=== PATIENT | female | born 1955 | race Caucasian/White ===

== ENCOUNTER → 2019-12-27 13:38 | Outpatient (CLI) | payer MEDICARE, OTHER, SELFPAY ==
[2019-12-28 00:34] LABS: COVID19 Sendout Not Detected (Not Detect)
== END ==
PROVIDERS: Visit Provider Nurse Practitioner
DX: Z01.812 Encounter for preprocedural laboratory examination (principal)
CPT/HCPCS: 87635

== ENCOUNTER 2019-12-30 06:52 | Day surgery (SDC) | payer MEDICARE, OTHER, SELFPAY ==
[2019-12-24 07:29] VITALS: BMI 25.2
[2019-12-30] VITALS (15 sets, daily range): BP systolic 93–161; BP diastolic 44–83; PULSE 82–110; RESP 13–33; TEMP 35.8–36.4; O2SAT 94–100; BMI 24.7
[2019-12-30] MEDS: LACTATED RINGERS 1,000 ML 100 ML IV ×2 (07:36→08:24)
--- NOTE | 2019-12-30 07:39 | PM.PREOP ---
Pre-operative Note COVID-19 COVID-19 status: Negative Result date/Date tested (Pos, Neg/Pending): 12/27/19 Interval Note History & Physical reviewed/Exam performed by Physician: Yes Changes to H&P: No
[2019-12-30] MEDS: MIDAZOLAM 2 MG/2 ML VIAL IV (07:48)
[2019-12-30] MEDS: CEFAZOLIN 2 GM/100 ML FROZ.PIGGY IV (07:49)
--- NOTE | 2019-12-30 07:50 | SUR.PREOP ---
0710 late entry - highly anxious, very talkative, difficult to keep on task.
[2019-12-30] MEDS: BUPIVACAINE 0.5% W/ EPI (PF) 10 ML VIAL 60 ML INJ (08:19)
--- NOTE | 2019-12-30 08:52 | PM.OP.1 ---
Operative Date/Time/Diagnoses Date of procedure: 12/30/19 Time of procedure: 07:45 Pre-op diagnosis: rectocele Post-op diagnosis: same Procedure & Clinicians Procedure: Posterior repair Same procedure as scheduled: Yes Indications: rectocele Surgeon: Magy Zhu Lamination Inspector: Magalys Archibald Anesthesia Type: General Operative Notes Findings: Rectocele, mild cystocele, mild apical descent Closure Type: primary Applied: catheter Estimated Blood Loss (mL): 10 Procedure in detail: Findings: Moderate rectocele. Mild apical descent. Mild cystocel. Cervix and uterus surgically absent. Mild relaxation of the perineal body. No other vaginal or vulvar abnormalities. UOP: N/A EBL: <10ccs IVF: 1400ccs After informed consent was obtained, the patient was taken to the operating room where general anesthesia was obtained without difficulty. She was placed in the dorsal lithotomy position with SCDs in place and operating, with proper placement in the stirrups confirmed. She was prepped and draped in the usual fashion, and placed in slight trendelenburg positioning. 20ccs of 0.5% lidocaine was injected into the posterior vaginal mucosa to facilitate hydrodilation. The posterior vaginal wall was opened vertically and midline to the apex of the rectocele, and the cut edges held with Allis clamps. The perineal body was incised for 1cm and undermined to faciitate reapproximation of the perineal body at the end of the case. The vaginal mucosa was dissected from the rectocele with a combination of blunt dissection and the metzenbaum scissors, exposing perirectal fascia. The perirectal fascia was reapproximated with 2-0 vicryl in a purse string fashion to reduce the bulk of the rectocele. Deep interrupted sutures were placed with 0 vicryl to further reapproximate the anatoliy rectal fascia. A small amount of excess vagina mucosa was trimmed. The posterior vaginal wall was closed with 2-0 vicryl in a running, locked fashion to the introitus. The same suture was used to reapproximate the perineal body, and the perineal skin reapproximated with 2-0 vicryl. A rectal exam at the end of the case confirmed that no sutures were penetrating the rectal tissue. A tobias catheter and vaginal packing were placed at the end of the case. The patient received 2g Ancef at the beginning of the case. She was taken to the PACU in stable condition. Post-operative Condition: stable Disposition: PACU Plan for aftercare: Routine postoperative care
--- NOTE | 2019-12-30 09:00 | SUR.PHASEI ---
Brief run of sinus bradycardia after a PVC, HR 46. Resolved quickly.
--- NOTE | 2019-12-30 09:18 | SUR.PHASEI ---
Dr. Staples notified [facility] 184. No new orders.
--- NOTE | 2019-12-30 09:47 | PC.NURSE ---
Day shift: Pt on AC unit from PACU at approx 0945. Denies pain or chest pain. Peripad checked w/ LATRINE CLEANER w/ scant discharge. SCD's on. Avelar output 825mls light clear yellow and emptied by LATRINE CLEANER.
--- NOTE | 2019-12-30 10:16 | SUR.PHASEI ---
Patient transferred to the floor. VS stable. Liana-pad unchanged. IV saline locked. Belongings bag with patient.
[2019-12-30] MEDS: IBUPROFEN 400 MG TABLET PO ×3 (11:13→23:56)
[2019-12-30] MEDS: DOCUSATE 100 MG CAPSULE PO (11:50)
--- NOTE | 2019-12-30 12:03 | PM.GYNOP.1 ---
Operative Date/Time/Diagnoses Date of procedure: 12/30/19 Time of procedure: 12:04 Pre-op diagnosis: Term intrauterine History of prior section Post-op diagnosis: same Procedure & Clinicians Procedure: Procedures Operation Date: 12/30/19 07:45 Actual Procedures Side Surgeon p Posterior Colporrhaphy Magy Zhu MD
[2019-12-30] MEDS: INSULIN ASPART 100 UNIT/ML 10ML VIAL SUBCUT (13:12)
[2019-12-30] MEDS: HYDROMORPHONE 0.5 MG INJ IV (14:07)
[2019-12-30 14:35] LABS: Add Manual Diff / Slide Review NO; Basophils Absolute Auto 0 /uL (0-100); Basophils Percent Auto 0.2 % (0-2); Eosinophils Absolute Auto 0 /uL (0-450); Eosinophils Percent Auto 0.1 % (2-4); Hematocrit 40.4 % (36-46); Hemoglobin 13.5 g/dL (12.0-16.0); Lymphocytes Absolute Auto 400 /uL (1100-4500); Lymphocytes Percent Auto 4.6 % (25-40); Mean Corpuscular HGB Conc 33.4 % (30-36); Mean Corpuscular Hemoglobin 30.3 PG (26-34); Mean Corpuscular Volume 90.8 fL (80-100); Monocytes Absolute Auto 100 /uL (0-900); Monocytes Percent Auto 1.1 % (3-14); Neutrophils Absolute Auto 9100 /uL (1500-7000); Platelet Count 282 X10^3/uL (150-400); Red Blood Cell Count 4.45 X10^6/uL (4.0-5.2); Red Cell Distribution Width 12.1 % (11.6-14.8); White Blood Cell Count 9.7 X10^3/uL (4.5-11.0)
[2019-12-30 14:49] LABS: Hemoglobin A1C% w Est Avg Glu 6.5 % (4.0-6.0)
[2019-12-30] MEDS: ONDANSETRON 4 MG/2 ML INJ IV (15:32)
[2019-12-30] MEDS: INSULIN ASPART 100 UNIT/ML INSULN PEN SUBCUT ×3 (16:39→21:22)
--- NOTE | 2019-12-30 16:50 | P.PN_ITS ---
Subjective Subjective Date Patient Seen: 12/30/19 Time Patient Seen: 16:50 Interval history: This patient is POD#0 s/p uncomplicated posterior repair. The patient is meeting postoperative milestones appropriately, with good pain control, minimal vaginal bleeding, good urine output with a tobias catheter and vaginal packing in place, and tolerating PO intake well. The patient previously reported good diabetes and HTN control, but has had elevated FSGs since the HI CU. She is now on FSGs ACHS and a sliding scale. Patient mildly tachycardic, agitated though this is unchanged from her baseline at clinic visits. Patient herself reports feeling well, appears at her clinic baseline. Exam Vital Signs (past 8 hours): - 12/30/19 08:52 12/30/19 08:57 12/30/19 09:01 Temperature 97.1 F L Pulse Rate 84 83 83 Respiratory Rate 33 H 17 18 Blood Pressure 95/50 L 93/46 L 98/44 L Pulse Oximetry 98 94 94 12/30/19 09:07 12/30/19 09:12 12/30/19 09:27 Temperature Pulse Rate 92 H 104 H 102 H Respiratory Rate 13 18 16 Blood Pressure 111/60 138/61 146/78 H Pulse Oximetry 96 97 99 12/30/19 09:29 12/30/19 09:47 12/30/19 10:17 Temperature 96.5 F L 97.0 F L 97.0 F L Pulse Rate 97 H 96 H Respiratory Rate 14 16 Blood Pressure 148/75 H 153/78 H Pulse Oximetry 100 99 12/30/19 10:47 12/30/19 11:47 12/30/19 12:47 Temperature 97.0 F L 97.1 F L 97.1 F L Pulse Rate 100 H 100 H 110 H Respiratory Rate 16 16 16 Blood Pressure 148/78 H 147/75 H 161/82 H Pulse Oximetry 97 97 98 12/30/19 15:28 Temperature 96.4 F L Pulse Rate 107 H Respiratory Rate 20 Blood Pressure 152/76 H Pulse Oximetry 98 Oxygen Delivery Method Room Air Oxygen Flow Rate 0 GI Palpation: soft and No tender Other: Packing minimally tinted, no external bleeding. Tobias catheter in place. Psych Appearance: disheveled Mental Status: other (mildly agitated but at her clinic baseline) Mood: other (mildly agitated but at her clinic baseline) Objective Labs Result Diagrams: 12/30/19 14:25 Labs: Laboratory Results - last 24 hr 12/30/19 12/30/19 14:25 Unknown WBC 9.7 RBC 4.45 Hgb 13.5 Hct 40.4 MCV 90.8 MCH 30.3 MCHC 33.4 RDW 12.1 Plt Count 282 Neut % (Auto) 94.0 H Lymph % (Auto) 4.6 L [place] % (Auto) 1.1 L Eos % (Auto) 0.1 L Baso % (Auto) 0.2 Neut # (Auto) 9100 H Lymph # (Auto) 400 L [place] # (Auto) 100 Eos # (Auto) 0 Baso # (Auto) 0 Hemoglobin A1c 6.5 H Assessment & Plan Post-op Postoperative Procedures: Procedures Operation Date: 12/30/19 07:45 Actual Procedures Side Surgeon p Posterior Colporrhaphy Magy Zhu MD Postoperative day: 0 Postoperative status: doing well Postoperative status narrative: Patient with difficult to control blood glucose, on discussion does report that her PCP has been trying to get her to take insuli n for years. Will hold home meds for now and continue FSGs and sliding scale. Patient mildly hypertensive, home BP medications taken in AM and held this AM. Will monitor BPs as well. - FSGs ACHS, though repeat in 2 hours given continued elevation - Holding home meds, close monitoring of vitals signs - SCDs while sedentary, incentive spirometer provided and use encouraged - Carbohydrate controlled diet - For removal of tobias catheter and packing in AM Postoperative plan: see orders, ambulate and advance diet Time Spent With Patient Time with patient: less than 15 minutes Quality VTE Deep Vein Thrombosis/Pulmonary Embolism Present on Admission: No
[2019-12-30] MEDS: FAMOTIDINE 20 MG/50 ML PIGGYBACK 200 MG IV (16:53)
[2019-12-30] MEDS: OXYCODONE IR 5 MG TABLET PO (22:15)
[2019-12-31 00:13] VITALS: BP 149/77; PULSE 89; RESP 16; TEMP 36.3; O2SAT 99
[2019-12-31 04:22] VITALS: BP 146/68; PULSE 84; RESP 16; TEMP 36.2; O2SAT 100
[2019-12-31 05:13] LABS: Add Manual Diff / Slide Review NO; Basophils Absolute Auto 0 /uL (0-100); Basophils Percent Auto 0.2 % (0-2); Eosinophils Absolute Auto 100 /uL (0-450); Eosinophils Percent Auto 0.8 % (2-4); Hematocrit 35.5 % (36-46); Hemoglobin 12.4 g/dL (12.0-16.0); Lymphocytes Absolute Auto 1100 /uL (1100-4500); Lymphocytes Percent Auto 11.5 % (25-40); Mean Corpuscular HGB Conc 34.9 % (30-36); Mean Corpuscular Hemoglobin 30.7 PG (26-34); Mean Corpuscular Volume 87.9 fL (80-100); Monocytes Absolute Auto 600 /uL (0-900); Monocytes Percent Auto 6.4 % (3-14); Neutrophils Absolute Auto 8100 /uL (1500-7000); Neutrophils Percent Auto 81.1 % (50-75); Platelet Count 249 X10^3/uL (150-400); Red Blood Cell Count 4.04 X10^6/uL (4.0-5.2); Red Cell Distribution Width 11.8 % (11.6-14.8); White Blood Cell Count 9.9 X10^3/uL (4.5-11.0)
[2019-12-31] MEDS: IBUPROFEN 400 MG TABLET PO ×2 (05:39→11:40)
[2019-12-31 07:25] VITALS: BP 136/67; PULSE 87; RESP 18; TEMP 36.3; O2SAT 100
--- NOTE | 2019-12-31 08:00 | P.PN_ITS ---
Subjective Subjective Date Patient Seen: 12/31/19 Time Patient Seen: 08:00 Interval history: This patient is a 64yo POD#1 s/p uncomplicated posterior repair, feeling well this AM. Patient's FSGs have normalized overnight, and she reports feeling well with good pain control, scant bleeding on pad, tolerating copious PO, and passing flatus. Packing and tobias removed at bedside. Exam Vital Signs (past 8 hours): - 12/31/19 00:13 12/31/19 04:22 Temperature 97.4 F L 97.2 F L Pulse Rate 89 84 Respiratory Rate 16 16 Blood Pressure 149/77 H 146/68 H Pulse Oximetry 99 100 Oxygen Delivery Method Room Air Oxygen Flow Rate 0 Const General: cooperative, healthy appearing and comfortable Resp Auscultation: clear to auscultation bilaterally Cardio Rate: regular rate Rhythm: regular rhythm GI Palpation: soft and No tender External Female Exam: normal external appearance Speculum Exam - Vagina: normal appearance of the vagina Other: Packing lightly tinged with blood, no bright red blood, no active bleeding Objective Labs Result Diagrams: 12/31/19 04:30 Labs: Laboratory Results - last 24 hr 12/30/19 12/30/19 12/31/19 14:25 Unknown 04:30 WBC 9.7 9.9 RBC 4.45 4.04 Hgb 13.5 12.4 Hct 40.4 35.5 L MCV 90.8 87.9 MCH 30.3 30.7 MCHC 33.4 34.9 RDW 12.1 11.8 Plt Count 282 249 Neut % (Auto) 94.0 H 81.1 H Lymph % (Auto) 4.6 L 11.5 L [place] % (Auto) 1.1 L 6.4 Eos % (Auto) 0.1 L 0.8 L Baso % (Auto) 0.2 0.2 Neut # (Auto) 9100 H 8100 H Lymph # (Auto) 400 L 1100 [place] # (Auto) 100 600 Eos # (Auto) 0 100 Baso # (Auto) 0 0 Hemoglobin A1c 6.5 H Assessment & Plan Post-op Assessment and plan (1) Prolapse of female pelvic organs: Assessment and Plan narrative: This patient is doing well s/p her posterior repair, meeting postoperative goals appropriately and for a voiding trial and trial of ambulation this AM. The patient is feeling well and eager for discharge, and discharge precautions were reiterated. - VT and ambulation this AM - CBC stable, UOP good, FSGs normalizing, VSS - Lisinopril 40mg and protonix 20mg x1 ordered - Patient uses stool softener at home, encouraged to take BID instead of daily if constipated after surgery - activity limitations and precautions discussed, will reiterate prior to discharge Postoperative Procedures: Procedures Operation Date: 12/30/19 07:45 Actual Procedures Side Surgeon p Posterior Colporrhaphy Magy Zhu MD Postoperative day: 1 Postoperative status: doing well Postoperative plan: routine post-op care, ambulate, voiding trials and discharge Time Spent With Patient Time with patient: 15-24 minutes Quality VTE Deep Vein Thrombosis/Pulmonary Embolism Present on Admission: No
[2019-12-31] MEDS: INSULIN ASPART 100 UNIT/ML INSULN PEN SUBCUT ×2 (08:21→11:42)
[2019-12-31] MEDS: DOCUSATE 100 MG CAPSULE PO (08:24)
[2019-12-31] MEDS: lisinopriL 20 MG TABLET 40 MG PO (08:24)
[2019-12-31] MEDS: OXYCODONE IR 5 MG TABLET PO ×2 (08:24→12:54)
[2019-12-31] MEDS: PANTOPRAZOLE 40 MG VIAL 20 MG IV (08:25)
--- NOTE | 2019-12-31 09:55 | PM.DS.1 ---
History of Present Illness History of Present Illness Date Patient Seen: 12/31/19 Time Patient Seen: 09:56 Chief complaint: *[id number] Narrative: This patient is a 64yo s/p uncomplicated posterior repair for a symptomatic rectocele. She has a mild cystocele and apical descent, but did not desire these repaired at this time. Her postoperative recovery was complicated by elevated FSGs on postop day 0 that improved by POD#1. Her recovery was otherwise uncomplicated, and she was discharged on POD#1 after meeting all postoperative goals. Discharge Providers Provider Discharge Date: 12/31/19 Primary care physician: Olesya Sellers MD Consults: 12/30/19 10:11 Consult to Discharge Planning Routine Comment: Discharge provider: Magy Zhu MD Summary Hospital Course Discharge Diagnosis: Rectocele s/p posterior repair Hospital Course: This patient is a 64yo s/p uncomplicated posterior repair for a symptomatic rectocele. She has a mild cystocele and apical descent, but did not desire these repaired at this time. Her postoperative recovery was complicated by elevated FSGs on postop day 0 that improved by POD#1. Her recovery was otherwise uncomplicated, and she was discharged on POD#1 after meeting all postoperative goals. Status at Discharge Cognitive/behavioral status at discharge: at baseline, oriented Functional status at discharge: independent ambulation Overall status at discharge: patient is progressing back to baseline Time Spent with Patient Time spent: Greater than 30 minutes Exam Vital Signs (past 8 hours): - 12/31/19 04:22 12/31/19 07:25 Temperature 97.2 F L 97.4 F L Pulse Rate 84 87 Respiratory Rate 16 18 Blood Pressure 146/68 H 136/67 Pulse Oximetry 100 100 Oxygen Delivery Method Room Air Oxygen Flow Rate 0 Narrative Exam Narrative: Patient ambulating freely about room. Objective Labs Result Diagrams: 12/31/19 04:30 Labs: Laboratory Results - last 24 hr 12/30/19 12/30/19 12/31/19 14:25 Unknown 04:30 WBC 9.7 9.9 RBC 4.45 4.04 Hgb 13.5 12.4 Hct 40.4 35.5 L MCV 90.8 87.9 MCH 30.3 30.7 MCHC 33.4 34.9 RDW 12.1 11.8 Plt Count 282 249 Neut % (Auto) 94.0 H 81.1 H Lymph % (Auto) 4.6 L 11.5 L [place] % (Auto) 1.1 L 6.4 Eos % (Auto) 0.1 L 0.8 L Baso % (Auto) 0.2 0.2 Neut # (Auto) 9100 H 8100 H Lymph # (Auto) 400 L 1100 [place] # (Auto) 100 600 Eos # (Auto) 0 100 Baso # (Auto) 0 0 Hemoglobin A1c 6.5 H Discharge Plan Discharge Plan Patient Disposition: Home Discharge Med Rec/Prescriptions Prescriptions: New oxycodone 5 mg tablet 5 mg PO Q8H PRN (Reason: pain) Qty: 20 RF: 0 docusate sodium [Colace] 100 mg capsule 100 mg PO BID Qty: 30 RF: 0 Continued metformin 500 mg tablet 1,000 mg PO SEEINSTR RF: 0 aspirin 81 mg tablet,delayed release (DR/EC) 81 mg PO DAILY RF: 0 lisinopril 40 mg tablet 40 mg PO DAILY RF: 0 atorvastatin 40 mg tablet 40 mg PO DAILY RF: 0 glipizide 10 mg tablet 20 mg PO BEDTIME RF: 0 Ocuvite Eye Health 50 mg-15 unit- 4.5 mg-2.5 mg tablet,chewable 2 tab PO DAILY RF: 0 diphenhydramine HCl [Benadryl] 25 mg capsule 25 mg PO BEDTIME RF: 0 multivitamin Tablet 1 tab PO DAILY RF: 0 cholecalciferol (vitamin D3) [Vitamin D3] 25 mcg (1,000 unit) Capsule 50 mcg PO DAILY RF: 0 Follow up/Referrals: Magy Zhu MD [Physician] - 2 Weeks (Postop check) Discharge Orders: Discharge (Order); Ordered 12/31/19 Ordered By: Magy Zhu Provider Discharge Instructions Activity: Nothing in the vagina for 8 weeks. No bathing or swimming for 8 weeks. Avoid heavy lifting over 10 lbs for 8 weeks. If you develop increasing bleeding, discharge, pain, fevers, chills, urinary tract infection symptoms, trouble breathing, chest pain, or any other concerning symptoms, call or come to the emergency department. Skin/Wound/Dressing Care Report to your healthcare provider any signs of infection, such as:: chills, fever, night sweats, increased pain, unusual drainage and unusual redness Visit Report/Discharge Packet Stand Alone Forms: Surgery Discharge Discharge Data Primary Care Provider: Olesya Sellers Attending Provider: Magy Zhu VTE Deep Vein Thrombosis/Pulmonary Embolism Present on Admission: No
--- NOTE | 2019-12-31 11:29 | CM.DANOTE ---
DCP/Assessment: Reviewed chart. Patient is a 64yr old female admitted to [facility] for elective Rectocele posterior repair performed on 12-30-[address] Zhu. PCP is Dr. Sellers. Primary payor is 1)Medicare 2)[employer]. Met with patient this AM explained CM/SW role. Patient on phone with her daughter in [place] at time of visit. Patient reports that her current plan is home today. Spoke with RN whom confirms discharge, and reports that patient's spouse is picking her up after lunch. Currently, patient without any d/c planning needs. P: Home today. CÉSAR Dodson Discharge Planning/Care Management CM Discharge Assessment Start: 12/31/19 11:23 Freq: Status: Active Protocol: Document 12/31/19 11:23 KJS (Rec: 12/31/19 11:29 KJS [id number]) Discharge Planning Assessment Assigned Airplane Fueler CÉSAR Dodson Contact Information Pepe Meadows (spouse) # [phone] Advance Directives? No History Provided By Patient,Medical Record Prior Living Arrangements House Household Members spouse Type of transporation used prior to Drives own vehicle admit Independent with ADL's Yes Is patient alert and oriented? Yes Barriers to Discharge No Discharge Plan Home Transportation Arrangement Family to provide transport. Referrals Initiated None needed Whiteboard Updated in Patient Room with Yes name and ext. # of Airplane Fueler Review Status In Process Next Review Type Continued Stay Review Pre-Anesthesia Assessment Start: 12/24/19 07:29 Freq: Status: Active Protocol: Document 12/24/19 07:29 CAB (Rec: 12/24/19 07:35 CAB [id number]) Pre-Anesthesia Assessment Patient Information Reviewed Via Chart Review Primary Care Provider Rich Reynolds Seen Specialist in Last 12 Months Yes Specialist Seen Floor Cleaner Primary Language Bolivian Height 149.86 cm Weight 56.699 kg Body Mass Index (BMI) 25.2 Barriers to Learning None Hx Anesthesia Reactions No Anesthesia Review Requested No Corporate Development Intern No Smoking Status Never smoker History of Falling (Recent or History of No ) Patient is completely paralyzed or No completely immobile Mental Status Oriented to own ability Is patient on oxygen? No Does patient have GRIFFIN/SOB No Hx Sleep Apnea No Currently Taking a Beta Akash No Hx Chest Pain No Hx SOB No Hx Syncope or Dizziness No Anti-Coagulant Therapy No Has a Equipment Analyst No Cardiac Testing No Hx Pacemaker/ICD No Pacemaker Rep Required? No Cardiac Clearance Received Not Applicable Bladder Pattern Incontinent,Incontinent, Stress,Retention Urinary Catheter Present No Hx Urinary Self Catheterization No Diabetes No Patient No Lactating No Presence of External or Internal Medical No Devices Have you had any close contact with Unknown someone diagnosed with COVID-19? Marital Status Lives With spouse Patient Discharge Plan Description Return Home
--- NOTE | 2019-12-31 12:58 | PC.NURSE ---
Day shift: Pt left unit at approx 1300 via WC to car driven by her sppouse. Taken by JOSE MIGUEL Novak. Paperwork signed and all questions answered. Pt has all personal belongings. Pt also has MD scrip for oxycodone.
== END 2019-12-31 12:59 | disposition home or self-care (01) ==
LOC: OR 06:55 → AC 06:55
PROVIDERS: PCP Student in an Organized Health Care Education/Training Program; Referring Provider Obstetrics & Gynecology; Visit Provider Obstetrics & Gynecology
PROC: (CPT 57250; principal; 2019-12-30 07:45)
DX: N81.6 Rectocele (principal); N81.10 Cystocele, unspecified; I10 Essential (primary) hypertension; K21.9 Gastro-esophageal reflux disease without esophagitis; E11.9 Type 2 diabetes mellitus without complications; Z79.84 Long term (current) use of oral hypoglycemic drugs
CPT/HCPCS: 57250; 36415; 82962; 83036; 85025; C9113; J0690; J1100; J1170; J2250; J2405; J2704; J3010

== ENCOUNTER 2021-01-15 19:15 | Emergency (ER) | payer MEDICARE, OTHER, SELFPAY ==
[2019-12-30 10:27] VITALS: BMI 24.7
[2021-01-15 19:53] LABS: COVID19 -Nasal RAPID POSITIVE (Negative)
[2021-01-15 19:54] VITALS: BP 154/64; PULSE 83; RESP 15; TEMP 36.2; O2SAT 99; BMI 23.4
--- NOTE | 2021-01-15 21:26 | ED.GENADULT ---
HPI - General Adult General Chief complaint: Upper Respiratory Symptoms Stated complaint: Possible COVID, Taste Off, Dizzy,Left Kidney Pain Time Seen by Provider: 01/15/21 21:22 Source: patient Mode of arrival: Ambulatory Limitations: no limitations History of Present Illness HPI narrative: 65-year-old female who is here for evaluation of a couple days of feeling like her taste is off, dizzy, left-sided flank pain, she is not immunized against COVID. No fevers. No shortness of breath. No coughing. Has not tried anything for symptoms prior to arrival. She is concerned about COVID-19. Related Data Home Medications Medication Instructions Recorded Confirmed aspirin 81 mg tablet,delayed 81 mg PO DAILY 08/02/19 02/11/20 release atorvastatin 40 mg tablet 40 mg PO DAILY 08/02/19 02/11/20 glipizide 10 mg tablet 20 mg PO BEDTIME 08/02/19 02/11/20 lisinopril 40 mg tablet 40 mg PO DAILY 08/02/19 02/11/20 metformin 500 mg tablet 1,000 mg PO SEEINSTR 08/02/19 02/11/20 vit C 50 mg-E 15 unit-zinc cit 4.5 2 tab PO DAILY 08/02/19 02/11/20 mg-lutein 2.5 mg-zeaxan chew tablet ([employer]) diphenhydramine HCl 25 mg capsule 25 mg PO BEDTIME 09/06/19 02/11/20 (Benadryl) cholecalciferol (vitamin D3) 25 50 mcg PO DAILY 12/30/19 02/11/20 mcg (1,000 unit) capsule (Vitamin D3) multivitamin 1 tab PO DAILY 12/30/19 02/11/20 Previous Rx's Medication Instructions Recorded docusate sodium 100 mg capsule 100 mg PO BID #30 cap 12/31/19 (Colace) Allergies Allergy/AdvReac Type Severity Reaction Status Date / Time garlic AdvReac Intermediate acid reflux Verified 02/11/20 10:43 Influenza Virus Vaccines AdvReac Mild Verified 02/11/20 10:43 acetaminophen [From Tylenol] AdvReac Itching Verified 02/11/20 10:43 Review of Systems Constitutional Constitutional: Denies fever(s) Cardiovascular Comments: No chest pain Respiratory Comments: No cough Gastrointestinal Comments: Left-sided flank pain Integumentary/Breasts Comments: No rashes Hematologic/Lymphatic On Anticoagulants: No Patient History Medical History Acid reflux Allergies (~1962) Anxiety (~2018) Asthma (~2019) Benign familial tremor (~1964) Bronchitis Chicken pox (~1962) H/O vaginal delivery Measles (~1963) Mumps (~1958) Wears dentures Surgical History Anesthesia H/O vaginal hysterectomy History of hernia repair (~1988) History of tonsillectomy (~1971) History of tubal ligation (~1978) Tumor (~1965) Family History Father Bone cancer History of heart disease Hypertension Mother History of heart disease Hypertension Stroke Brother History of heart disease Hypertension Sister History of heart disease Grandfather Suicide Social History household members: spouse Smoking Status: Never smoker alcohol intake: never Smoking Status: Never smoker Substance Use Type: does not use Exam Initial Vital Signs Initial Vital Signs: Vital Signs Temperature 97.1 F L 01/15/21 19:54 Pulse Rate 83 01/15/21 19:54 Respiratory Rate 15 01/15/21 19:54 Blood Pressure 154/64 H 01/15/21 19:54 Pulse Oximetry 99 01/15/21 19:54 Const General: cooperative HENMT Head: normal to inspection Resp Effort & Inspection: normal respiratory effort Auscultation: clear to auscultation bilaterally Cardio Rate: regular rate GI Inspection: normal to inspection Skin General: no rashes or lesions noted Neuro General: patient alert, patient awake and moves all extremities Extrem General: normal to inspection and capillary refill normal Psych Appearance: grossly normal and well kempt Course Orders Ordered: ED Orders 01/15/21 19:30 COVID19 -Nasal swab/Pre-Proc Stat Vital Signs Vital signs: Vital Signs - 8 hr 01/15/21 19:54 Temperature 97.1 F L Pulse Rate 83 Respiratory Rate 15 Blood Pressure 154/64 H Pulse Oximetry 99 Medical Decision Making Lab Data Lab results reviewed: Yes I reviewed the patient's lab results. Labs: Lab Results 01/15/21 Range/Units 19:30 SARS-CoV-2 (PCR) Positive H (Negative) MDM Narrative Medical decision making narrative: Patient's COVID is positive. No respiratory distress. No hypoxia. She is not immunized. Will hold on further workup for now. Patient was given current recommendations as far as isolating herself. We did discuss things she could try at home for headaches and fevers. She was given strict return precautions. She expressed understanding and agreement. Discharge Plan Departure Patient Disposition: Home Clinical Impression: COVID-19 Instructions: DI for COVID-19 (Suspected or Confirmed ) Activity Restrictions/Additional Instructions: Your positive for COVID today. Your to now quarantine yourself for the next 10 days and until your symptom free for 24 hours. Continue all of your medications as directed. Contact her primary doctor for follow-up. Return to the emergency department for any new or worsening symptoms Prescriptions: No Action metformin 500 mg tablet 1,000 mg PO SEEINSTR RF: 0 aspirin 81 mg tablet,delayed release (DR/EC) 81 mg PO DAILY RF: 0 lisinopril 40 mg tablet 40 mg PO DAILY RF: 0 atorvastatin 40 mg tablet 40 mg PO DAILY RF: 0 glipizide 10 mg tablet 20 mg PO BEDTIME RF: 0 Ocuvite Eye Health 50 mg-15 unit- 4.5 mg-2.5 mg tablet,chewable 2 tab PO DAILY RF: 0 diphenhydramine HCl [Benadryl] 25 mg capsule 25 mg PO BEDTIME RF: 0 multivitamin Tablet 1 tab PO DAILY RF: 0 cholecalciferol (vitamin D3) [Vitamin D3] 25 mcg (1,000 unit) Capsule 50 mcg PO DAILY RF: 0 docusate sodium [Colace] 100 mg capsule 100 mg PO BID Qty: 30 RF: 0 Referrals: Olesya Sellers MD [Primary Care Provider] -
== END 2021-01-15 21:37 | disposition home or self-care (01) ==
PROVIDERS: Emergency Provider Emergency Medicine; PCP Student in an Organized Health Care Education/Training Program
DX: U07.1 COVID-19 (principal); R10.9 Unspecified abdominal pain
CPT/HCPCS: 87635; 99281; 99282; C9803

== ENCOUNTER 2021-08-08 23:05 | Emergency (ER) | payer MEDICARE, OTHER, SELFPAY ==
[2019-12-30 10:27] VITALS: BMI 24.7
[2021-08-08 23:15] VITALS: BP 200/95; PULSE 109; RESP 20; TEMP 36.6; O2SAT 100; BMI 23.2
[2021-08-08 23:19] VITALS: PULSE 94; RESP 26; O2SAT 94
--- NOTE | 2021-08-08 23:26 | ED_ITS ---
HPI - Arrhythmia/Palpitations General Chief Complaint: Arrhythmia/Palpitations Stated Complaint: heart racing/ankle swelling Time Seen by Provider: 08/08/21 23:07 Source: patient Mode of arrival: Ambulatory History of Present Illness HPI narrative: Patient is a 66-year-old female who is here for evaluation of several months of increasing occasions where she is having heart racing and palpitations and feeling like it is skipping beats. No fevers. No chest pain. No lightheadedness. Has not passed out. Has not been evaluated for this in the past. She states she is a diabetic. She has also noticed over the past couple days she is having swelling in her ankles. Related Data Home Medications Medication Instructions Recorded Confirmed aspirin 81 mg tablet,delayed 81 mg PO DAILY 08/02/19 02/15/21 release atorvastatin 40 mg tablet 40 mg PO DAILY 08/02/19 02/15/21 lisinopril 40 mg tablet 40 mg PO DAILY 08/02/19 02/15/21 metformin 500 mg tablet 1,000 mg PO SEEINSTR 08/02/19 02/15/21 vit C 50 mg-E 15 unit-zinc cit 4.5 2 tab PO DAILY 08/02/19 02/15/21 mg-lutein 2.5 mg-zeaxan chew tablet ([email or web address]) diphenhydramine HCl 25 mg capsule 25 mg PO BEDTIME 09/06/19 02/15/21 (Benadryl) cholecalciferol (vitamin D3) 25 50 mcg PO DAILY 12/30/19 02/15/21 mcg (1,000 unit) capsule (Vitamin D3) multivitamin 1 tab PO DAILY 12/30/19 02/15/21 Previous Rx's Medication Instructions Recorded furosemide 20 mg tablet (Lasix) 20 mg PO DAILY #5 tab 08/09/21 furosemide 20 mg tablet (Lasix) 20 mg PO DAILY 5 Days tab 08/09/21 Allergies Allergy/AdvReac Type Severity Reaction Status Date / Time garlic AdvReac Intermediate acid reflux Verified 02/15/21 15:30 Influenza Virus Vaccines AdvReac Mild Verified 02/15/21 15:30 acetaminophen [From Tylenol] AdvReac Itching Verified 02/15/21 15:30 Review of Systems Constitutional Constitutional: Denies chills and Denies headache(s) ENT Ears, Nose, Mouth, and Throat: Denies headache(s) Cardiovascular Cardiovascular: Denies chest pain, Reports rapid heart rate, Reports pedal edema, Reports irregular heart rhythm, Denies lightheadedness and Denies dyspnea Respiratory Respiratory: Denies dyspnea Gastrointestinal Gastrointestinal: Reports system reviewed and no additional complaints, except as documented Musculoskeletal Musculoskeletal: Reports system reviewed and no additional complaints, except as documented and Reports as per HPI Integumentary/Breasts Skin/Breast: Reports system reviewed and no additional complaints, except as documented Neurologic Neurologic: Denies headache(s) Hematologic/Lymphatic On Anticoagulants: No Patient History Medical History Acid reflux Allergies (~1962) Anxiety (~2018) Asthma (~2019) Benign familial tremor (~1964) Bronchitis Chicken pox (~1962) H/O vaginal delivery Measles (~1963) Mumps (~1958) POP-Q stage 2 cystocele Vaginal vault prolapse after hysterectomy Wears dentures Surgical History Anesthesia H/O vaginal hysterectomy History of hernia repair (~1988) History of tonsillectomy (~1971) History of tubal ligation (~1978) Tumor (~1965) Family History Father Bone cancer History of heart disease Hypertension Mother History of heart disease Hypertension Stroke Brother History of heart disease Hypertension Sister History of heart disease Grandfather Suicide Social History household members: spouse Smoking Status: Never smoker alcohol intake: never Smoking Status: Never smoker alcohol intake frequency: 0-2 drinks per day Substance Use Type: does not use Exam Initial Vital Signs Initial Vital Signs: Vital Signs Temperature 97.9 F 08/08/21 23:15 Pulse Rate 109 H 08/08/21 23:15 Respiratory Rate 20 08/08/21 23:15 Blood Pressure 200/95 H 08/08/21 23:15 Pulse Oximetry 100 08/08/21 23:15 HENMT Head: normal to inspection and normocephalic Resp Effort & Inspection: normal respiratory effort Auscultation: clear to auscultation bilaterally Cardio Rate: regular rate Rhythm: regular rhythm GI Palpation: soft, No firm and No tender Skin General: no rashes or lesions noted Neuro General: patient alert, patient awake and moves all extremities Extrem General: edema Psych Mood: anxious mood Course Orders Ordered: ED Orders 08/08/21 23:20 BNP [NT-proBNP (BNP-Adult 18+)] Stat Complete Blood Count AUTO DIFF Stat Comprehensive Metabolic Panel Stat Lipase Stat Magnesium Stat Phosphorous Stat Thyroid Stimulating Hormone Stat 08/08/21 23:28 XR chest 1V Stat Sodium Chloride (Normal Saline 0.9%) 1,000 mls @ 500 mls/hr IV BOLUS ONE Stop: 08/09/21 01:25 Last Admin: 08/08/21 23:34 Dose: 500 mls/hr Documented by: FEI Vital Signs Vital signs: Vital Signs - 8 hr 08/08/21 23:15 08/08/21 23:19 08/08/21 23:30 Temperature 97.9 F Pulse Rate 109 H 94 H 83 Respiratory Rate 20 26 H 20 Blood Pressure 200/95 H Pulse Oximetry 100 94 100 08/08/21 23:53 08/09/21 00:00 08/09/21 00:01 Temperature Pulse Rate 80 79 80 Respiratory Rate 7 L 34 H 32 H Blood Pressure 176/77 H 156/111 H Pulse Oximetry 100 100 100 MDM - Arrhythmia/Palpitations Lab Data Attestation: I reviewed the patient's lab results. Result diagrams: 08/08/21 23:20 08/08/21 23:20 Labs: Lab Results 08/08/21 08/08/21 08/08/21 Range/Units 23:20 23:20 23:20 WBC 5.7 (4.5-11.0) X10^3/uL RBC 4.46 (4.0-5.2) X10^6/uL Hgb 13.8 (12.0-16.0) g/dL Hct 39.0 (36-46) % MCV 87.3 (80-100) fL MCH 30.9 (26-34) PG MCHC 35.4 (30-36) % RDW 11.8 (11.6-14.8) % Plt Count 223 (150-400) X10^3/uL Neut % (Auto) 52.4 (50-75) % Lymph % (Auto) 37.8 (25-40) % [place] % (Auto) 6.2 (3-14) % Eos % (Auto) 3.3 (2-4) % Baso % (Auto) 0.3 (0-2) % Neut # (Auto) 3000 (2479-7970) /uL Lymph # (Auto) 2100 (0580-3054) /uL [place] # (Auto) 400 (0-900) /uL Eos # (Auto) 200 (0-450) /uL Baso # (Auto) 0 (0-100) /uL Sodium 135 L (137-145) mmol/L Potassium 3.2 L (3.4-5.1) mmol/L Chloride 101 (98-107) mmol/L Carbon Dioxide 29 (22-32) mmol/L BUN 11 (7-17) mg/dL Creatinine 0.55 (0.52-1.04) mg/dL Estimated GFR > 60.0 (>60) mL/min BUN/Creatinine Ratio 20.0 (6-22) Glucose 167 H (80-110) mg/dL Calcium 10.0 (8.4-10.2) mg/dL Phosphorus 3.6 (2.8-4.1) mg/dL Magnesium 1.7 (1.6-2.3) mg/dL Total Bilirubin 0.7 (0.2-1.3) mg/dL AST 34 (14-36) IU/L ALT 37 H (<35) IU/L Alkaline Phosphatase 109 (38-126) U/L NT-Pro-B Natriuret Pep (<125) pg/mL Total Protein 7.3 (6.3-8.2) g/dL Albumin 4.6 (3.5-5.0) g/dL Globulin 2.7 (1.7-4.1) g/dL Albumin/Globulin Ratio 1.7 (1.0-2.8) Lipase 228 (23-300) U/L TSH 4.11 (0.47-4.68) uIU/mL 08/08/21 Range/Units 23:20 WBC (4.5-11.0) X10^3/uL RBC (4.0-5.2) X10^6/uL Hgb (12.0-16.0) g/dL Hct (36-46) % MCV (80-100) fL MCH (26-34) PG MCHC (30-36) % RDW (11.6-14.8) % Plt Count (150-400) X10^3/uL Neut % (Auto) (50-75) % Lymph % (Auto) (25-40) % [place] % (Auto) (3-14) % Eos % (Auto) (2-4) % Baso % (Auto) (0-2) % Neut # (Auto) (4044-9454) /uL Lymph # (Auto) (9992-1477) /uL [place] # (Auto) (0-900) /uL Eos # (Auto) (0-450) /uL Baso # (Auto) (0-100) /uL Sodium (137-145) mmol/L Potassium (3.4-5.1) mmol/L Chloride (98-107) mmol/L Carbon Dioxide (22-32) mmol/L BUN (7-17) mg/dL Creatinine (0.52-1.04) mg/dL Estimated GFR (>60) mL/min BUN/Creatinine Ratio (6-22) Glucose (80-110) mg/dL Calcium (8.4-10.2) mg/dL Phosphorus (2.8-4.1) mg/dL Magnesium (1.6-2.3) mg/dL Total Bilirubin (0.2-1.3) mg/dL AST (14-36) IU/L ALT (<35) IU/L Alkaline Phosphatase (38-126) U/L NT-Pro-B Natriuret Pep 144 H (<125) pg/mL Total Protein (6.3-8.2) g/dL Albumin (3.5-5.0) g/dL Globulin (1.7-4.1) g/dL Albumin/Globulin Ratio (1.0-2.8) Lipase (23-300) U/L TSH (0.47-4.68) uIU/mL Urine Dip Bedside Urine Glucose Negative Bedside Urine Bilirubin - Negative Bedside Urine Ketone +/- 5 Urine Specific [place] 1.015 Bedside Urine Occult Blood - Negative Bedside Urine pH 6.5 Bedside Urine Protein - Negative Bedside Urine Urobilinogen - Negative Bedside Urine Nitrite - Negative Bedside Urine Leukocytes - Negative Esterase Imaging Data Chest x-ray: Radiologist's Impresson: Launch?[address] [address] XRay Report Signed Patient: Marlene Meadows MR#: [id number] : 1955 Acct:[id number] Age/Sex: 66 / F Date of Service: 08/08/21 Loc: ED Accession Number: [id number] ?? Procedure: XR chest 1V Ordering Provider: Rich Morris D.O. PROCEDURE:? XR CHEST 1V ? INDICATIONS:? Palpitations ? TECHNIQUE:? One view of the chest was acquired.? ? COMPARISON:? None. ? FINDINGS:? ? Surgical changes and devices:? None.? ? Lungs and pleura:? Lungs are clear.? No pleural effusions or pneumothorax.? ? Mediastinum:? Mediastinal contours appear normal.? Heart size is normal.? ? Bones and chest wall:? No suspicious bony lesions.? Overlying soft tissues appear unremarkable.? ? IMPRESSION:? No acute cardiopulmonary disease. ? ? Dictated by: Alberto Diaz M.D. on 08/09/2021 at 0:02 ? ? Approved by: Alberto Diaz M.D. on 08/09/2021 at 0:02? ECG Data Attestation: I personally reviewed and interpreted this ECG as follows: Prior ECG tracings: available for review Interpretation: Sinus rhythm Ventricular rate 94 Normal axis Normal QTC No ST T wave changes MDM Narrative Medical decision making narrative: Patient has had no ectopy here in the ER. Her EKG is unremarkable. Labs are unremarkable. She does have minor peripheral edema in bilateral lower extremities. Because of this will place her on a couple days of diuretics which she will start tomorrow. She already has an appointment scheduled with her primary doctor in 1 week from now. Discussed with her that she should talk to her primary doctor about having a Holter monitor. No further workup needed the emergency department. She was given return precautions. She expressed understanding and agreement. Discharge Plan Departure Patient Disposition: Home Clinical Impression: Palpitations Instructions: Edema Activity Restrictions/Additional Instructions: Continue all of your medications as directed. Take the diuretic as directed for the next couple days ago keep your appointment to artery have scheduled with your primary provider. I recommend you talk with your primary doctor about a Holter monitor. Return to the emergency department for any new or worsening symptoms Prescriptions: New furosemide [Lasix] 20 mg tablet 20 mg PO DAILY 5 Days 0RF furosemide [Lasix] 20 mg tablet 20 mg PO DAILY Qty: 5 0RF No Action metformin 500 mg tablet 1,000 mg PO SEEINSTR 0RF Label Comments: takes 1000 mg at 4:30 pm and 11:00 pm aspirin 81 mg tablet,delayed release (DR/EC) 81 mg PO DAILY 0RF lisinopril 40 mg tablet 40 mg PO DAILY 0RF atorvastatin 40 mg tablet 40 mg PO DAILY 0RF [facility] 50 mg-15 unit- 4.5 mg-2.5 mg tablet,chewable 2 tab PO DAILY 0RF diphenhydramine HCl [Benadryl] 25 mg capsule 25 mg PO BEDTIME 0RF multivitamin Tablet 1 tab PO DAILY 0RF cholecalciferol (vitamin D3) [Vitamin D3] 25 mcg (1,000 unit) Capsule 50 mcg PO DAILY 0RF Referrals: Olesya Sellers MD [Primary Care Provider] -
--- NOTE | 2021-08-08 23:28 | DI.RAD.S_ITS ---
PROCEDURE: XR CHEST 1V INDICATIONS: Palpitations TECHNIQUE: One view of the chest was acquired. COMPARISON: None. FINDINGS: Surgical changes and devices: None. Lungs and pleura: Lungs are clear. No pleural effusions or pneumothorax. Mediastinum: Mediastinal contours appear normal. Heart size is normal. Bones and chest wall: No suspicious bony lesions. Overlying soft tissues appear unremarkable. IMPRESSION: No acute cardiopulmonary disease. Dictated by: Alberto Diaz M.D. on 08/09/2021 at 0:02 Approved by: Alberto Diaz M.D. on 08/09/2021 at 0:02
[2021-08-08 23:30] VITALS: PULSE 83; RESP 20; O2SAT 100
[2021-08-08] MEDS: SODIUM CHLORIDE 0.9% 1,000 ML 500 ML IV (23:34)
[2021-08-08 23:41] LABS: Alanine Aminotransferase 37 IU/L (<35); Albumin 4.6 g/dL (3.5-5.0); Albumin Globulin Ratio 1.7 (1.0-2.8); Alkaline Phosphatase 109 U/L (38-126); Aspartate Aminotransferase 34 IU/L (14-36); Bilirubin Total 0.7 mg/dL (0.2-1.3); Blood Urea Nitrogen 11 mg/dL (7-17); Carbon Dioxide 29 mmol/L (22-32); Chloride 101 mmol/L (98-107); Estimated Glomerular Filt Rate > 60.0 mL/min (>60); Globulin 2.7 g/dL (1.7-4.1); Glucose 167 mg/dL (80-110); HEMOLYSIS 18 (0-50); Lipase 228 U/L (23-300); Magnesium 1.7 mg/dL (1.6-2.3); Phosphorous 3.6 mg/dL (2.8-4.1); Potassium 3.2 mmol/L (3.4-5.1); Sodium 135 mmol/L (137-145); Total Protein 7.3 g/dL (6.3-8.2)
[2021-08-08 23:43] LABS: Add Manual Diff / Slide Review NO; Basophils Absolute Auto 0 /uL (0-100); Basophils Percent Auto 0.3 % (0-2); Eosinophils Absolute Auto 200 /uL (0-450); Eosinophils Percent Auto 3.3 % (2-4); Hemoglobin 13.8 g/dL (12.0-16.0); Lymphocytes Absolute Auto 2100 /uL (1100-4500); Lymphocytes Percent Auto 37.8 % (25-40); Mean Corpuscular HGB Conc 35.4 % (30-36); Mean Corpuscular Hemoglobin 30.9 PG (26-34); Mean Corpuscular Volume 87.3 fL (80-100); Monocytes Absolute Auto 400 /uL (0-900); Monocytes Percent Auto 6.2 % (3-14); Neutrophils Absolute Auto 3000 /uL (1500-7000); Neutrophils Percent Auto 52.4 % (50-75); Platelet Count 223 X10^3/uL (150-400); Red Blood Cell Count 4.46 X10^6/uL (4.0-5.2); Red Cell Distribution Width 11.8 % (11.6-14.8); White Blood Cell Count 5.7 X10^3/uL (4.5-11.0)
[2021-08-08 23:53] VITALS: BP 176/77; PULSE 80; RESP 7; O2SAT 100
[2021-08-09] VITALS: PULSE 79; RESP 34; O2SAT 100
[2021-08-09 00:01] VITALS: BP 156/111; PULSE 80; RESP 32; O2SAT 100
[2021-08-09 00:09] LABS: NT-proBNP (BNP-Adult 18+) 144 pg/mL (<125)
[2021-08-09 00:32] LABS: Thyroid Stimulating Hormone 4.11 uIU/mL (0.47-4.68)
[2021-08-09 00:34] VITALS: O2SAT 99
[2021-08-09 00:35] VITALS: BP 177/72; PULSE 81; RESP 9; O2SAT 99
== END 2021-08-09 01:10 | disposition home or self-care (01) ==
PROVIDERS: Emergency Provider Emergency Medicine; PCP Student in an Organized Health Care Education/Training Program
DX: R00.2 Palpitations (principal)
CPT/HCPCS: 36415; 71045; 80053; 81003; 83690; 83735; 83880; 84100; 84443; 85025; 93005; 93010; 96360; 99284

== ENCOUNTER → 2021-09-21 09:54 | Outpatient (CLI) | payer MEDICARE, OTHER, SELFPAY ==
[2021-09-07 10:09] VITALS: BMI 24.7
[2021-09-21 11:41] LABS: COVID-19 CEPHEID PCR (VTM/NP) Negative (Negative)
== END ==
PROVIDERS: PCP Student in an Organized Health Care Education/Training Program; Visit Provider Family Medicine Sleep Medicine
DX: Z20.822 Contact with and (suspected) exposure to COVID-19 (principal)
CPT/HCPCS: C9803; U0003; U0005

== ENCOUNTER 2022-02-26 19:11 | Emergency (ER) | payer MEDICARE, OTHER, SELFPAY ==
[2021-09-07 10:09] VITALS: BMI 24.7
[2022-02-26] VITALS (10 sets, daily range): BP systolic 135–220; BP diastolic 60–90; PULSE 75–102; RESP 15–33; TEMP 36.9; O2SAT 97–100; BMI 23.2
--- NOTE | 2022-02-26 19:23 | DI.CT.S_ITS ---
PROCEDURE: CT HEAD/BRAIN WO CON INDICATIONS: altered TECHNIQUE: Noncontrast 4.5 mm thick angled axial sections acquired from the foramen magnum to the vertex, with coronal and sagittal reformats. For radiation dose reduction, the following was used: automated exposure control, adjustment of mA and/or kV according to patient size. COMPARISON: None. FINDINGS: Image quality: Excellent. CSF spaces: Basal cisterns are patent. No extra-axial fluid collections. The ventricles are symmetric in size and shape. Brain: No intracranial bleeds or masses. There is cerebral volume loss for age, with resultant ventricular and sulcal prominence. There are periventricular and deep white matter chronic small vessel ischemic changes. There is intracranial internal carotid artery atherosclerosis. Skull and face: Calvarium and visualized facial bones appear intact, without suspicious lesions. Sinuses: Visualized sinuses and mastoids are clear. IMPRESSION: 1. No acute intracranial process. 2. Minimal atrophy and chronic microvascular ischemic changes. Dictated by: Joellen Acosta M.D. on 02/26/2022 at 19:56 Approved by: Joellen Acosta M.D. on 02/26/2022 at 19:56
--- NOTE | 2022-02-26 19:23 | DI.RAD.S_ITS ---
PROCEDURE: XR CHEST 1V INDICATIONS: weakness TECHNIQUE: One view of the chest was acquired. COMPARISON: [facility], CR, XR CHEST 1V, 08/08/2021, 23:31. FINDINGS: Surgical changes and devices: None. Lungs and pleura: Lungs are clear. No pleural effusions or pneumothorax. Mediastinum: Mediastinal contours appear normal. Heart size is normal. Bones and chest wall: No suspicious bony lesions. Overlying soft tissues appear unremarkable. IMPRESSION: Normal for age, source of current weakness symptoms is not seen. Dictated by: Britton Lombardo M.D. on 02/26/2022 at 20:20 Approved by: Britton Lombardo M.D. on 02/26/2022 at 20:20
--- NOTE | 2022-02-26 19:30 | PC.NURSE ---
Pt spouse reports increasing confusion and memory loss for the past two weeks with a noticeable worsening in the last 3 days. Pt is able to correctly state name, and situation, but is incorrect with month thinking it's May. Pt is repetitive in her speech pattern and forgetful of some things.
--- NOTE | 2022-02-26 19:39 | ED.NEUROSD ---
HPI - Neuro Symptoms/Deficit General Chief Complaint: Neuro Symptoms/Deficit Stated Complaint: confused, memory loss Time Seen by Provider: 02/26/22 19:20 Source: patient and family Mode of arrival: Ambulatory History of Present Illness HPI Narrative: 58-year-old female nonsmoker with history of diabetes, hypertension and hyperlipidemia presents with her who states she is been acting abnormal for the past 2 weeks or so. He states that she is had a slow and rather progressive decline and that she has had memory issues and has been confused but is absent of any other obvious symptoms. She is had no complaint of headache or blurred vision or trouble with speech. She is had no trouble with ambulation or complaints of dizziness. She is had no fever or chills. She is had no chest pain, nausea, vomiting or diarrhea. She denies any dysuria, frequency or urgency. On Anticoagulants: No Related Data Home Medications Medication Instructions Recorded Confirmed aspirin 81 mg tablet,delayed 81 mg PO DAILY 08/02/19 02/15/21 release atorvastatin 40 mg tablet 40 mg PO DAILY 08/02/19 02/15/21 lisinopril 40 mg tablet 40 mg PO DAILY 08/02/19 02/15/21 metformin 500 mg tablet 1,000 mg PO SEEINSTR 08/02/19 02/15/21 vit C 50 mg-E 15 unit-zinc cit 4.5 2 tab PO DAILY 08/02/19 02/15/21 mg-lutein 2.5 mg-zeaxan chew tablet ([facility]) diphenhydramine HCl 25 mg capsule 25 mg PO BEDTIME 09/06/19 02/15/21 (Benadryl) cholecalciferol (vitamin D3) 25 50 mcg PO DAILY 12/30/19 02/15/21 mcg (1,000 unit) capsule (Vitamin D3) multivitamin 1 tab PO DAILY 12/30/19 02/15/21 Previous Rx's Medication Instructions Recorded furosemide 20 mg tablet (Lasix) 20 mg PO DAILY #5 tabs 08/09/21 amlodipine 5 mg tablet 5 mg PO DAILY #30 tabs 02/26/22 Allergies Allergy/AdvReac Type Severity Reaction Status Date / Time garlic AdvReac Intermediate acid reflux Verified 02/26/22 19:24 Influenza Virus Vaccines AdvReac Mild Verified 02/26/22 19:24 acetaminophen [From Tylenol] AdvReac Itching Verified 02/26/22 19:24 Review of Systems Review of Systems Narrative: GENERAL: Denies chills, fatigue, malaise, fever, sweats. HEENT: Denies sinus pain, ear pain, sore throat, difficulty swallowing, dizziness. RESPIRATORY: Denies dyspnea, cough, wheezing, hemoptysis, sputum. CARDIOVASCULAR: Denies chest pain, palpitations, orthopnea, edema, GASTROINTESTINAL: Denies nausea, vomiting, abdominal pain, diarrhea, constipation, melena. : Denies dysuria, frequency, incontinence, hematuria, urinary retention. MUSCULOSKELETAL: denies weakness, joint pain, or bony pain SKIN: Denies rash, skin lesions, or other NEUROLOGIC: Denies weakness, headache, numbness, change in speech, confusion, seizures, incoordination. PSYCHIATRIC: No concerning psychosocial issues. 12 point review of systems is negative except for those stated above Hematologic/Lymphatic On Anticoagulants: No Patient History Medical History Acid reflux Allergies (~1962) Anxiety (~2018) Asthma (~2019) Benign familial tremor (~1965) Bronchitis Chicken pox (~1962) H/O vaginal delivery Measles (~1963) Mumps (~1958) POP-Q stage 2 cystocele Vaginal vault prolapse after hysterectomy Wears dentures Surgical History Anesthesia H/O vaginal hysterectomy History of hernia repair (~1988) History of tonsillectomy (~1971) History of tubal ligation (~1978) Tumor (~1965) Family History Father Bone cancer History of heart disease Hypertension Mother History of heart disease Hypertension Stroke Brother History of heart disease Hypertension Sister History of heart disease Grandfather Suicide Social History household members: spouse Smoking Status: Never smoker alcohol intake: never Smoking Status: Never smoker alcohol intake frequency: 0-2 drinks per day Substance Use Type: does not use Exam Narrative Exam Narrative: GENERAL: [66] year old patient appears stated age. Well-developed patient, in mild distress. GCS 14, pleasantly confused HEAD: Atraumatic. Normocephalic. EYES: Pupils equal round and reactive. Extraocular motions intact. No scleral icterus. No injection or drainage. ENT: Nose without bleeding, purulent drainage. Throat without erythema, tonsillar hypertrophy or exudate. Airway patent. NECK: Trachea midline. Non tender CARDIOVASCULAR: Regular rate and rhythm without murmurs, gallops, or rubs. RESPIRATORY: Clear to auscultation. Breath sounds equal bilaterally. No wheezes, rales, or rhonchi. GASTROINTESTINAL: Abdomen soft, non-tender, nondistended. EXTREMITIES: No edema or joint tenderness. BACK: Nontender without deformity or crepitance. No flank tenderness. NEURO: AOx3. SKIN: No rash or erythema of visible areas Initial Vital Signs Initial Vital Signs: Vital Signs Temperature 98.5 F 02/26/22 19:24 Pulse Rate 98 H 02/26/22 19:24 Respiratory Rate 15 02/26/22 19:24 Blood Pressure 220/90 H 02/26/22 19:24 Pulse Oximetry 99 02/26/22 19:24 Oxygen Delivery Method 02/26/22 19:24 Course Orders Ordered: ED Orders 02/26/22 19:23 CT head/brain wo con Stat XR chest 1V Stat 02/26/22 19:30 Urinalysis and Microscopic Stat 02/26/22 19:43 VBG [Venous Blood Gas] Stat 02/26/22 19:48 A1C [Hemoglobin A1C% w Est Avg Glu] Stat Complete Blood Count AUTO DIFF Stat Comprehensive Metabolic Panel Stat Ketones (Beta-Hydroxybutyrate) Stat Lactate (Lactic Acid) Stat Magnesium Stat Troponin & CK Cardiac Panel Stat 02/26/22 20:04 COVID19 -Nasal RAPID/Pre-Proc Stat 02/26/22 20:15 Blood Culture Stat Discontinued Medications Sodium Chloride (Normal Saline 0.9%) 1,000 mls @ 1,000 mls/hr IV BOLUS ONE Stop: 02/26/22 20:19 Last Infusion: 02/26/22 21:24 Dose: 0 mls/hr Documented By: Admin: 02/26/22 19:59 Dose: 1,000 mls/hr Documented By: RAMIRO Vital Signs Vital signs: Vital Signs - 8 hr 02/26/22 20:00 02/26/22 20:00 02/26/22 20:30 Pulse Rate 88 Respiratory Rate 24 Blood Pressure 178/74 H 184/74 H Pulse Oximetry 98 Oxygen Delivery Method 02/26/22 20:30 02/26/22 20:45 02/26/22 20:45 Pulse Rate 79 80 Respiratory Rate 27 H 22 Blood Pressure 189/81 H Pulse Oximetry 97 100 Oxygen Delivery Method 02/26/22 21:58 02/26/22 21:00 02/26/22 21:01 Pulse Rate 77 81 80 Respiratory Rate Blood Pressure 135/72 Pulse Oximetry 97 99 98 Oxygen Delivery Method Room Air 02/26/22 21:01 02/26/22 21:30 02/26/22 21:30 Pulse Rate 75 Respiratory Rate 20 Blood Pressure 146/60 H 135/72 Pulse Oximetry 98 Oxygen Delivery Method MDM - Neuro Symptoms/Deficit Lab Data Result diagrams: 02/26/22 19:48 02/26/22 19:48 Labs: Lab Results 02/26/22 02/26/22 02/26/22 Range/Units 19:30 19:48 19:48 WBC 6.2 (4.5-11.0) X10^3/uL RBC 4.59 (4.0-5.2) X10^6/uL Hgb 14.3 (12.0-16.0) g/dL Hct 40.2 (36-46) % MCV 87.5 (80-100) fL MCH 31.2 (26-34) PG MCHC 35.7 (30-36) % RDW 12.6 (11.6-14.8) % Plt Count 297 (150-400) X10^3/uL Neut % (Auto) 69.0 (50-75) % Lymph % (Auto) 22.0 L (25-40) % [place] % (Auto) 6.4 (3-14) % Eos % (Auto) 2.0 (2-4) % Baso % (Auto) 0.6 (0-2) % Neut # (Auto) 4300 (9419-1312) /uL Lymph # (Auto) 1400 (9236-4729) /uL [place] # (Auto) 400 (0-900) /uL Eos # (Auto) 100 (0-450) /uL Baso # (Auto) 0 (0-100) /uL Sodium 133 L (137-145) mmol/L Potassium 3.8 (3.4-5.1) mmol/L Chloride 97 L (98-107) mmol/L Carbon Dioxide 28 (22-32) mmol/L BUN 11 (7-17) mg/dL Creatinine 0.59 (0.52-1.04) mg/dL Estimated GFR > 60 (>60) mL/min BUN/Creatinine Ratio 18.6 (6-22) Glucose 244 H (80-110) mg/dL Hemoglobin A1c (4.0-6.0) % Lactate (0.7-2.1) mmol/L Calcium 9.5 (8.4-10.2) mg/dL Magnesium (1.6-2.3) mg/dL Total Bilirubin 0.7 (0.2-1.3) mg/dL AST 34 (14-36) IU/L ALT 34 (<35) IU/L Alkaline Phosphatase 76 (38-126) U/L Total Creatine Kinase (30-135) U/L CK-MB (CK-2) CK-MB (CK-2) Rel Index Troponin I (0.01-0.034) ng/mL Total Protein 7.2 (6.3-8.2) g/dL Albumin 4.6 (3.5-5.0) g/dL Globulin 2.6 (1.7-4.1) g/dL Albumin/Globulin Ratio 1.8 (1.0-2.8) Urine Color Yellow Urine Appearance Clear Urine pH 6.5 (4.5-8.0) Ur Specific [place] 1.015 (1.000-1.035) Urine Protein Negative (Negative) Urine Glucose (UA) 1+ H (Negative) g/dL Urine Ketones Negative (NEGATIVE) Urine Occult Blood Negative (Negative) Urine Nitrate Negative (Negative) Urine Bilirubin Negative (NEGATIVE) Urine Urobilinogen 0.2 (0.2) E.U./dL Ur Leukocyte Esterase Trace H (NEGATIVE) Urine RBC None seen (0-5/HPF) Urine WBC 0-1/hpf (0-5/HPF) Ur Squamous Epith Cells 5-10 /hpf H (0-5/HPF) Ur Transition Epith Cell 1-5/hpf (0-5/HPF) Urine Bacteria None seen (None) Ur Culture Indicated? Cult not indicated Ketones (<0.27) mmol/L SARS-CoV-2 (PCR) (Negative) 02/26/22 02/26/22 02/26/22 Range/Units 19:48 19:48 19:48 WBC (4.5-11.0) X10^3/uL RBC (4.0-5.2) X10^6/uL Hgb (12.0-16.0) g/dL Hct (36-46) % MCV (80-100) fL MCH (26-34) PG MCHC (30-36) % RDW (11.6-14.8) % Plt Count (150-400) X10^3/uL Neut % (Auto) (50-75) % Lymph % (Auto) (25-40) % [place] % (Auto) (3-14) % Eos % (Auto) (2-4) % Baso % (Auto) (0-2) % Neut # (Auto) (6654-3987) /uL Lymph # (Auto) (8978-7579) /uL [place] # (Auto) (0-900) /uL Eos # (Auto) (0-450) /uL Baso # (Auto) (0-100) /uL Sodium (137-145) mmol/L Potassium (3.4-5.1) mmol/L Chloride (98-107) mmol/L Carbon Dioxide (22-32) mmol/L BUN (7-17) mg/dL Creatinine (0.52-1.04) mg/dL Estimated GFR (>60) mL/min BUN/Creatinine Ratio (6-22) Glucose (80-110) mg/dL Hemoglobin A1c 5.4 (4.0-6.0) % Lactate 1.9 (0.7-2.1) mmol/L Calcium (8.4-10.2) mg/dL Magnesium 1.7 (1.6-2.3) mg/dL Total Bilirubin (0.2-1.3) mg/dL AST (14-36) IU/L ALT (<35) IU/L Alkaline Phosphatase (38-126) U/L Total Creatine Kinase 65 (30-135) U/L CK-MB (CK-2) TNP CK-MB (CK-2) Rel Index TNP Troponin I < 0.012 (0.01-0.034) ng/mL Total Protein (6.3-8.2) g/dL Albumin (3.5-5.0) g/dL Globulin (1.7-4.1) g/dL Albumin/Globulin Ratio (1.0-2.8) Urine Color Urine Appearance Urine pH (4.5-8.0) Ur Specific [place] (1.000-1.035) Urine Protein (Negative) Urine Glucose (UA) (Negative) g/dL Urine Ketones (NEGATIVE) Urine Occult Blood (Negative) Urine Nitrate (Negative) Urine Bilirubin (NEGATIVE) Urine Urobilinogen (0.2) E.U./dL Ur Leukocyte Esterase (NEGATIVE) Urine RBC (0-5/HPF) Urine WBC (0-5/HPF) Ur Squamous Epith Cells (0-5/HPF) Ur Transition Epith Cell (0-5/HPF) Urine Bacteria (None) Ur Culture Indicated? Ketones (<0.27) mmol/L SARS-CoV-2 (PCR) (Negative) 02/26/22 02/26/22 Range/Units 19:48 20:04 WBC (4.5-11.0) X10^3/uL RBC (4.0-5.2) X10^6/uL Hgb (12.0-16.0) g/dL Hct (36-46) % MCV (80-100) fL MCH (26-34) PG MCHC (30-36) % RDW (11.6-14.8) % Plt Count (150-400) X10^3/uL Neut % (Auto) (50-75) % Lymph % (Auto) (25-40) % [place] % (Auto) (3-14) % Eos % (Auto) (2-4) % Baso % (Auto) (0-2) % Neut # (Auto) (6588-1498) /uL Lymph # (Auto) (5002-0007) /uL [place] # (Auto) (0-900) /uL Eos # (Auto) (0-450) /uL Baso # (Auto) (0-100) /uL Sodium (137-145) mmol/L Potassium (3.4-5.1) mmol/L Chloride (98-107) mmol/L Carbon Dioxide (22-32) mmol/L BUN (7-17) mg/dL Creatinine (0.52-1.04) mg/dL Estimated GFR (>60) mL/min BUN/Creatinine Ratio (6-22) Glucose (80-110) mg/dL Hemoglobin A1c (4.0-6.0) % Lactate (0.7-2.1) mmol/L Calcium (8.4-10.2) mg/dL Magnesium (1.6-2.3) mg/dL Total Bilirubin (0.2-1.3) mg/dL AST (14-36) IU/L ALT (<35) IU/L Alkaline Phosphatase (38-126) U/L Total Creatine Kinase (30-135) U/L CK-MB (CK-2) CK-MB (CK-2) Rel Index Troponin I (0.01-0.034) ng/mL Total Protein (6.3-8.2) g/dL Albumin (3.5-5.0) g/dL Globulin (1.7-4.1) g/dL Albumin/Globulin Ratio (1.0-2.8) Urine Color Urine Appearance Urine pH (4.5-8.0) Ur Specific [place] (1.000-1.035) Urine Protein (Negative) Urine Glucose (UA) (Negative) g/dL Urine Ketones (NEGATIVE) Urine Occult Blood (Negative) Urine Nitrate (Negative) Urine Bilirubin (NEGATIVE) Urine Urobilinogen (0.2) E.U./dL Ur Leukocyte Esterase (NEGATIVE) Urine RBC (0-5/HPF) Urine WBC (0-5/HPF) Ur Squamous Epith Cells (0-5/HPF) Ur Transition Epith Cell (0-5/HPF) Urine Bacteria (None) Ur Culture Indicated? Ketones 0.14 (<0.27) mmol/L SARS-CoV-2 (PCR) Negative (Negative) Urine Dip Bedside Urine Glucose 500 mg/dl Bedside Urine Bilirubin - Negative Bedside Urine Ketone - Negative Urine Specific [place] 1.020 Bedside Urine Occult Blood - Negative Bedside Urine pH 6.0 Bedside Urine Protein - Negative Bedside Urine Urobilinogen - Negative Bedside Urine Nitrite - Negative Bedside Urine Leukocytes - Negative Esterase Imaging Data CT scan - head: Radiologist's Impression: Marlene Meadows??66??F??1955 ? Allergy/Adv: garlic, Influenza Virus Vaccines, acetaminophen (More??) Close Head CT (Signed) Joellen Acosta - 02/26/22 Chest X-Ray (Signed) Britton Lombardo - 02/26/22 Chest X-Ray (Signed) Frieda Diaz - 08/08/21 Outside EKG 08/28/19 Launch?[address] [address] [address] Scan Report Signed Patient: Marlene Meadows MR#: [id number] : 1955 Acct:[id number] Age/Sex: 66 / F Date of Service: 02/26/22 Loc: ED Accession Number: [id number] ?? Procedure: CT head/brain wo con Ordering Provider: Madi Spicer D.O. PROCEDURE:? CT HEAD/BRAIN WO CON ? INDICATIONS:? altered ? TECHNIQUE:? Noncontrast 4.5 mm thick angled axial sections acquired from the foramen magnum to the vertex, with coronal and sagittal reformats.? For radiation dose reduction, the following was used:? automated exposure control, adjustment of mA and/or kV according to patient size.? ? COMPARISON:? None. ? FINDINGS:? Image quality:? Excellent.? ? CSF spaces:? Basal cisterns are patent.? No extra-axial fluid collections.? The ventricles are symmetric in size and shape.? ? Brain:? No intracranial bleeds or masses.? There is cerebral volume loss for age, with resultant ventricular and sulcal prominence.? There are periventricular and deep white matter chronic small vessel ischemic changes.? There is intracranial internal carotid artery atherosclerosis.? ? Skull and face:? Calvarium and visualized facial bones appear intact, without suspicious lesions.? ? Sinuses:? Visualized sinuses and mastoids are clear.? ? IMPRESSION:? ? 1. No acute intracranial process. ? 2. Minimal atrophy and chronic microvascular ischemic changes. ? ? ? Dictated by: Joellen Acosta M.D. on 02/26/2022 at 19:56 ? ? Approved by: Joellen Acosta M.D. on 02/26/2022 at 19:56? Chest x-ray: Radiologist's Impression: Close Chest X-Ray (Signed) Britton Lombardo - 02/26/[address] (Signed) Jeollen Acosta - 02/26/22 Launch?[address] [address] XRay Report Signed Patient: Marlene Meadows MR#: [id number] : 1955 Acct:[id number] Age/Sex: 66 / F Date of Service: 02/26/22 Loc: ED Accession Number: [id number] ?? Procedure: XR chest 1V Ordering Provider: Madi Spicer D.O. PROCEDURE:? XR CHEST 1V ? INDICATIONS:? weakness ? TECHNIQUE:? One view of the chest was acquired.? ? COMPARISON:? [facility], , XR CHEST 1V, 08/08/2021, 23:31. ? FINDINGS:? ? Surgical changes and devices:? None.? ? Lungs and pleura:? Lungs are clear.? No pleural effusions or pneumothorax.? ? Mediastinum:? Mediastinal contours appear normal.? Heart size is normal.? ? Bones and chest wall:? No suspicious bony lesions.? Overlying soft tissues appear unremarkable.? ? IMPRESSION:? Normal for age, source of current weakness symptoms is not seen. ? ? Dictated by: Britton Lombardo M.D. on 02/26/2022 at 20:20 ? ? Approved by: Britton Lombardo M.D. on 02/26/2022 at 20:20 ? MDM Narrative Medical decision making narrative: 58-year-old female with progressive memory loss as the only complaint has a very reassuring physical exam, labs and imaging. There is no evidence of any stroke, electrolyte abnormality or infection that would require specific or immediate intervention. There is no obvious evidence of a reversible cause. Extensive return precautions discussed with , he seemed to be in agreement with the diagnosis and plan. Questions have been answered to his apparent satisfaction Discharge Plan Departure Patient Disposition: Home Clinical Impression: Memory changes Instructions: Keep Your Memory Sharp Activity Restrictions/Additional Instructions: *You have been diagnosed with [memory loss ] *What to do: *Please continue to take your regular medications as directed. [ x] New medication prescriptions sent to your pharmacy: [Amlodipine ] [ ] New medication written as a paper prescription [ ] No new medications given *Please follow up with your primary care provider in 2-3 days, call for an appointment. Let them know you were seen in the Emergency Department and that we ask that you be seen in follow up. We will electronically transmit a record of today's note if your PCP is in our system *If you do not have a primary care provider please contact the [facility] Resource line at [phone]. They will ask some questions about your medical history and help get you set up with a doctor in the community. *Return to Emergency Department if you should have any new, worsening or concerning symptoms, such as [fever greater than 101 F, shaking chills, worsening pain, persistent vomiting or other bothersome symptoms] Prescriptions: New amlodipine 5 mg tablet 5 mg PO DAILY Qty: 30 0RF No Action metformin 500 mg tablet 1,000 mg PO SEEINSTR Label Comments: takes 1000 mg at 4:30 pm and 11:00 pm aspirin 81 mg tablet,delayed release (DR/EC) 81 mg PO DAILY lisinopril 40 mg tablet 40 mg PO DAILY atorvastatin 40 mg tablet 40 mg PO DAILY O[facility] 50 mg-15 unit- 4.5 mg-2.5 mg tablet,chewable 2 tab PO DAILY diphenhydramine HCl [Benadryl] 25 mg capsule 25 mg PO BEDTIME multivitamin Tablet 1 tab PO DAILY cholecalciferol (vitamin D3) [Vitamin D3] 25 mcg (1,000 unit) Capsule 50 mcg PO DAILY furosemide [Lasix] 20 mg tablet 20 mg PO DAILY Qty: 5 0RF Referrals: Olesya Sellers MD [Primary Care Provider] - Visit Report Forms: Patient Portal/API
[2022-02-26 19:49] LABS: Appearance Urine UA CLEAR; Bilirubin Urine UA NEGATIVE (NEGATIVE); Color Urine UA YELLOW; Glucose Urine UA 1+ g/dL (Negative); Ketones Urine UA NEGATIVE (NEGATIVE); Leukocyte Esterase Urine UA TRACE (NEGATIVE); Nitrite Urine UA NEGATIVE (Negative); Occult Blood Urine UA NEGATIVE (Negative); Protein Urine UA NEGATIVE (Negative); Specific Gravity Urine UA 1.015 (1.000-1.035); Urobilinogen Urine UA 0.2 E.U./dL (0.2)
[2022-02-26 19:51] LABS: pH Urine UA 6.5 (4.5-8.0)
[2022-02-26 19:56] LABS: Add Manual Diff / Slide Review NO; Basophils Absolute Auto 0 /uL (0-100); Basophils Percent Auto 0.6 % (0-2); Eosinophils Absolute Auto 100 /uL (0-450); Hematocrit 40.2 % (36-46); Hemoglobin 14.3 g/dL (12.0-16.0); Lymphocytes Absolute Auto 1400 /uL (1100-4500); Mean Corpuscular HGB Conc 35.7 % (30-36); Mean Corpuscular Hemoglobin 31.2 PG (26-34); Mean Corpuscular Volume 87.5 fL (80-100); Monocytes Absolute Auto 400 /uL (0-900); Monocytes Percent Auto 6.4 % (3-14); Neutrophils Absolute Auto 4300 /uL (1500-7000); Platelet Count 297 X10^3/uL (150-400); Red Blood Cell Count 4.59 X10^6/uL (4.0-5.2); Red Cell Distribution Width 12.6 % (11.6-14.8); White Blood Cell Count 6.2 X10^3/uL (4.5-11.0)
[2022-02-26] MEDS: SODIUM CHLORIDE 0.9% 1,000 ML 1000 ML IV (19:59)
[2022-02-26 20:11] LABS: Hemoglobin A1C% w Est Avg Glu 5.4 % (4.0-6.0)
[2022-02-26 20:15] LABS: Alanine Aminotransferase 34 IU/L (<35); Albumin 4.6 g/dL (3.5-5.0); Albumin Globulin Ratio 1.8 (1.0-2.8); Alkaline Phosphatase 76 U/L (38-126); Aspartate Aminotransferase 34 IU/L (14-36); BUN Creatinine Ratio 18.6 (6-22); Bilirubin Total 0.7 mg/dL (0.2-1.3); Blood Urea Nitrogen 11 mg/dL (7-17); Calcium 9.5 mg/dL (8.4-10.2); Carbon Dioxide 28 mmol/L (22-32); Chloride 97 mmol/L (98-107); Estimated Glomerular Filt Rate > 60 mL/min (>60); Globulin 2.6 g/dL (1.7-4.1); Glucose 244 mg/dL (80-110); HEMOLYSIS < 15 (0-50); Potassium 3.8 mmol/L (3.4-5.1); Sodium 133 mmol/L (137-145); Total Protein 7.2 g/dL (6.3-8.2)
[2022-02-26 20:16] LABS: Ketones (Beta-Hydroxybutyrate) 0.14 mmol/L (<0.27)
[2022-02-26 20:17] LABS: Lactate (Lactic Acid) 1.9 mmol/L (0.7-2.1)
[2022-02-26 20:22] LABS: RBC Urine None Seen (0-5/HPF)
[2022-02-26 20:23] LABS: Creatine Kinase 65 U/L (30-135); Magnesium 1.7 mg/dL (1.6-2.3)
[2022-02-26 20:23] LABS: Bacteria Urine None Seen; Culture Indicated Urine Cult Not Indicated; Squamous Epithelial Cell Urine 5-10 /HPF (0-5/HPF); Transitional Epi Cells Urine 1-5/HPF (0-5/HPF); WBC Urine 0-1/HPF (0-5/HPF)
[2022-02-26 20:36] LABS: Troponin I < 0.012 ng/mL (0.01-0.034)
[2022-02-26 22:12] LABS: COVID19 -Nasal RAPID Negative (Negative)
== END 2022-02-26 21:49 | disposition home or self-care (01) ==
PROVIDERS: Emergency Provider Emergency Medicine; PCP Student in an Organized Health Care Education/Training Program
DX: R41.3 Other amnesia (principal); R53.1 Weakness; Z20.822 Contact with and (suspected) exposure to COVID-19
CPT/HCPCS: 36415; 70450; 71045; 80053; 81001; 81003; 82009; 82550; 83036; 83605; 83735; 84484; 85025; 87040; 87635; 96360; 99284; C9803

== ENCOUNTER 2022-08-26 20:09 | Inpatient (IN) | payer MEDICARE, OTHER, SELFPAY ==
[2021-09-07 10:09] VITALS: BMI 24.7
[2022-08-26] VITALS (9 sets, daily range): BP systolic 162–196; BP diastolic 75–108; PULSE 75–113; RESP 16–26; TEMP 35.9–36.9; O2SAT 98–100; BMI 23.2; BMI 21.9
--- NOTE | 2022-08-26 20:18 | DI.RAD.S_ITS ---
PROCEDURE: XR CHEST 1V INDICATIONS: Possible stroke TECHNIQUE: One view of the chest was acquired. COMPARISON: [facility], CR, XR CHEST 1V, 02/26/2022, 19:30. FINDINGS: Surgical changes and devices: None. Lungs and pleura: Lungs are clear. No pleural effusions or pneumothorax. Mediastinum: Mediastinal contours appear normal. Heart size is normal. Bones and chest wall: No suspicious bony lesions. Overlying soft tissues appear unremarkable. IMPRESSION: 1. No acute cardiopulmonary disease. Dictated by: Lobito Merlos M.D. on 08/26/2022 at 21:11 Approved by: Lobito Merlos M.D. on 08/26/2022 at 21:12
--- NOTE | 2022-08-26 20:18 | DI.CT.S_ITS ---
PROCEDURE: CT STROKE INDICATIONS: Positive BE-FAST, Stroke symptoms TECHNIQUE: Noncontrast 4.5 mm thick angled axial sections acquired from the foramen magnum to the vertex, with coronal reformats. For radiation dose reduction, the following was used: automated exposure control, adjustment of mA and/or kV according to patient size. COMPARISON: None. FINDINGS: Image quality: Excellent. CSF spaces: Basal cisterns are patent. No extra-axial fluid collections. There is mild cerebral volume loss, with resultant ventricular and sulcal prominence. Brain: No intracranial hemorrhage, mass, or mass effect. There are subcortical, periventricular and deep white matter hypodensities consistent with mild chronic small vessel ischemic changes. The plaza-white matter junction appears preserved. There is intracranial internal carotid artery atherosclerosis. Skull and face: Calvarium and visualized facial bones appear intact, without suspicious lesions. Sinuses: Visualized sinuses and mastoids are clear. IMPRESSION: 1. No acute intracranial abnormality. Specifically, no intracranial hemorrhage or other imaging contraindications to tPA. 2. Mild chronic white matter small vessel ischemic changes and cerebral volume loss. Findings discussed with Dr. Spicer on 08/26/2022 at 8:39 p.m.. This study fulfills neurological imaging criteria for inclusion or exclusion of acute stroke therapies based on available published neurological guidelines. Dictated by: Lobito Merlos M.D. on 08/26/2022 at 20:38 Approved by: Lobito Merlos M.D. on 08/26/2022 at 20:41
--- NOTE | 2022-08-26 20:38 | DI.CT.S_ITS ---
PROCEDURE: CT ANGIO HEAD AND NECK INDICATIONS: stroke TECHNIQUE: After the administration of intravenous contrast, 1 mm thick sections acquired from the aortic arch through the [place] of [place]. Post-contrast 4.5 mm thick sections then re-acquired from the foramen magnum to the vertex. 3-dimensional gpoxvhv-twqsobfam-fprhwonkcg (MIP) and/or volume rendering reformats were acquired of the central intracranial vasculature and neck separately. For radiation dose reduction, the following was used: automated exposure control, adjustment of mA and/or kV according to patient size. COMPARISON: [facility], CT, CT HEAD WITHOUT CONTRAST, 03/01/2022, 20:00. [facility], MR, MR BRAIN WITH/WITHOUT CONTRAST, 03/02/2022, 7:17. [facility], CT, CT STROKE, 08/26/2022, 20:19. FINDINGS: Image quality: There is mild motion artifact. BRAIN: CSF spaces: Basal cisterns are patent. No extra-axial fluid collections. Ventricles are normal in size and shape. Brain: No intracranial hemorrhage, mass, or mass effect. Carrillo-white matter interface appears preserved. No abnormal intracranial enhancement. Skull and face: Calvarium and facial bones appear intact, without suspicious lesions. Orbits appear normal. Sinuses: Sinuses and mastoids are clear. HEAD CT ANGIOGRAPHY: Anterior circulation: Intracranial internal carotid arteries are normal in size and appear patent bilaterally. There is mild atherosclerotic calcification along the cavernous segments of the internal carotid arteries with associated multifocal fuuf-ri-kpvwjzkz narrowing. The paired anterior cerebral arteries appear patent bilaterally. There is an absent A1 segment of the left anterior cerebral artery likely representing an anatomic variant. The anterior communicating artery also appears patent. The middle cerebral arteries appear patent bilaterally. No high-grade stenosis, occlusion, or filling defects. No cerebral aneurysms identified. Posterior circulation: Visualized portions of the vertebral arteries appear patent with calcified plaque in the distal vertebral arteries associated with focal moderate narrowing on the left and mild narrowing on the right. These join to form a patent basilar artery. There is mild focal narrowing within the distal basilar artery. The posterior cerebral arteries appears patent bilaterally a with luminal irregularity compatible with mild multifocal narrowing. No definite high-grade stenosis, occlusion, or filling defects. No cerebral aneurysms identified. NECK CT ANGIOGRAPHY: Carotid system: The great vessels demonstrate a conventional anatomy as they arise from the aortic arch. The origins of the common carotid arteries appear patent. The common carotid arteries demonstrate normal caliber and courses. There is calcified plaque within the bilateral carotid bulbs with narrowing of up to approximately 50% on the right and less than 50% on the left. The internal carotid arteries demonstrate normal calibers and courses. Posterior circulation: The origins of the vertebral arteries both appear patent. There is multifocal mqnj-uc-vrhkxsti narrowing along the course of the right vertebral artery. As noted above, there is calcified plaque with mild narrowing in the distal right vertebral artery. On the left, there is moderate focal narrowing in the distal left vertebral artery. Soft tissues: Visualized neck soft tissues demonstrate no suspicious abnormalities. Bones: No suspicious bony lesions. Visualized cervical spine demonstrates straightening of the cervical lordosis. There is multilevel degenerative disc disease and facet joint arthropathy. IMPRESSION: 1. No definite high-grade stenosis or occlusion of the central intracranial arteries. 2. Absent A1 segment of the left anterior cerebral artery likely represents an anatomic variant. 3. Mild to moderate multifocal narrowing within the cavernous segments of the internal carotid arteries bilaterally. 4. Mild focal narrowing in the distal basilar artery and mild multifocal narrowing in the posterior cerebral arteries. 5. Mild to moderate multifocal narrowing along course of the right vertebral artery. 6. Focal moderate narrowing in the distal left vertebral artery. 7. Bilateral calcified plaque in the carotid bulbs with narrowing of up to approximately 50% on the right and less than 50% on the left. Any quantitative measurements of stenosis were performed using NASCET criteria. Dictated by: Lobito Merlos M.D. on 08/26/2022 at 21:13 Approved by: Lobito Merlos M.D. on 08/26/2022 at 21:23
[2022-08-26 20:48] LABS: Add Manual Diff / Slide Review NO; Basophils Absolute Auto 100 /uL (0-100); Eosinophils Absolute Auto 100 /uL (0-450); Hematocrit 39.9 % (36-46); Hemoglobin 14.3 g/dL (12.0-16.0); Lymphocytes Absolute Auto 1600 /uL (1100-4500); Lymphocytes Percent Auto 16.5 % (25-40); Mean Corpuscular HGB Conc 35.8 % (30-36); Mean Corpuscular Hemoglobin 31.5 PG (26-34); Mean Corpuscular Volume 88.1 fL (80-100); Monocytes Absolute Auto 600 /uL (0-900); Monocytes Percent Auto 6.5 % (3-14); Neutrophils Absolute Auto 7000 /uL (1500-7000); Platelet Count 374 X10^3/uL (150-400); Red Blood Cell Count 4.53 X10^6/uL (4.0-5.2); Red Cell Distribution Width 12.5 % (11.6-14.8); White Blood Cell Count 9.4 X10^3/uL (4.5-11.0)
[2022-08-26 20:55] LABS: INR 1.2 (0.9-1.3); Prothrombin Time 14.3 SECONDS (10.1-12.7)
[2022-08-26 20:57] LABS: PTT Partial Thromboplastin Tim 28 SECONDS (26-36)
[2022-08-26 21:01] LABS: Alanine Aminotransferase 40 IU/L (<35); Albumin 4.2 g/dL (3.5-5.0); Albumin Globulin Ratio 1.6 (1.0-2.8); Alkaline Phosphatase 115 U/L (38-126); Aspartate Aminotransferase 38 IU/L (14-36); BUN Creatinine Ratio 29.6 (6-22); Bilirubin Total 0.6 mg/dL (0.2-1.3); Blood Urea Nitrogen 16 mg/dL (7-17); Calcium 9.6 mg/dL (8.4-10.2); Carbon Dioxide 23 mmol/L (22-32); Chloride 99 mmol/L (98-107); Creatine Kinase 34 U/L (30-135); Estimated Glomerular Filt Rate > 60 mL/min (>60); Globulin 2.6 g/dL (1.7-4.1); Glucose 222 mg/dL (80-110); HEMOLYSIS < 15 (0-50); Magnesium 1.4 mg/dL (1.6-2.3); Potassium 3.9 mmol/L (3.4-5.1); Sodium 132 mmol/L (137-145); Total Protein 6.8 g/dL (6.3-8.2)
[2022-08-26 21:12] LABS: Troponin I < 0.012 ng/mL (0.01-0.034)
--- NOTE | 2022-08-26 22:02 | ED_ITS ---
HPI - Neuro Symptoms/Deficit General Chief Complaint: Neuro Symptoms/Deficit Stated Complaint: Slurred speech, Stroke symptoms Time Seen by Provider: 08/26/22 20:38 Source: patient Mode of arrival: Ambulatory History of Present Illness HPI Narrative: 67-year-old female nonsmoker with history of hypertension, hyperlipidemia that presents with her in the chief complaint of stroke-like symptoms upon waking this morning. She had gone to sleep in her normal state of health last night and upon waking this morning at 9 or 10 she was slurring words and having some difficulty choosing words. She denies any had pain or blurred vision. She denies any difficulty with ambulation nor numbness, tingling or weakness of her extremities. She is had no fever or chills. She took a bit of a nap this afternoon and they hope that her slurring was just because she was tired and upon waking it seems that it was slightly worse. On Anticoagulants: No Related Data Home Medications Medication Instructions Recorded Confirmed aspirin 81 mg tablet,delayed 81 mg PO DAILY 08/02/19 08/26/22 release atorvastatin 40 mg tablet 40 mg PO DAILY 08/02/19 08/26/22 lisinopril 40 mg tablet 40 mg PO DAILY 08/02/19 08/26/22 metformin 500 mg tablet 1,000 mg PO BID 08/02/19 08/26/22 cholecalciferol (vitamin D3) 25 50 mcg PO DAILY 12/30/19 08/26/22 mcg (1,000 unit) capsule (Vitamin D3) multivitamin 1 tab PO DAILY 12/30/19 08/26/22 Allergies Allergy/AdvReac Type Severity Reaction Status Date / Time garlic AdvReac Intermediate acid reflux Verified 02/26/22 19:24 Influenza Virus Vaccines AdvReac Mild Verified 02/26/22 19:24 acetaminophen [From Tylenol] AdvReac Itching Verified 02/26/22 19:24 Review of Systems Hematologic/Lymphatic On Anticoagulants: No Patient History Medical History Acid reflux Allergies (~1962) Anxiety (~2018) Asthma (~2019) Benign familial tremor (~1964) Bronchitis Chicken pox (~1962) H/O vaginal delivery Measles (~1963) Mumps (~1958) POP-Q stage 2 cystocele Vaginal vault prolapse after hysterectomy Wears dentures Surgical History Anesthesia H/O vaginal hysterectomy History of hernia repair (~1988) History of tonsillectomy (~1971) History of tubal ligation (~1978) Tumor (~1965) Family History Father Bone cancer History of heart disease Hypertension Mother History of heart disease Hypertension Stroke Brother History of heart disease Hypertension Sister History of heart disease Grandfather Suicide Social History household members: spouse Smoking Status: Never smoker alcohol intake: never Smoking Status: Never smoker alcohol intake frequency: 0-2 drinks per day Substance Use Type: does not use Exam Initial Vital Signs Initial Vital Signs: Vital Signs Temperature 98.4 F 08/26/22 20:15 Pulse Rate 113 H 08/26/22 20:15 Respiratory Rate 18 08/26/22 20:15 Blood Pressure 188/108 H 08/26/22 20:15 Pulse Oximetry 100 08/26/22 20:15 Oxygen Delivery Method Room Air 08/26/22 20:15 Course Orders Ordered: ED Orders 08/26/22 22:30 Urine Drug Screen, Rapid Stat Aspirin (Aspirin 325 Mg Tablet) 325 mg PO DAILY FREDDY Atorvastatin Calcium (Atorvastatin 20 Mg Tablet) 40 mg PO DAILY FREDDY Dextrose (Dextrose 50 % In Water 25 Gm/50 Ml Syringe) 25 gm IV PRN PRN; Protoc ol PRN Reason: Hypoglycemia Insulin Human Lispro (Insulin Lispro 100 Unit/Ml 3ml Vial) 0 unit SUBCUT ACHS [facility]; Protocol Last Admin: 08/27/22 00:32 Dose: 2 unit Documented By: RICH Co-signed By: CS Lisinopril (Lisinopril 20 Mg Tablet) 40 mg PO DAILY FREDDY Lorazepam (Lorazepam 2 Mg/Ml Inj) 0.5 mg IV Q6HR PRN PRN Reason: Anxiety Ondansetron HCl (Ondansetron 4 Mg/2 Ml Inj) 4 mg IV NOW PRN PRN Reason: Nausea And Vomiting Ondansetron HCl (Ondansetron 4 Mg/2 Ml Inj) 4 mg IV Q6HR PRN PRN Reason: Nausea And Vomiting Ondansetron HCl (Ondansetron 4 Mg Odt) 4 mg SL Q6HR PRN PRN Reason: Nausea Discontinued Medications Aspirin (Aspirin 81 Mg Chew Tab) 324 mg PO NOW ONE Stop: 08/26/22 22:25 Last Admin: 08/26/22 22:46 Dose: 324 mg Documented By: GC Atorvastatin Calcium (Atorvastatin 20 Mg Tablet) 40 mg PO BEDTIME FREDDY Last Admin: 08/27/22 00:22 Dose: Not Given Documented By: RICH Insulin Human Lispro (Insulin Lispro 100 Unit/Ml 3ml Vial) 0 unit SUBCUT ACHS [facility]; Protocol Magnesium Oxide (Magnesium Oxide 400 Mg Tablet) 400 mg PO NOW ONE Stop: 08/26/22 22:29 Last Admin: 08/26/22 22:47 Dose: 400 mg Documented By: ASHLY Ondansetron HCl (Ondansetron 4 Mg Odt) 4 mg SL NOW PRN PRN Reason: Nausea And Vomiting Vital Signs Vital signs: Vital Signs - 8 hr 08/26/22 20:15 Temperature 98.4 F Pulse Rate 113 H Respiratory Rate 18 Blood Pressure 188/108 H Pulse Oximetry 100 Oxygen Delivery Method Room Air MDM - Neuro Symptoms/Deficit Lab Data 08/27/22 06:38 08/27/22 06:38 Labs: Lab Results 08/26/22 08/26/22 08/26/22 Range/Units 20:40 20:40 20:40 WBC 9.4 (4.5-11.0) X10^3/uL RBC 4.53 (4.0-5.2) X10^6/uL Hgb 14.3 (12.0-16.0) g/dL Hct 39.9 (36-46) % MCV 88.1 (80-100) fL MCH 31.5 (26-34) PG MCHC 35.8 (30-36) % RDW 12.5 (11.6-14.8) % Plt Count 374 (150-400) X10^3/uL Neut % (Auto) 75.0 (50-75) % Lymph % (Auto) 16.5 L (25-40) % [place] % (Auto) 6.5 (3-14) % Eos % (Auto) 1.0 L (2-4) % Baso % (Auto) 1.0 (0-2) % Neut # (Auto) 7000 (5849-3651) /uL Lymph # (Auto) 1600 (4995-7694) /uL [place] # (Auto) 600 (0-900) /uL Eos # (Auto) 100 (0-450) /uL Baso # (Auto) 100 (0-100) /uL PT 14.3 H (10.1-12.7) SECONDS INR 1.2 (0.9-1.3) APTT 28 (26-36) SECONDS Sodium 132 L (137-145) mmol/L Potassium 3.9 (3.4-5.1) mmol/L Chloride 99 (98-107) mmol/L Carbon Dioxide 23 (22-32) mmol/L BUN 16 (7-17) mg/dL Creatinine 0.54 (0.52-1.04) mg/dL Estimated GFR > 60 (>60) mL/min BUN/Creatinine Ratio 29.6 H (6-22) Glucose 222 H (80-110) mg/dL Calcium 9.6 (8.4-10.2) mg/dL Magnesium 1.4 L (1.6-2.3) mg/dL Total Bilirubin 0.6 (0.2-1.3) mg/dL AST 38 H (14-36) IU/L ALT 40 H (<35) IU/L Alkaline Phosphatase 115 (38-126) U/L Total Creatine Kinase 34 (30-135) U/L CK-MB (CK-2) TNP CK-MB (CK-2) Rel Index TNP Troponin I < 0.012 (0.01-0.034) ng/mL Total Protein 6.8 (6.3-8.2) g/dL Albumin 4.2 (3.5-5.0) g/dL Globulin 2.6 (1.7-4.1) g/dL Albumin/Globulin Ratio 1.6 (1.0-2.8) U Opiates 300ng/mL cut (Negative) Ur Oxycodone Screen (Negative) Urine Methadone Screen (Negative) Ur Barbiturates Screen (Negative) U Tricyclic Antidepress (Negative) Ur Phencyclidine Scrn (Negative) Ur Amphetamines Screen (Negative) U Methamphetamines Scrn (Negative) Ur MDMA Scrn (Ecstasy) (Negative) U Benzodiazepines Scrn (Negative) Urine Cocaine Screen (Negative) U Marijuana (THC) Screen (Negative) Ethyl Alcohol ( - 10) mg/dL 03/03/23 03/03/23 Range/Units 20:40 22:30 WBC (4.5-11.0) X10^3/uL RBC (4.0-5.2) X10^6/uL Hgb (12.0-16.0) g/dL Hct (36-46) % MCV (80-100) fL MCH (26-34) PG MCHC (30-36) % RDW (11.6-14.8) % Plt Count (150-400) X10^3/uL Neut % (Auto) (50-75) % Lymph % (Auto) (25-40) % [place] % (Auto) (3-14) % Eos % (Auto) (2-4) % Baso % (Auto) (0-2) % Neut # (Auto) (9276-4094) /uL Lymph # (Auto) (6338-6372) /uL [place]ston # (Auto) (0-900) /uL Eos # (Auto) (0-450) /uL Baso # (Auto) (0-100) /uL PT (10.1-12.7) SECONDS INR (0.9-1.3) APTT (26-36) SECONDS Sodium (137-145) mmol/L Potassium (3.4-5.1) mmol/L Chloride (98-107) mmol/L Carbon Dioxide (22-32) mmol/L BUN (7-17) mg/dL Creatinine (0.52-1.04) mg/dL Estimated GFR (>60) mL/min BUN/Creatinine Ratio (6-22) Glucose (80-110) mg/dL Calcium (8.4-10.2) mg/dL Magnesium (1.6-2.3) mg/dL Total Bilirubin (0.2-1.3) mg/dL AST (14-36) IU/L ALT (<35) IU/L Alkaline Phosphatase (38-126) U/L Total Creatine Kinase (30-135) U/L CK-MB (CK-2) CK-MB (CK-2) Rel Index Troponin I (0.01-0.034) ng/mL Total Protein (6.3-8.2) g/dL Albumin (3.5-5.0) g/dL Globulin (1.7-4.1) g/dL Albumin/Globulin Ratio (1.0-2.8) U Opiates 300ng/mL cut Negative (Negative) Ur Oxycodone Screen Negative (Negative) Urine Methadone Screen Negative (Negative) Ur Barbiturates Screen Negative (Negative) U Tricyclic Antidepress Negative (Negative) Ur Phencyclidine Scrn Negative (Negative) Ur Amphetamines Screen Negative (Negative) U Methamphetamines Scrn Negative (Negative) Ur MDMA Scrn (Ecstasy) Negative (Negative) U Benzodiazepines Scrn Negative (Negative) Urine Cocaine Screen Negative (Negative) U Marijuana (THC) Screen Negative (Negative) Ethyl Alcohol < 10 ( - 10) mg/dL Point of Care Testing Glucose POC 236 MDM Narrative Medical decision making narrative: CC: 67F with slurred speech and trouble finding words since this morning Complicating co-morbidities: age, HTN, hyperlipidemia Data collected from: Patient Medical records reviewed: Prior notes reviewed in our EMR Differential considered, but not limited to: Stroke, TIA versus other Exam documented above, pertinent findings include: Slurring words, expressive aphasia, otherwise unremarkable Lab Test results independently reviewed as above. Pertinent findings: No significant abnormal findings Independently reviewed EKG as above Imaging studies independently reviewed: No significant abnormal Scores Used: NIHSS MIPS Elements: #187: Stroke & Stroke Rehabilitation: Thrombolytic Therapy [x] Patient arrived more than 3.5 hours after last known well time, or the time last known well is unknown PATIENT NOT TPA Candidate] Consultations: hospitalist (Tania) Treatments: ASA Re-evaluations: no interval change during visit Discussion: 67-year-old female presents with speech abnormality waking. She went to bed feeling fine unwell and awoke with slurring and an expressive aphasia in the absence of other obvious neurologic symptoms. She arrived in the emergency department while outside of any time frame for the administration of tPA and does not demonstrate symptoms consistent with a large vessel occlusion. She requires hospitalization for ongoing evaluation and stabilization of her condition Discharge Plan Departure Patient Disposition: Admitted as Observation Clinical Impression: Stroke Qualifiers: CVA mechanism: unspecified Qualified Code(s): I63.9 - Cerebral infarction, unspecified Admit Date/Time: 08/26/22 22:32 Admit Provider: Hui Marin
[2022-08-26] MEDS: ASPIRIN 81 MG CHEW TAB 324 MG PO (22:46)
[2022-08-26] MEDS: MAGNESIUM OXIDE 400 MG TABLET PO (22:47)
[2022-08-26 22:49] LABS: Ethanol (ETOH) < 10 mg/dL
--- NOTE | 2022-08-26 23:19 | DI.MRI.S_ITS ---
PROCEDURE: MR HEAD/BRAIN WO CON INDICATIONS: R/O CVA TECHNIQUE: Noncontrast axial T1 spin echo, axial T2 fast spin echo, sagittal and axial FLAIR, coronal T2 fast spin echo, axial gradient echo, axial diffusion and ADC through the brain. COMPARISON: None. FINDINGS: Image quality: Excellent. CSF Spaces: Basal cisterns are patent. No extra-axial fluid collections. Ventricles are normal in size and shape. Brain: No intracranial masses or hemorrhage. Carrillo/white matter interface is normal. Brainstem appears normal. Within the left globus pallidus there is a 2.4 x 1.2 x 0.5 cm focus of T2/FLAIR signal and diffusion restriction consistent with acute/subacute infarction. Punctate subcortical FLAIR signal consistent with small vessel ischemic changes. Normal intravascular flow voids are present. Skull and face: Calvarium has normal marrow signal. Orbits appear normal. Sinuses: Sinuses and mastoids are clear. IMPRESSION: 1. Acute/subacute infarction of the left globus pallidus. Findings were discussed with Dr. Marin. 2. Punctate subcortical FLAIR signal consistent with small vessel ischemic changes. Dictated by: Thai Martínez M.D. on 08/27/2022 at 12:53 Approved by: Thai Martínez M.D. on 08/27/2022 at 13:06
[2022-08-26 23:29] LABS: UR Morphine/Opiate cutoff 300 Negative (Negative); Ur Creatinine Normal (Normal); Ur Specific Gravity Normal (Normal); Urine Amphetamines Negative (Negative); Urine Barbiturates Negative (Negative); Urine Benzodiazepines Negative (Negative); Urine Cocaine Negative (Negative); Urine MDMA Negative (Negative); Urine Methadone Negative (Negative); Urine Methamphetamines Negative (Negative); Urine Oxycodone Negative (Negative); Urine Phencyclidine Negative (Negative); Urine Tetrahydrocannabinol Negative (Negative); Urine Tricyclic Antidepressant Negative (Negative); Urine pH Normal (Normal)
[2022-08-26 23:48] LABS: COVID19 -Nasal RAPID Negative (Negative)
[2022-08-27] VITALS (7 sets, daily range): BP systolic 135–157; BP diastolic 58–79; PULSE 74–94; RESP 15–17; TEMP 35.7–37.2; O2SAT 95–99
[2022-08-27] MEDS: INSULIN LISPRO 100 UNIT/ML 3ML VIAL SUBCUT ×5 (00:32→20:54)
--- NOTE | 2022-08-27 01:16 | PC.ADMIT ---
Addendum entered by Rona Mercer R.N. 08/27/22 01:23: Oriented to call light and bed controls. Original Note: 817 06/[address] [place] [address] Admission Note: The patient,Marlene Meadows,67 y/o, was given written information regarding hospital policies, unit procedures and contact persons. Patient's smoking status: Never smoker. Vital Signs - 8 hr 08/26/22 20:15 08/26/22 21:17 08/26/22 21:18 Temperature 98.4 F Pulse Rate 113 H 99 H Respiratory Rate 18 Blood Pressure 188/108 H 162/80 H Pulse Oximetry 100 99 Oxygen Delivery Method Room Air 08/26/22 21:30 08/26/22 22:00 08/26/22 22:26 Temperature Pulse Rate 87 87 99 H Respiratory Rate 26 H 26 H 26 H Blood Pressure Pulse Oximetry 98 98 98 Oxygen Delivery Method 08/26/22 22:26 08/26/22 22:30 08/26/22 22:30 Temperature Pulse Rate 92 H Respiratory Rate 25 H Blood Pressure 167/104 H 177/104 H Pulse Oximetry 99 Oxygen Delivery Method 08/26/22 23:00 08/26/22 23:00 08/27/22 01:14 Temperature Pulse Rate 75 Respiratory Rate 24 Blood Pressure 196/81 H Pulse Oximetry 100 Oxygen Delivery Method Room Air Patient admitted to room 204 at 2315 per stretcher. Able to ambulate to/from bathroom with SBA and seems steady on feet. Is alert and oriented but has slurred speech. Has no upper teeth; does have upper dentures but does not have them with. Patient endoreses that slurred speech is not her normal. NIH is 2 for slurred speech. Breath sounds CTA with RA sat of 100%. HRR w/telemetry reading of SR. BP elevated at 196/81 and MD is aware of hypertension and is allowing for permissive hypertension; Lisinopril not given tonight as was not within designated parameters. Denies nausea. BT present and abdomen is soft. Denies dysuria but has chronic frequency. Able to turn self in bed and being assisted when out of bed with SBA. Denies pain. Fall risk score is moderate and bed alarm is activated.
[2022-08-27 06:53] LABS: Add Manual Diff / Slide Review NO; Basophils Absolute Auto 0 /uL (0-100); Basophils Percent Auto 0.4 % (0-2); Eosinophils Absolute Auto 100 /uL (0-450); Hematocrit 38.9 % (36-46); Hemoglobin 13.9 g/dL (12.0-16.0); Lymphocytes Absolute Auto 1600 /uL (1100-4500); Lymphocytes Percent Auto 22.8 % (25-40); Mean Corpuscular HGB Conc 35.9 % (30-36); Mean Corpuscular Hemoglobin 31.2 PG (26-34); Mean Corpuscular Volume 86.9 fL (80-100); Monocytes Absolute Auto 600 /uL (0-900); Monocytes Percent Auto 8.6 % (3-14); Neutrophils Absolute Auto 4700 /uL (1500-7000); Neutrophils Percent Auto 67.2 % (50-75); Platelet Count 350 X10^3/uL (150-400); Red Blood Cell Count 4.47 X10^6/uL (4.0-5.2); Red Cell Distribution Width 12.4 % (11.6-14.8)
[2022-08-27 07:03] LABS: Alanine Aminotransferase 40 IU/L (<35); Albumin Globulin Ratio 1.7 (1.0-2.8); Alkaline Phosphatase 99 U/L (38-126); Aspartate Aminotransferase 35 IU/L (14-36); BUN Creatinine Ratio 23.3 (6-22); Bilirubin Total 0.8 mg/dL (0.2-1.3); Blood Urea Nitrogen 10 mg/dL (7-17); Calcium 9.1 mg/dL (8.4-10.2); Carbon Dioxide 26 mmol/L (22-32); Chloride 101 mmol/L (98-107); Estimated Glomerular Filt Rate > 60 mL/min (>60); Globulin 2.4 g/dL (1.7-4.1); Glucose 165 mg/dL (80-110); HEMOLYSIS < 15 (0-50); Magnesium 1.8 mg/dL (1.6-2.3); Potassium 3.8 mmol/L (3.4-5.1); Sodium 135 mmol/L (137-145); Total Protein 6.4 g/dL (6.3-8.2)
[2022-08-27 07:41] LABS: Thyroid Stimulating Hormone 2.69 uIU/mL (0.47-4.68)
[2022-08-27] MEDS: ASPIRIN 325 MG TABLET PO (08:11)
[2022-08-27] MEDS: ATORVASTATIN 20 MG TABLET 40 MG PO (08:11)
--- NOTE | 2022-08-27 11:43 | DI.ECHO.S_ITS ---
Interpretation Summary The study quality was technically limited. Most of the acoustic windows were suboptimal, but the best imaging was obtained from the subcostal window. The left ventricle is normal in size and wall thickness. Left ventricular systolic function is normal. The ejection fraction is estimated to be 60-65%. There are no obvious focal wall motion abnormalities noted but poor endocardial definition reduces the sensitivity for the detection of such. Procedure: A two-dimensional transthoracic echocardiogram with color flow and Doppler was performed. The study quality was technically limited. Most of the acoustic windows were suboptimal, but the best imaging was obtained from the subcostal window. There is no prior echocardiogram noted for this patient. The patient was in sinus tachycardia with heart rates between 90-104 bpm during the exam. Left Ventricle: The left ventricle is normal in size and wall thickness. Left ventricular systolic function is normal. The ejection fraction is estimated to be 60-65%. There are no obvious focal wall motion abnormalities noted but poor endocardial definition reduces the sensitivity for the detection of such. Right Ventricle: The right ventricle is not well visualized. Atria: The left atrium is not well visualized. Right atrium not well visualized. There is no Doppler evidence for an interatrial shunt. Mitral Valve: The mitral valve is normal in structure and function. There is no mitral regurgitation noted. Aortic Valve: The aortic valve is normal in structure and function. There is mild aortic valve sclerosis. No aortic regurgitation is present. Tricuspid Valve: The tricuspid valve is normal in structure and function. There is a trace or physiologic amount of tricuspid regurgitation. Pulmonic Valve: The pulmonic valve leaflets are thin and pliable; valve motion is normal. There is no pulmonic valvular regurgitation. Great Vessels: The ascending aorta is normal in size. The IVC is of normal diameter and collapses greater than 50% with a sniff. This suggests a low right atrial pressure of 3 mm Hg. Pericardium/ Pleura There is no pericardial effusion. There is an anterior echo-free space consistent with a fat pad. There is no pleural effusion. MMode/2D Measurements & Calculations LVIDd: 3.6 cm LVOT diam: 1.9 cm LVIDs: 2.2 cm asc Aorta Diam: 2.4 cm FS: 37.9 % IVSd: 0.81 cm LVPWd: 0.92 cm LV mccabe. diameter/BSA (cm/m^2): 2.5 LV sys. diameter/BSA (cm/m^2): 1.6 Doppler Measurements & Calculations TR max gavin: 192.7 cm/sec TR max P.8 mmHg PA V2 max: 98.7 cm/sec PA V2 mean: 66.9 cm/sec PA mean P.1 mmHg Reading Physician:01:20 PM
[2022-08-27] MEDS: LORazepam 2 MG/ML INJ 0.5 MG IV ×2 (12:48→18:40)
--- NOTE | 2022-08-27 13:20 | CM.DANOTE ---
DCP: Case received, EMR reviewed. Pt is a 67yo female who arrived via pov with c/o of inability to speak clearly upon waking and was admitted with noted expressive aphasia. This CM met with pt in her room. IntroducesPt's was in her room. Pt states her is her main contact and she gave permission to speak with him regarding her care. She is A+Ox4. Pt states that she lives with her in [place]. Pt states that she does not drive. She states that she attained a permit when she was very young and that she did not pursue getting a drivers license due to having some fears when driving. Pt declines that use of DME. PCP: Hui Marin Insurance: Medicare; for life P: Home with when medically stable. Per maricruz Santos. MRI is scheduled. Vaishali Barrett RN Case Manager Discharge Planning/Care Management CM Discharge Assessment Start: 08/27/22 13:15 Freq: Status: Active Protocol: Document 08/27/22 13:16 ELVI (Rec: 08/27/22 13:20 [id number]) Discharge Planning Assessment Assigned Communications Maintainer Vaishali Barrett RN Case Manager Advance Directives? No History Provided By Patient,Significant Other Has Patient been admitted in last 30 No days? Prior Living Arrangements Apartment/Condo Household Members spouse Type of transporation used prior to Relies on Others admit Comment Pt has only had a permit 1x and chose not to pursuit a license per pt as historian Independent with ADL's Yes Is patient alert and oriented? Yes Caregiver for Another No Barriers to Discharge No Discharge Plan Home Transportation Arrangement Family to provide transport. Referrals Initiated None needed Whiteboard Updated in Patient Room with Yes name and ext. # of Communications Maintainer Review Status In Process Next Review Type Continued Stay Review
--- NOTE | 2022-08-27 15:20 | P.HP_ITS ---
History of Present Illness History of Present Illness Date Patient Seen: 08/27/22 Time Patient Seen: 15:20 Date of Onset of Symptoms: 08/26/22 Chief complaint: Slurred speech, Stroke symptoms Narrative: This is a very pleasant 67-year-old female who is a former patient of Dr. Ledesma. Patient has a past medical history of hypertension, hyperlipidemia and type 2 diabetes on metformin. The patient apparently was in her normal state of health on night and went to bed about midnight. She awakened about 9:00 a.m. and had some slurred speech and just thought that she was tired and then in the evening she took a nap and she awakened and had more significant slurred speech and difficulty finding words. She is brought to the emergency department where imaging did not show any acute abnormalities. Her CT of her head was negative. She had a CT angiogram that showed no significant stenosis but mild to moderate narrowing of the internal carotid arteries bilateral. She had a chest x-ray that was normal. Due to suspected CVA it was felt that she needed further hospitalization for monitoring and treatment. At presentation to the ER she was outside the window for thrombolytics. She had dysarthria and dysphagia but no focal motor or other neurologic deficit. Patient has had an uneventful night with no further problems. Patient was on a baby aspirin and was given a full aspirin in the ER. Past medical history: 1. Is hypertension, well-controlled as outpatient 2. Hyperlipidemia 3. Type 2 diabetes 4. History of GERD 5. Vaginal vault prolapse after hysterectomy 6. Spontaneous vaginal deliveries x3 7. Cystocele Allergy patient has itching with Tylenol Past surgical history Hysterectomy Cystocele repair Bilateral tubal ligation Tonsillectomy and adenoidectomy Hernia repair Health her to behavior: Patient does not use alcohol or street drugs or recreational drugs or tobacco products and never has. Family history: Father had bone cancer, coronary artery disease and hypertension, Mom had hypertension and coronary artery disease. She had a stroke in her 70s. She is Brother with hypertension and coronary artery disease Sister with coronary artery disease Patient has a grandfather who committed suicide Social history: Patient lives with her Pepe who is present for evaluation. They live in [place]. He is retired . They are both originally from [facility]. They have 3 children who are grown Patient went to school through 12th grade. She would no problems in school. Review of systems: Negative for any chest pain or headaches or hypertension or marked elevation in her blood pressure, no GI symptoms. No recent heartburn. No lightheadedness or dizziness or presyncope or syncope. No urinary symptoms. No fever or chills or cough. Patient has been sleeping normally. She is not had any rashes. Patient was hospitalized in February at [facility] and was having mental status changes. She had psychiatric consult. They thought that it was hypoglycemia. Apparently she has struggled somewhat to get back on her routine since then and seems to have some cognitive difficulties with this. Prior to February she had no problems. 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) Bronchitis Chicken pox (~1962) H/O vaginal delivery Measles (~1963) Mumps (~1958) POP-Q stage 2 cystocele Vaginal vault prolapse after hysterectomy Wears dentures Surgical History Anesthesia H/O vaginal hysterectomy History of hernia repair (~1988) History of tonsillectomy (~1971) History of tubal ligation (~1978) Tumor (~1965) Family & Social History Family History Father Bone cancer History of heart disease Hypertension Mother History of heart disease Hypertension Stroke Brother History of heart disease Hypertension Sister History of heart disease Grandfather Suicide Social History: household members spouse Prior Living Arrangements Apartment/Condo Safety & Behavioral: Feels Safe in Current Yes Environment Tobacco & Substance use: Smoking Status Never smoker alcohol intake never alcohol intake frequency 0-2 drinks per day Substance Use Type does not use Meds Home Medications and Allergies Home Medications Medication Instructions Recorded Confirmed Type aspirin 81 mg tablet,delayed 81 mg PO DAILY 08/02/19 08/26/22 History release atorvastatin 40 mg tablet 40 mg PO DAILY 08/02/19 08/26/22 History lisinopril 40 mg tablet 40 mg PO DAILY 08/02/19 08/26/22 History metformin 500 mg tablet 1,000 mg PO BID 08/02/19 08/26/22 History cholecalciferol (vitamin D3) 25 50 mcg PO DAILY 12/30/19 08/26/22 History mcg (1,000 unit) capsule (Vitamin D3) multivitamin 1 tab PO DAILY 12/30/19 08/26/22 History Allergies Allergy/AdvReac Type Severity Reaction Status Date / Time garlic AdvReac Intermediate acid reflux Verified 02/26/22 19:24 Influenza Virus Vaccines AdvReac Mild Verified 02/26/22 19:24 acetaminophen [From Tylenol] AdvReac Itching Verified 02/26/22 19:24 Review of Systems Review of Systems Narrative: Twelve point review of systems otherwise negative Patient has lost 15 lb over the last 6 months by walking regularly. This has been intentional. Exam Vital Signs (past 8 hours): - 08/27/22 08:20 08/27/22 14:26 Temperature 96.2 F L Pulse Rate 93 H 94 H Respiratory Rate 16 Blood Pressure 144/79 H 157/69 H Pulse Oximetry 95 Oxygen Flow Rate 0 Oxygen Delivery Method Room Air Oxygen Flow Rate 0 Narrative Exam Narrative: Afebrile vital signs are stable HEENT shows patient is edentulous on the top. Pupils equal round reactive to light with extraocular movements intact. No deviation of the tongue. Smile is normal. There is no facial asymmetry. No evidence of facial droop. Neck: Supple without adenopathy, thyromegaly, jugular venous distention or carotid bruit Chest: Clear to auscultation without wheezes rhonchi or crackles Cor: Regular rate and rhythm with distant S1-S2 Abdomen: Positive bowel sounds, soft, nontender, nondistended Extremities no edema, pulses intact Neurologic exam patient is having some word-finding difficulty but is able to communicate. Her speech is slurred. Cranial nerves 2-12 are otherwise intact. Strength is 5/5 in all large muscle groups upper and lower extremities. Patient does have a wide-based gait but this is unchanged and she is steady. There is no dysmetria with [id number] or [id number]. Romberg is negative. Skin no rashes Objective Labs 08/27/22 06:38 08/27/22 06:38 Labs: Laboratory Results - last 24 hr 08/26/22 08/26/22 08/26/22 20:40 20:40 20:40 WBC 9.4 RBC 4.53 Hgb 14.3 Hct 39.9 MCV 88.1 MCH 31.5 MCHC 35.8 RDW 12.5 Plt Count 374 Neut % (Auto) 75.0 Lymph % (Auto) 16.5 L Woodruff % (Auto) 6.5 Eos % (Auto) 1.0 L Baso % (Auto) 1.0 Neut # (Auto) 7000 Lymph # (Auto) 1600 Woodruff # (Auto) 600 Eos # (Auto) 100 Baso # (Auto) 100 PT 14.3 H INR 1.2 APTT 28 Sodium 132 L Potassium 3.9 Chloride 99 Carbon Dioxide 23 BUN 16 Creatinine 0.54 Estimated GFR > 60 BUN/Creatinine Ratio 29.6 H Glucose 222 H Calcium 9.6 Magnesium 1.4 L Total Bilirubin 0.6 AST 38 H ALT 40 H Alkaline Phosphatase 115 Total Creatine Kinase 34 CK-MB (CK-2) TNP CK-MB (CK-2) Rel Index TNP Troponin I < 0.012 Total Protein 6.8 Albumin 4.2 Globulin 2.6 Albumin/Globulin Ratio 1.6 TSH U Opiates 300ng/mL cut Ur Oxycodone Screen Urine Methadone Screen Ur Barbiturates Screen U Tricyclic Antidepress Ur Phencyclidine Scrn Ur Amphetamines Screen U Methamphetamines Scrn Ur MDMA Scrn (Ecstasy) U Benzodiazepines Scrn Urine Cocaine Screen U Marijuana (THC) Screen Ethyl Alcohol SARS-CoV-2 (PCR) 08/26/22 08/26/22 08/26/22 20:40 22:30 22:44 WBC RBC Hgb Hct MCV MCH MCHC RDW Plt Count Neut % (Auto) Lymph % (Auto) Woodruff % (Auto) Eos % (Auto) Baso % (Auto) Neut # (Auto) Lymph # (Auto) Woodruff # (Auto) Eos # (Auto) Baso # (Auto) PT INR APTT Sodium Potassium Chloride Carbon Dioxide BUN Creatinine Estimated GFR BUN/Creatinine Ratio Glucose Calcium Magnesium Total Bilirubin AST ALT Alkaline Phosphatase Total Creatine Kinase CK-MB (CK-2) CK-MB (CK-2) Rel Index Troponin I Total Protein Albumin Globulin Albumin/Globulin Ratio TSH U Opiates 300ng/mL cut Negative Ur Oxycodone Screen Negative Urine Methadone Screen Negative Ur Barbiturates Screen Negative U Tricyclic Antidepress Negative Ur Phencyclidine Scrn Negative Ur Amphetamines Screen Negative U Methamphetamines Scrn Negative Ur MDMA Scrn (Ecstasy) Negative U Benzodiazepines Scrn Negative Urine Cocaine Screen Negative U Marijuana (THC) Screen Negative Ethyl Alcohol < 10 SARS-CoV-2 (PCR) Negative 08/27/22 08/27/22 08/27/22 06:38 06:38 06:38 WBC 7.0 RBC 4.47 Hgb 13.9 Hct 38.9 MCV 86.9 MCH 31.2 MCHC 35.9 RDW 12.4 Plt Count 350 Neut % (Auto) 67.2 Lymph % (Auto) 22.8 L Woodruff % (Auto) 8.6 Eos % (Auto) 1.0 L Baso % (Auto) 0.4 Neut # (Auto) 4700 Lymph # (Auto) 1600 Woodruff # (Auto) 600 Eos # (Auto) 100 Baso # (Auto) 0 PT INR APTT Sodium 135 L Potassium 3.8 Chloride 101 Carbon Dioxide 26 BUN 10 Creatinine 0.43 L Estimated GFR > 60 BUN/Creatinine Ratio 23.3 H Glucose 165 H Calcium 9.1 Magnesium 1.8 Total Bilirubin 0.8 AST 35 ALT 40 H Alkaline Phosphatase 99 Total Creatine Kinase CK-MB (CK-2) CK-MB (CK-2) Rel Index Troponin I Total Protein 6.4 Albumin 4.0 Globulin 2.4 Albumin/Globulin Ratio 1.7 TSH 2.69 U Opiates 300ng/mL cut Ur Oxycodone Screen Urine Methadone Screen Ur Barbiturates Screen U Tricyclic Antidepress Ur Phencyclidine Scrn Ur Amphetamines Screen U Methamphetamines Scrn Ur MDMA Scrn (Ecstasy) U Benzodiazepines Scrn Urine Cocaine Screen U Marijuana (THC) Screen Ethyl Alcohol SARS-CoV-2 (PCR) Assessment & Plan Assessment & Plan narrative: 67-year-old female who is admitted for probable CVA Assessment 1. CVA. MRI was done and shows a acute/subacute left basal ganglia or globus pallidus infarct. Thought that this is most likely greater than 12 hours old. This is based on the imaging. Patient has been on telemetry and the re has been no arrhythmia. Echo is pending. Will continue on statin and continue on antihypertensive. She will be on a full 324 mg aspirin daily. We will consult speech therapy, PT and OT. I suspect patient will likely be able to go home if she remains stable with further treatment as outpatient. Viral studies are negative as it urine drug screen. Assessment 2. Hypertension Plan: Continue lisinopril and will continue to monitor. Assessment 3. Hyperlipidemia Plan: Will check lipids in the morning. Will continue with atorvastatin. Assessment 4. Type 2 diabetes on metformin. Will continue with CBGS q.a.c. and q.h.s. and sliding scale insulin. Will start metformin tomorrow. Patient's last hemoglobin A1c was elevated she was recently taken off her glimepiride because it was thought that this was causing hypoglycemia. However the states that when they checked this she had not eaten for 2 meals and had taken in the morning. Assessment 5. GERD no current symptoms. Code status is full code. 60 minutes was spent with patient in discussing with physicians, nursing meeting with patient and her , reviewing the chart in workup and formulation of plan and documentation. Time Spent With Patient Critical Care time: I spent a total of [] minutes of critical care time on this patient's care today; this time is exclusive of procedural time.
--- NOTE | 2022-08-27 17:59 | ST.IPSLE ---
Visit Care Team Role Provider Type Madi Spicer DO Emergency Provider Physician Referring Provider Specialty: Emergency Medicine Address: [address] [place] [address], [id number] Email: [email or web address] Hui Marin MD Admit Provider Physician Attending Provider Primary Care Provider Specialty: Family Practice Address: [address] [place] [address], [address], [place], [place], [facility] Email: [email or web address] Current Diagnoses Cerebral infarction, unspecified (08/26/22) Past Medical History (Last Reviewed 02/26/22 @ 19:42 by Madi Spicer DO) Acid reflux (Medical) Allergies (Medical ~1962) Anxiety (Medical ~2017) Asthma (Medical ~2018) Benign familial tremor (Medical ~1964) Bronchitis (Medical) Chronic Chicken pox (Medical ~1962) H/O vaginal delivery (Medical) Measles (Medical ~1963) Mumps (Medical ~1958) POP-Q stage 2 cystocele (Medical) Vaginal vault prolapse after hysterectomy (Medical) Wears dentures (Medical) Upper Speech-Language Pathology Speech/Language Eval GAS GENERATOR OPERATOR Adult Cognitive Linguistic Eval Start: 08/27/22 17:45 Freq: Status: Active Protocol: Document 08/27/22 17:45 CG (Rec: 08/27/22 17:59 CG [id number]) Adult Cognitive Linguistic Evaluation Session Time Visit Start Time 04:18 Visit Stop Time 04:41 Total Visit Minutes 23 Visit Information Visit Number 1 Setting Assessment Location Acute Care Visit Type Note Type Initial evaluation Next Note Type Next Note Type Treatment Note Patient Information Identification Type Name,Wristband Patient History Per H&P: This is a very pleasant 67-year-old female who is a former patient of Dr. Ledesma. Patient has a past medical history of hypertension, hyperlipidemia and type 2 diabetes on metformin. The patient apparently was in her normal state of health on night and went to bed about midnight. She awakened about 9:00 a.m. and had some slurred speech and just thought that she was tired and then in the evening she took a nap and she awakened and had more significant slurred speech and difficulty finding words. She is brought to the emergency department where imaging did not show any acute abnormalities. Her CT of her head was negative. She had a CT angiogram that showed no significant stenosis but mild to moderate narrowing of the internal carotid arteries bilateral. She had a chest x- ray that was normal. Due to suspected CVA it was felt that she needed further hospitalization for monitoring and treatment. At presentation to the ER she was outside the window for thrombolytics. She had dysarthria and dysphagia but no focal motor or other neurologic deficit. Patient has had an uneventful night with no further problems . Patient was on a baby aspirin and was given a full aspirin in the ER. Hearing Hearing Level Normal Subjective Patient Report Pt stated she was doing better than yesterday. She was seated upright at the edge of bed with her spouse present in the room. She was observed to independently ambulate throughout the room. Able to make needs known and understood all commands. Did not report any pain. Assessment Oral Motor Examination Completed Yes Results Tongue: Lingual agility and strength were mostly WNL; however, mildly reduced strength and ROM on R side was observed in lingual press task. At rest, the tongue deviated slightly to the right . Jaw: Mandibular strength and ROM appeared WNL. Lips: Labial agility and ROM were midly-moderately reduced during pucker-smile task. DDK: Pt was unable to sequence /pataka/ syllables at a rapid rate. When trying to speed up to expected rate, pt would switch initial consonants in the sequence. Informal Assessment Receptive Language Normal Yes Receptive Language Impairment(s) Comprehension of simple yes/no questions,Comprehension of complex yes/no questions, Following 1-step commands, Right/left discrimination, Comprehension of conversation Expressive Language Normal Yes Pragmatic Language Normal Yes Speech Normal No Speech Impairment(s) Imprecise articulation,Slow speech rate,Hypernasality Cognition Normal Yes Findings/Results Language Function Mildly impaired Cognitive Function Within normal limits Findings Pt presents with dysarthric speech characterized by imprecise articulation, innacurate articulation ( phoneme substitutions), and hypernasality. Based on recent and sudden onset, these speech characteristics may be the result of an acute neurologic event, though unclear if UMN or LMN etiology . Pt's language skills appear WFL for syntax, semantics, and pragmatics. She is able to hold a conversation and is 90- 100% intelligible with slow rate. Confrontation naming was intact and pt was oriented to purpose, place, person, and time. GAS GENERATOR OPERATOR provided handout of exercises to improve speech intelligbility. Impact on Functioning Activity Limits/Particip.Rest. Mild: General Tasks and Demands Household Tasks Education Mod: Interpersonal Interactions Community Prognosis Prognosis Good Based on Cognitive status,Family support Plan of Care Speech-Language Treatment Yes Patient/Caregiver Education Described results of evaluation,Patient expressed understanding of evaluation, Patient expressed agreement with goals and treatment plans ,Family/caregivers expressed understanding of evaluation Short Term Goals Pt will complete exercises for dysarthria independently. Pt will demonstrate ability to communicate wants and needs using compensatory strategies such as over-articulation and pacing board. Discharge Recommendations Home
--- NOTE | 2022-08-27 18:25 | ST.IPCSEOM ---
Visit Care Team Role Provider Type Madi Spicer DO Emergency Provider Physician Referring Provider Specialty: Emergency Medicine Address: [address] [place] [address], [id number] Email: [email or web address] Hui Marin MD Admit Provider Physician Attending Provider Primary Care Provider Specialty: Family Practice Address: [facility], [facility], [place], [place], [facility] Email: [email or web address] Current Diagnoses Cerebral infarction, unspecified (08/26/22) Past Medical History (Last Reviewed 02/26/22 @ 19:42 by Madi Spicer DO) Acid reflux (Medical) Allergies (Medical ~1962) Anxiety (Medical ~2018) Asthma (Medical ~2019) Benign familial tremor (Medical ~1964) Bronchitis (Medical) Chronic Chicken pox (Medical ~1962) H/O vaginal delivery (Medical) Measles (Medical ~1963) Mumps (Medical ~1958) POP-Q stage 2 cystocele (Medical) Vaginal vault prolapse after hysterectomy (Medical) Wears dentures (Medical) Upper
[2022-08-27] MEDS: SODIUM CHLORIDE 0.9% FLUSH 10 ML IV (20:53)
--- NOTE | 2022-08-27 22:59 | PC.NURSE ---
Patient is alert and oriented. Continues to have slurred speech but is understandable. NIH = 2. Breath sounds CTA with RA sat of 99%. HRR with telemetry reading of SR. Denied nausea. BT present and abdomen is soft. Up to bathroom to void frequently which she states is normal for her; denies dysuria. Is independent with mobility and steady on her feet. Denied pain. Fall risk score is moderate.
[2022-08-28 03:30] VITALS: BP 136/59; PULSE 67; RESP 16; TEMP 36.2; O2SAT 100
[2022-08-28 08:00] VITALS: BP 156/66; PULSE 85; RESP 16; TEMP 35.6; O2SAT 97
[2022-08-28] MEDS: INSULIN LISPRO 100 UNIT/ML 3ML VIAL SUBCUT ×2 (08:31→12:04)
[2022-08-28 08:33] LABS: Add Manual Diff / Slide Review NO; Basophils Absolute Auto 0 /uL (0-100); Basophils Percent Auto 0.6 % (0-2); Eosinophils Absolute Auto 100 /uL (0-450); Eosinophils Percent Auto 2.1 % (2-4); Hematocrit 39.2 % (36-46); Hemoglobin 13.8 g/dL (12.0-16.0); Lymphocytes Absolute Auto 1600 /uL (1100-4500); Lymphocytes Percent Auto 25.4 % (25-40); Mean Corpuscular HGB Conc 35.2 % (30-36); Mean Corpuscular Hemoglobin 31.2 PG (26-34); Mean Corpuscular Volume 88.6 fL (80-100); Monocytes Absolute Auto 500 /uL (0-900); Monocytes Percent Auto 7.8 % (3-14); Neutrophils Absolute Auto 4100 /uL (1500-7000); Neutrophils Percent Auto 64.1 % (50-75); Platelet Count 335 X10^3/uL (150-400); Red Blood Cell Count 4.42 X10^6/uL (4.0-5.2); Red Cell Distribution Width 12.4 % (11.6-14.8); White Blood Cell Count 6.4 X10^3/uL (4.5-11.0)
[2022-08-28] MEDS: ATORVASTATIN 20 MG TABLET 40 MG PO (08:36)
[2022-08-28] MEDS: ASPIRIN 325 MG TABLET PO (08:36)
[2022-08-28] MEDS: MAGNESIUM OXIDE 400 MG TABLET PO (08:36)
[2022-08-28 08:37] VITALS: BP 156/66; PULSE 85
[2022-08-28] MEDS: SODIUM CHLORIDE 0.9% FLUSH 10 ML IV (08:37)
[2022-08-28 08:53] LABS: Cholesterol 143 mg/dL (140-199); HDL Cholesterol 45 mg/dL (40-60); LDL Cholesterol Calculated 73 mg/dL (<100); Triglycerides 123 mg/dL (35-150)
[2022-08-28 08:54] LABS: BUN Creatinine Ratio 22.2 (6-22); Blood Urea Nitrogen 10 mg/dL (7-17); Carbon Dioxide 24 mmol/L (22-32); Chloride 101 mmol/L (98-107); Estimated Glomerular Filt Rate > 60 mL/min (>60); Glucose 261 mg/dL (80-110); Sodium 133 mmol/L (137-145)
[2022-08-28 08:56] LABS: Calcium 8.8 mg/dL (8.4-10.2); HEMOLYSIS < 15 (0-50); Potassium 4.1 mmol/L (3.4-5.1)
--- NOTE | 2022-08-28 10:56 | PM.DS.1 ---
History of Present Illness History of Present Illness Date Patient Seen: 08/28/22 Time Patient Seen: 10:56 Chief complaint: Slurred speech, Stroke symptoms Narrative: This is a very pleasant 67-year-old female who is a former patient of Dr. Ledesma. Patient has a past medical history of hypertension, hyperlipidemia and type 2 diabetes on metformin. The patient apparently was in her normal state of health on night and went to bed about midnight. She awakened about 9:00 a.m. and had some slurred speech and just thought that she was tired and then in the evening she took a nap and she awakened and had more significant slurred speech and difficulty finding words. She is brought to the emergency department where imaging did not show any acute abnormalities. Her CT of her head was negative. She had a CT angiogram that showed no significant stenosis but mild to moderate narrowing of the internal carotid arteries bilateral. She had a chest x-ray that was normal. Due to suspected CVA it was felt that she needed further hospitalization for monitoring and treatment. At presentation to the ER she was outside the window for thrombolytics. She had dysarthria and dysphagia but no focal motor or other neurologic deficit. Patient has had an uneventful night with no further problems. Patient was on a baby aspirin and was given a full aspirin in the ER. Past medical history: 1. Is hypertension, well-controlled as outpatient 2. Hyperlipidemia 3. Type 2 diabetes 4. History of GERD 5. Vaginal vault prolapse after hysterectomy 6. Spontaneous vaginal deliveries x3 7. Cystocele Allergy patient has itching with Tylenol Past surgical history Hysterectomy Cystocele repair Bilateral tubal ligation Tonsillectomy and adenoidectomy Hernia repair Health her to behavior: Patient does not use alcohol or street drugs or recreational drugs or tobacco products and never has. Family history: Father had bone cancer, coronary artery disease and hypertension, Mom had hypertension and coronary artery disease. She had a stroke in her 70s. She is Brother with hypertension and coronary artery disease Sister with coronary artery disease Patient has a grandfather who committed suicide Social history: Patient lives with her Pepe who is present for evaluation. They live in [place]. He is retired . They are both originally from [facility]. They have 3 children who are grown Patient went to school through 12th grade. She would no problems in school. Review of systems: Negative for any chest pain or headaches or hypertension or marked elevation in her blood pressure, no GI symptoms. No recent heartburn. No lightheadedness or dizziness or presyncope or syncope. No urinary symptoms. No fever or chills or cough. Patient has been sleeping normally. She is not had any rashes. Patient was hospitalized in February at [facility] and was having mental status changes. She had psychiatric consult. They thought that it was hypoglycemia. Apparently she has struggled somewhat to get back on her routine since then and seems to have some cognitive difficulties with this. Prior to February she had no problems. Discharge Providers Provider Date of admission: 08/26/22 22:32 Discharge Date: 08/28/22 Primary care physician: Hui Marin MD Consults: 08/26/22 23:11 Consult to Occupational Therapy Evaluate & Treat Comment: Physician Instructions: Evaluate and treat Consult to Physical Therapy Evaluate & Treat Comment: Physician Instructions: Evaluate and Treat 08/26/22 23:12 Consult to Speech Therapy Evaluate & Treat Comment: Physician Instructions: Evaluate and treat 08/26/22 23:41 Consult to Pastoral Services Routine Comment: patient request 08/27/22 14:53 Consult to Occupational Therapy Evaluate & Treat Comment: Physician Instructions: Evaluate and treat Consult to Physical Therapy Evaluate & Treat Comment: Physician Instructions: Evaluate and Treat Discharge provider: Hui Marin MD Summary Hospital Course Discharge Diagnosis: Assessment 1. Left basal ganglia subacute CVA 2. Type 2 diabetes 3. Hyperlipidemia 4. Hypertension Hospital Course: Patient was noted to have slurred speech. She was brought to the ER however it was approximately 18 hours after she was last noticed to be normal. She did not meet criteria for tPA. She was admitted to the hospital for further evaluation. She is placed on telemetry and had no arrhythmia. Echo is shows normal left ventricle size and function normal systolic function with ejection fraction 60-65% and they state that it is a suboptimal echo. Unclear why. No evidence of significant valvular disease there was mild aortic valve sclerosis was done on 08/27/2022. CT scan was unremarkable and CTA showed [id number] narrowing of the ICA but no significant stenosis. She underwent an MRI which showed a left basal ganglia acute/subacute infarct. Patient was evaluated by speech therapy and and physical therapy and occupational therapy and it was felt that she would require outpatient therapy. She is ambulatory without difficulty and able to do activities of daily living. She has some word-finding difficulty and some dysarthria as well as right upper extremity deficit in terms of proprioception and slight lag but normal strength. Patient will be discharged home on hospital day 2. On a full aspirin a day versus a baby aspirin. She will do outpatient speech therapy, occupational therapy and physical therapy. She will continue same other medications. She will follow-up with me this week. Status at Discharge Cognitive/behavioral status at discharge: oriented Functional status at discharge: independent ambulation Overall status at discharge: patient is progressing back to baseline Exam Vital Signs (past 8 hours): - 08/28/22 03:30 08/28/22 08:37 08/28/22 08:00 Temperature 97.1 F L 96.1 F L Pulse Rate 67 85 85 Respiratory Rate 16 16 Blood Pressure 136/59 L 156/66 H 156/66 H Pulse Oximetry 100 97 Oxygen Flow Rate 0 0 Oxygen Delivery Method Room Air Oxygen Flow Rate 0 Narrative Exam Narrative: Afebrile vital signs are stable HEENT unremarkable Neck: Supple without adenopathy Chest: Clear to auscultation without wheezes rhonchi or crackles Cor: Regular rate and rhythm without murmur Abdomen: Benign Extremities no edema, pulses intact Neurologic exam is unchanged although speech is improved. Still with dysarthria and garbled speech but I am able to comprehend all her words. Cranial nerves 2-12 are otherwise grossly intact. Her strength is symmetric bilateral upper and lower extremities but she does have delayed response and slight drift of right upper extremity. Slight decreased proprioception right upper extremity Objective Labs 08/28/22 08:15 08/28/22 08:15 Labs: Laboratory Results - last 24 hr 08/28/22 08/28/22 08/28/22 08:15 08:15 08:15 WBC 6.4 RBC 4.42 Hgb 13.8 Hct 39.2 MCV 88.6 MCH 31.2 MCHC 35.2 RDW 12.4 Plt Count 335 Neut % (Auto) 64.1 Lymph % (Auto) 25.4 Dickinson % (Auto) 7.8 Eos % (Auto) 2.1 Baso % (Auto) 0.6 Neut # (Auto) 4100 Lymph # (Auto) 1600 Dickinson # (Auto) 500 Eos # (Auto) 100 Baso # (Auto) 0 Sodium 133 L Potassium 4.1 Chloride 101 Carbon Dioxide 24 BUN 10 Creatinine 0.45 L Estimated GFR > 60 BUN/Creatinine Ratio 22.2 H Glucose 261 H Calcium 8.8 Triglycerides 123 Cholesterol 143 LDL Cholesterol, Calc 73 HDL Cholesterol 45 PFSH Medical History Acid reflux Allergies (~1962) Anxiety (~2018) Asthma (~2019) Benign familial tremor (~1964) Bronchitis Chicken pox (~1962) H/O vaginal delivery Measles (~1963) Mumps (~1958) POP-Q stage 2 cystocele Vaginal vault prolapse after hysterectomy Wears dentures Surgical History Anesthesia H/O vaginal hysterectomy History of hernia repair (~1988) History of tonsillectomy (~1971) History of tubal ligation (~1978) Tumor (~1965) Family History Father Bone cancer History of heart disease Hypertension Mother History of heart disease Hypertension Stroke Brother History of heart disease Hypertension Sister History of heart disease Grandfather Suicide Social History household members: spouse Smoking Status: Never smoker alcohol intake: never Discharge Assessment & Plan Assessment and Plan Assessment: 67-year-old female who sustained a left basal ganglia infarct. Patient is stable with still speech abnormality. She will be discharged home on her outpatient diabetic medications, antihypertensives and antihyperlipidemia medications. She will be discontinued on a baby aspirin and increase to a full aspirin. She will do outpatient PT, speech therapy and occupational therapy. She will monitor her blood sugars well because her metformin was not given in the hospital and she will need to restart this. I will see her back the end of this week. We will set her up with Neurology as an outpatient. Her echo does not show any clear etiologies. We reviewed her imaging. 35 minutes was spent with this patient in discharge. Discharge Plan Discharge Plan Patient Disposition: Home Discharge orders & Medications Prescriptions: New aspirin 325 mg Tablet 325 mg PO DAILY Qty: 90 0RF Continued metformin 500 mg tablet 1,000 mg PO BID lisinopril 40 mg tablet 40 mg PO DAILY atorvastatin 40 mg tablet 40 mg PO DAILY multivitamin Tablet 1 tab PO DAILY cholecalciferol (vitamin D3) [Vitamin D3] 25 mcg (1,000 unit) Capsule 50 mcg PO DAILY Discontinued aspirin 81 mg tablet,delayed release (DR/EC) 81 mg PO DAILY Follow up/Referrals: Hui Marin MD [Primary Care Provider] - Diet/Activity/Treatments Diet: Carb-consistent/Diabetic and Low-cholesterol Visit Report/Discharge Packet Stand Alone Forms: Patient Portal/API, Stroke Signs & Symptoms Discharge Data Primary Care Provider: Hui Marin
[2022-08-28 12:00] VITALS: BP 170/62; BP 188/81; PULSE 82; PULSE 84; RESP 17; TEMP 35.6; O2SAT 100
[2022-08-28 12:01] VITALS: BP 170/62; PULSE 84
[2022-08-28] MEDS: lisinopriL 20 MG TABLET 40 MG PO (12:01)
--- NOTE | 2022-08-28 12:08 | PT.IIE ---
Current Diagnoses Cerebral infarction, unspecified (08/26/22) Surgical History (Last Reviewed 08/27/22 @ 15:27 by Hui Marin MD) Anesthesia H/O vaginal hysterectomy History of hernia repair (~1988) History of tonsillectomy (~1971) History of tubal ligation (~1978) Tumor (~1965) Medical History (Last Reviewed 02/26/22 @ 19:42 by Madi Spicer DO) Acid reflux Allergies (~1962) Anxiety (~2017) Asthma (~2018) Benign familial tremor (~1964) Bronchitis Chicken pox (~1962) H/O vaginal delivery Measles (~1963) Mumps (~1958) POP-Q stage 2 cystocele Vaginal vault prolapse after hysterectomy Wears dentures Physical Therapy Inpatient Evaluation/Re-Eval M1 PT/OT-IP Prior Functional Status Start: 08/28/22 11:58 Freq: Status: Active Protocol: Document 08/28/22 11:59 BC (Rec: 08/28/22 12:08 [id number]) Medical Review Prior Functional Status Medical History Reviewed Yes Communication Independent Mobility and Gait Independent Activities of Daily Living and IADL's Independent Prior Functional Level (Other details) 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 Enjoy [employer] work. M2 PT-IP Current Condition Start: 08/28/22 11:58 Freq: Status: Active Protocol: Document 08/28/22 11:59 BC (Rec: 08/28/22 12:08 [id number]) Physical Therapy Current Condition Current Condition Evaluation Date 08/28/22 Treatment Diagnosis CVA Onset Date 08/26/22 M3 PT-IP Subjective Start: 08/28/22 11:58 Freq: Status: Active Protocol: Document 08/28/22 11:59 BC (Rec: 08/28/22 12:08 [id number]) Subjective Physical Therapy Visit Type Type Initial Evaluation Visit Start Time 09:50 Visit Stop Time 10:20 Total Visit Minutes 30 Physical Therapy Visit Comments Patient Comments Pt states she only notices difficulty with her speech. No difficulty with extremities. Patient Goals Pt wants to go home Therapy Pain Assessment Pain When Pain Assessed At Rest Pain Present Pain Present Denied Pain M4 PT-IP Mobility and Gait Start: 08/28/22 11:58 Freq: Status: Active Protocol: Document 08/28/22 11:59 BC (Rec: 08/28/22 12:08 BC [id number]) PT-Bed Mobility Assessment Rolling Level of Assist Independent Supine to Sit Supine to Sit Independent Sit to Supine Sit to Supine Independent Scooting Scooting to Edge of Bed Independent PT-Transfer Assessment Sit to and From Stand Sit to and from Stand Independent Equipment Transfer Assistive Device None Transfers Transfer Destination Bed Transfer Technique Stand Pivot Transfer Ability Level of Assist Independent Gait Assessment Gait Gait Assistance Required: Independent Distance (Feet) 250 Assistive Devices Assistive Device Gait Belt Gait Deviations General Gait Pattern Antalgic Factors Limiting Gait Function Factors Limiting Gait Function Decreased Strength Comments Gait Comments Gait is very functional however slight weakness RLE ankle DF. Unable to heel walk RLE. Able to toe walk. Short form DGI score is 1212. Stair Climbing Assessment Evaluation Level of Assist On Stairs Independent Devices Stair Climbing Assistive Devices Left Railing,Right Railing Technique/Endurance Stair Climbing Direction Ascend and Descend Stair Climbing Technique Step Over Step Number of Steps Climbed 3 Query Text: Stair Climbing Set # Repetitions (reps) 1 PT-Balance Assessment Sitting Balance and Reactions Static Sitting Balance Ability Normal Dynamic Sitting Balance Ability Normal Standing Balance and Reactions Static Standing Balance Ability Normal Dynamic Standing Balance Ability Normal Comments Other Balance Tests/Deviations/Treatment Short Form DGI 12 : M5 PT-IP Objective Assessments Start: 08/28/22 11:58 Freq: Status: Active Protocol: Document 08/28/22 11:59 BC (Rec: 08/28/22 12:08 [id number]) Orientation Orientation/Cognition Level of Alertness Alert Orientation Name,Date,Place,Situation Language Function Ability Expressive Aphasia Safety Awareness Understands Safety Issues Comments Pt reports not recognizing RUE deficits found on PT evaluation. Spouse and therapist educating Pt on findings. Gross Range of Motion Upper Extremity ROM Assessment Within Functional Limits Lower Extremity ROM Assessment Within Functional Limits Strength Upper Extremity Strength Assessment Right Impaired Shoulder 4/5 Elbow 4/5 Wrist 4/5 Lower Extremity Strength Assessment Right Impaired Hip 5/5 Knee 5/5 Ankle 4/5 ankle DF only Coordination Assessment Gross Coordination Gross Coordination Impaired Assessment Finger to Nose Test Minimal Impairment Pronation/Supination Test Normal Performance Foot Tapping Test Normal Performance Heel on Bailey Test Normal Performance Coordination Comments RUE + pronator drift. Slow and uncoordinated finger to nose RUE. Intact rapid alternating BUE/ BLE and BLE heel to bailey. Sensation Assessment Sensation Gross Sensation WNL Light Touch Intact Proprioception (Position) Intact Muscle Tone Muscle Tone WNL Yes M6 PT-IP Treatment Start: 08/28/22 11:58 Freq: Status: Active Protocol: Document 08/28/22 11:59 BC (Rec: 08/28/22 12:08 [id number]) Physical Therapy Treatment Education Education Provided Safety Other Treatments Other Treatment Performed Educated on findings of RUE coordination/motor control. She is R hand dominant. Encouraged her and spouse to continue using RUE for all prior tasks though they may feel clumsy/slower. M7 PT-IP Assessment and Plan Start: 08/28/22 11:58 Freq: Status: Active Protocol: Document 08/28/22 11:59 BC (Rec: 08/28/22 12:08 [id number]) PT Summary Assessment and Plan Potential Rehabilitation Potential Excellent Status of Condition at Evaluation Stable Summary Impairments Coordination Progress Towards Goals Safe For Discharge Assessment Summary Pt admitted with slurred speech and facial droop. MRI + for acute or subacute L globus pallidus infarct. Spouse present throughout eval. Pt and spouse report her PLOF as fully independent. Her CLOF is still independent with mobility and observed feeding/ LE dressing. She does have slight RUE deficits including coordination and strength impairments. Her RLE is rather intact with regards to strength and motor contorl. Her gait pattern is WNL but there is some fatigable RLE foot drop with heel walking. Recommend discharge home with spouse assist and HHPT/OT assessments. Frequency of Treatment Frequency Of Treatment Discharge Recommendations To Nursing Amount of Assist Needed Independent,Standby Assistance Discharge Recommendations PT Discharge Recommendations Home Health Transportation Needs at Discharge Private Vehicle
--- NOTE | 2022-08-28 12:59 | CM.DPC ---
DCP Discharge Home Per MD, pt is medically stable to d/c home today and no identified barriers to discharge. Per Rn, pt has been ambulating steady and ST eval yesterday. SW confirmed with MD they they do not feel pt has any SW needs at this time. Plan: Patient to d/c home today via spouse POV and outpt f/u after discharge and no further SW needs at this time. CÉSAR Young
== END 2022-08-28 13:02 | disposition home or self-care (01) | DRG 66 ==
LOC: ED 22:25 → AC 08-27 12:03
PROVIDERS: Admitting Provider Family Medicine; Emergency Provider Emergency Medicine; PCP Family Medicine; Referring Provider Emergency Medicine; Visit Provider Family Medicine
DX: I63.9 Cerebral infarction, unspecified (principal); I10 Essential (primary) hypertension; E78.5 Hyperlipidemia, unspecified; E11.9 Type 2 diabetes mellitus without complications; K21.9 Gastro-esophageal reflux disease without esophagitis; R47.81 Slurred speech; R29.702 NIHSS score 2; R29.704 NIHSS score 4; Z20.822 Contact with and (suspected) exposure to COVID-19; Z79.84 Long term (current) use of oral hypoglycemic drugs
CPT/HCPCS: 36415; 70450; 70496; 70498; 70551; 71045; 80048; 80053; 80061; 80305; 80320; 81003; 82550; 82962; 83735; 84443; 84484; 85025; 85610; 85730; 87635; 92523; 93005; 93306; 97161; 97530; 99285; C9803; G0378; J1815; J2060; Q9967

== ENCOUNTER 2022-09-06 13:31 | Outpatient (RCR) | payer MEDICARE, OTHER, SELFPAY ==
[2022-08-26 23:32] VITALS: BMI 21.9
--- NOTE | 2022-09-06 15:55 | PT.OIE ---
Current Diagnoses Cerebral infarction, unspecified (09/06/22) Past Medical History (Last Reviewed 02/26/22 @ 19:42 by Madi Spicer DO) Acid reflux Allergies (~1962) Anxiety (~2018) Asthma (~2019) Benign familial tremor (~1964) Bronchitis Chicken pox (~1962) H/O vaginal delivery Measles (~1963) Mumps (~1958) POP-Q stage 2 cystocele Vaginal vault prolapse after hysterectomy Wears dentures Past Surgical History (Last Reviewed 08/27/22 @ 15:27 by Hui Marin MD) Anesthesia H/O vaginal hysterectomy History of hernia repair (~1988) History of tonsillectomy (~1971) History of tubal ligation (~1978) Tumor (~1965) Visit Care Team Role Provider Type Hui Marin MD Attending Provider Physician Family Provider Primary Care Provider Referring Provider Specialty: Family Practice Address: [address] [place] [address], [facility] Email: [email or web address] Physical Therapy Initial Evaluation PT-OP-A Visit Information Start: 09/06/22 12:03 Freq: Status: Active Protocol: Document 09/06/22 13:50 [facility] (Rec: 09/06/22 14:25 [facility] [id number]) Out-Patient Physical Therapy Visit Information Visit Information Visit Type Initial Evaluation Visit Start Time 13:50 Visit Stop Time 14:25 Total Visit Minutes 40 Visit Number 1 PT-OP-B Current Condition Start: 09/06/22 12:03 Freq: Status: Active Protocol: Document 09/06/22 13:50 AMH (Rec: 09/06/22 14:25 [facility] [id number]) Current Condition History of Current Condition Onset Date 08/26/22 Current Complaints pt has no complaints at this time but would like a PT work up following CVA History of Current Condition Pt reports she woke up August 26 and she could not talk, she went to the ER and was admitted to the hospital x 2 nights. Speech impairment was her primary complaint but after 2 days this pretty much resolved. Her notes she saw a speech therapist in the hospital who told her she had impairments on the right side of her face with drooping . She denies any difficulty with her speech but will be seeing a speech therapist for consult. Pt notes she goes for a walk every day and her walks with her. Marlene notes no difficulty with gait. She reports being able to complete all usual ADL and feels she does not have any limitations at this time. PT ER documentation pt suffered a left basil ganglia infarct Prior Treatments and Tests woke up August 26 and she could not talk, she went to the ER and was admitted to the hospital x 2 nights. Speech impairment was her primary complaint Pt notes she goes for a walk every day and her walks with her. The CVA was on the left side and did effect the right side of her face. 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 and this changed her equilibrium in 1966 Treatment Goals Patient/Caregiver Goals pt has no goals at this time as she is I with ADL's PT-OP-E Functional Tests Start: 09/06/22 12:03 Freq: Status: Active Protocol: Document 09/06/22 13:50 [facility] (Rec: 09/06/22 15:45 [facility] [id number]) Functional Tests Dynamic Gait Index (DGI) Score 22 DGI Impairment Rating 1 to <20% Impaired (Score 20- 23) PT-OP-G Mobility & Gait Start: 09/06/22 12:03 Freq: Status: Active Protocol: Document 09/06/22 13:50 [facility] (Rec: 09/06/22 15:47 [facility] [id number]) OP Mobility Evaluation Bed Mobility Rolling IND Supine to and from Sit IND Transfers Sit to Stand IND Bed to Chair Transfers IND Car Transfers IND OP Gait Assessment Gait Gait Assistance Required: Independent Distance (Feet) 300 Able to Maintain Weight Bearing Status Yes During Gait Gait Deviations General Gait Pattern Within Normal Limits Comments Gait Comments pt demonstrates minor disturbances to her gait pattern with head turns, no loss of balance PT-OP-H Neuro Start: 09/06/22 15:47 Freq: Status: Active Protocol: Document 09/06/22 13:50 [facility] (Rec: 09/06/22 15:48 [facility] [id number]) Sensation Evaluation Gross Sensation Gross Sensation WNL PT-OP-M Strength Start: 09/06/22 12:03 Freq: Status: Active Protocol: Document 09/06/22 13:50 [facility] (Rec: 09/06/22 15:45 [facility] [id number]) Hip Strength Hip Manual Muscle Testing Right Flexion (L2) 5 Normal Extension (S1) 5 Normal Abduction 5 Normal Adduction 5 Normal External Rotation 5 Normal Internal Rotation 5 Normal Left Flexion (L2) 5 Normal Extension (S1) 5 Normal Abduction 5 Normal Adduction 5 Normal External Rotation 5 Normal Internal Rotation 5 Normal Ankle/Foot Strength Ankle and Foot Manual Muscle Testing Right Dorsiflexion (L4) 5 Normal Plantarflexion (S1) 5 Normal Inversion 5 Normal Eversion (S1) 5 Normal Left Dorsiflexion (L4) 5 Normal Plantarflexion (S1) 5 Normal Inversion 5 Normal Eversion (S1) 5 Normal PT-OP-Q Treatments Start: 09/06/22 12:03 Freq: Status: Active Protocol: Document 09/06/22 13:50 [facility] (Rec: 09/06/22 15:51 [facility] [id number]) Therapeutic Exercises Supine Exercises walking with with head turns Comments pts to work on head turns with gait on their walks single leg stance Reps/Minutes hold 30 sec 3-4 reps at counter top standing tandem stance at counter top Reps/Minutes hold 30 sec with hands at counter top PT-OP-T Assessment and Plan Start: 09/06/22 12:03 Freq: Status: Active Protocol: Document 09/06/22 13:50 AM[facility] (Rec: 09/06/22 15:45 [facility] [id number]) Physical Therapy Assessment Assessment Summary Assessment Marlene is a 67 year old female who suffered a left basal ganglie acute/subacute infarct on 08/26/22. In the hospital she was found to have slurred speech and some word finding difficulty. She was ambulature but did have some right sided UE proprioceptions issues. She was discharged on day two from the hospital. She presents today with her . She is ambulatory without an asstive device. Marlene reports at this time she is able to perform all her usual ADL's and she feels she has no deficits. With exam today her strength was WFL B for UE/LE. With gait and balance she demonstrated minor gait deviations with head turns with gait. She was able to maintain balance with feet together eyes open and eyes closed. She was able to balance single leg stance but required hand hold for greater than 10 seconds. Per pts she did have a tumor removed from her neck many years ago and her equilibruim has been effected from this. Both Marlene and her feel the small gait deviations she is experiencing with head turns are her baseline. She was offered to do some balance training but pt declined. She notes she is not feeling any deficits and will continue to walk with her daily. Pt was given balance exercises as a home program and her will work on this with her for home . At this point in time Marlene will be discharged from PT Physical Therapy Plan Discharge Physical Therapy Discharge Reasons Patient Request Discharge Comments pt feels independent with all ADL's at home and does not report any current deficits.
--- NOTE | 2022-09-06 15:55 | PT.OPPOC ---
Physical, Occupational & Speech Therapy At [facility] Current Diagnoses Cerebral infarction, unspecified (09/06/22) Visit Care Team Role Provider Type Hui Marin MD Attending Provider Physician Family Provider Primary Care Provider Referring Provider Specialty: Family Practice Address: [address] [place] [address] [place], [address] Email: [email or web address] Plan Of Care PT-OP-T Assessment and Plan Start: 09/06/22 12:03 Freq: Status: Active Protocol: Document 09/06/22 13:50 AMH (Rec: 09/06/22 15:45 AMH [id number]) Physical Therapy Assessment Assessment Summary Assessment Marlene is a 67 year old female who suffered a left basal ganglia acute/subacute infarct on 08/26/22. In the hospital she was found to have slurred speech and some word finding difficulty. She was ambulatory but did have some right sided UE proprioception issues. She was discharged on day two from the hospital. She presents today with her . She is ambulatory without an assistive device. Marlene reports at this time she is able to perform all her usual ADL's and she feels she has no deficits. With exam today her strength was WFL B for UE/LE. With gait and balance she demonstrated minor gait deviations with head turns with gait. She was able to maintain balance with feet together eyes open and eyes closed. She was able to balance single leg stance but required hand hold for greater than 10 seconds. 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 Both Marlene and her feel the small gait deviations she is experiencing with head turns are her baseline. She was offered to do some balance training but pt declined. She notes she is not feeling any deficits and will continue to walk with her daily. Pt was given balance exercises as a home program and her will work on this with her for home . At this point in time Marlene will be discharged from PT Physical Therapy Plan Discharge Physical Therapy Discharge Reasons Patient Request Discharge Comments pt feels independent with all ADL's at home and does not report any current deficits. Electronically Signed by: Paty Terrell, PT 09/06/22 1806 If you are in agreement with this Plan of Care, please return a signed and dated copy. I have reviewed this Plan of Care and certify that the skilled therapy services above are required to meet the patient?s needs. Physician Signature Date Printed Name and Credentials Clinical Instructor Signature Printed Name and Credentials
== END 2022-09-07 10:16 | disposition home or self-care (01) ==
LOC: PHYS 13:31
PROVIDERS: Absent Provider Family Medicine; Family Provider Family Medicine; PCP Family Medicine; Referring Provider Family Medicine; Visit Provider Family Medicine
DX: I63.9 Cerebral infarction, unspecified (principal)
CPT/HCPCS: 97110; 97161

== ENCOUNTER 2022-09-13 10:10 | Outpatient (RCR) | payer MEDICARE, OTHER, SELFPAY ==
[2022-08-26 23:32] VITALS: BMI 21.9
--- NOTE | 2022-09-13 11:37 | OT.OP.DC ---
Visit Care Team Role Provider Type Hui Marin MD Attending Provider Physician Family Provider Primary Care Provider Referring Provider Address: [address] [place] [address], [address], [place], [address] Email: [email or web address] Outpatient OT Outpatient Adult Evaluation Start: 09/13/22 11:20 Freq: Status: Active Protocol: Document 09/13/22 11:20 AMS (Rec: 09/13/22 11:36 AMS [id number]) General Information - Adult Visit Information Visit Number 07/05 Plan of Care Dates Eval Only Insurance Information Medicare Session Time Visit Start Time 10:30 Visit Stop Time 11:00 Total Visit Minutes 30 Setting Treatment Setting Outpatient Care Visit Type Note Type Initial Evaluation Assessment/Plan Assessment Treatment Assessment Marlene is a 67 year-old right hand dominant female referred to outpatient OT secondary to recent stroke. Per medical records, Marlene reported waking up August 26 w / inability to talk and thus, went to ER. She was admitted to the hospital and stayed x 2 nights. Speech/R facial droop were main concerns reported. Marlene has been evaluated and discharged by both outpatient PT and CREDIT REVIEW OFFICER. Medical history is significant for HTN, hyperlipidemia, type 2 diabetes, heart disease, blood pressure monitoring, and macular degeneration. Marlene was accompanied by her spouse to evaluation; she resides w/ spouse locally who is retired . She does not have a stacker driver's license; does the driving. No indication of pain /discomfort on Pain Assessment Grid. Marlene arrived ambulating without mobility AE ; denial of dizziness w/ reaching to floor/shoes. Bilateral UE AROM within functional limits; able to reach above head, touch top/ back of head, lower back. Independent w/ dressing and undressing w/ ability to manage earrings on own. Marlene is independent w/ toileting, bathing (use of tub ), g/h, feeding, phone use, and meal preparation. She denied any loss of sensation of UEs. She was able to oppose thumb to each digit pad w/ EO and w/ EC w/ increased time needed for eyes closed. (+) ability to symmetrically coordinate w/ hand/forearm flip w/ no observed midline shift of UEs infront and/or above head. Marlene did complete the 9-HPT slightly slower w/ her dominant R hand (36.7 seconds versus 31.5 seconds). However, she denies any difficulties w/ completing any fine motor tasks/ functional tasks/meaningful tasks in the home w/ spouse in agreement. Thus, recommend d/ c from outpatient OT at this time. Plan Patient Recommendations Discharge from Occupational Therapy Functional Wrist/Hand Scan Hand Side Sensory Assessment Sensory Profile2
== END 2022-09-14 15:20 | disposition home or self-care (01) ==
LOC: OT 10:10
PROVIDERS: Absent Provider Family Medicine; Family Provider Family Medicine; PCP Family Medicine; Referring Provider Family Medicine; Visit Provider Family Medicine
DX: I63.9 Cerebral infarction, unspecified (principal)
CPT/HCPCS: 97165

== ENCOUNTER → 2022-09-20 08:53 | Outpatient (CLI) | payer MEDICARE, OTHER, SELFPAY ==
[2022-08-26 23:32] VITALS: BMI 21.9
--- NOTE | 2022-09-29 16:59 | DIAB.MNT ---
Initial Diabetes Medical Nutrition Therapy Assessment Name: Marlene Meadows Date: 09/20/22 Time: [id number] Dx: Type II Diabetes Provider: Tania Rosario presents for initial diabetes visit with her , Pepe. States she has had Dm for 12+ years. Endorses FH of Dm with paternal grandmother. Endorses excessive thirst and urination. States her health has been a point of stress, dealing with bladder issues (EMR indicates vaginal prolapse) and macular degeneration. States she has had extremities tingling, which has improved. States she originally thought this was r/t a low BG. Would eat to alleviate symptoms. Today she is unclear of her BG goals and usually does not make it a point to wash hands prior to checks. Keeps nutella and pretzels with her on walks for hypo prevention. Diet Recall: 11a: 2 chobani yogurts 3p: fruit (orange) 5p: 1c soup with veg, potatoes, chx or beef OR baked potato with chx and veggies, sometimes corn x 1/3c 10p: 1 fruit or 2/3c vanilla ice cream Beverages: 6x 16oz water, coffee with cream, +/- 6oz root beer (20g CHO) Anthropometrics: Ht: 4'11 Wt: 115# reported Weight history: reports increase to 130# since health complications, ie vaginal prolapse. Lost 15# intentionally recently due to increased walking Physical Activity: Walking 30 min daily Self-Monitoring Blood Glucose: No meter or log book today. Reports checking 2x pe rday: FBG 15-180mg/dl and 1 hour pc dinner mid 200 to over 300mg/dl. Reports a low of 40mg/dl years ago and needing to call EMS. No recent lows. Diabetes Medications: Metformin 1000mg am and 1500mg pm Glimepiride 2mg (increased last week from 1mg) Pertinent Labs: HgA1c 10.2% 05/2022 Past Medical History: (Last Reviewed 02/26/22 @ 19:42 by Madi Spicer DO) Acid reflux Allergies (~1962) Anxiety (~2018) Asthma (~2019) Benign familial tremor (~1964) Bronchitis Chronic Chicken pox (~1962) H/O vaginal delivery Measles (~1963) Mumps (~1958) POP-Q stage 2 cystocele Vaginal vault prolapse after hysterectomy Wears dentures Upper Nutrition Rx: Carbohydrates: Meal:30-45g CHO Snack:15-30g CHO Nutrition Diagnosis: - Food and nutrition knowledge deficit r/t minimal nutrition education aeb pt report and not clear on how to tx a low BG - Predicted Excessive CHO intake r/t soda intake aeb diet recall and pt report Intervention: This participant was very receptive. Provided appropriate educational handouts. Discussed the following topics: Completed intake assessment. Discussed barriers to care. Importance of self-monitoring, how often, and when to check. Suggested checking at different times to evaluate meals Plate Method, pairing carbs and protein for meals and snacks Rule of 15 for lows s/s of hypo- and hyperglycemia SMBG technique and washing hands Role of physical activity and following provider guidelines for safety Created SMART goals for patient self-care and success. Goals: wash hands prior to SMBG try some dinners without soda and check BG Aim for 1c carbs at meals Add protein to snacks Follow-up: [facility] follow-up in 4 weeks June Urbano RDN, SASHA Certified Diabetes Care and Dive Supervisor P: [phone] Thank you for this referral
== END ==
PROVIDERS: Absent Provider Family Medicine; Family Provider Family Medicine; PCP Family Medicine; Referring Provider Family Medicine; Visit Provider Family Medicine
DX: E11.9 Type 2 diabetes mellitus without complications (principal); Z71.3 Dietary counseling and surveillance; Z79.84 Long term (current) use of oral hypoglycemic drugs
CPT/HCPCS: 97802

== ENCOUNTER → 2022-10-26 14:36 | Outpatient (CLI) | payer MEDICARE, OTHER, SELFPAY ==
[2022-08-26 23:32] VITALS: BMI 21.9
--- NOTE | 2022-10-26 16:00 | DIAB.MNTFU ---
Follow-up Diabetes Medical Nutrition Therapy Assessment Name: Marlene Meadows Date: 10/26/22 Time: 3-330p Dx: Type II Diabetes Marlene presents for diabetes visit with , Pepe. States she would like for today to be our last visit due to having too many medical appointments. Stage of change seems to be somewhat a barrier. Very motivated to make physical activity part of her day, but nutrition changes seem more of a challenge (precontemplative stage). Limited vegetable intake per diet recall. He and Pepe describe h/o Marlene not liking many vegetables. Does enjoy green beans and carrots. States she tried cutting out root beer but feels it did not make a difference in blood sugars due to the small portions she drinks. Two meals per day and one snack often in goal for carbohydrates; however, evening snack may be high in carb r/t ice cream x 1c with chocolate syrup. Not in a stage of change to want to decrease portion. States the syrup is in small portion and not every night. Other HS snacks: yogurt with fruit or fresh fruit. Not using butter, uses substitute. Fish 1x per month due to finances, does not like shellfish. Reports limiting sodium intake. Using herbs/spices to flavor foods. Declined carb counting review. States she has tried that before. Prefers to manage DM with PCP and meds versus lifestyle per report. Anthropometrics: Ht: 4'11 Wt: 115# reported Physical Activity: Walking 60 min daily more consistently Self-Monitoring Blood Glucose: Brought log book of BG. All readings remain elevated, though reportedly improving with higher dose of glimepiride (2mg BID). Evening readings 1-2 hours postprandial. Date Pre Post Pre Post Pre Post 10/14 179 257 10/15 167 222 10/16 149 221 10/17 240 355 10/18 314 276 10/19 10/20 179 273 10/21 268 10/12 181 10/23 297 10/24 193 10/25 221 Diabetes Medications: Metformin 1000mg am and 1500mg pm Glimepiride 2mg BID Pertinent Labs: HgA1c 10.2% 05/2022 Past Medical History: (Last Reviewed 02/26/22 @ 19:42 by Madi Spicer DO) Acid reflux Allergies (~1962) Anxiety (~2017) Asthma (~2018) Benign familial tremor (~1964) Bronchitis Chronic Chicken pox (~1962) H/O vaginal delivery Measles (~1963) Mumps (~1958) POP-Q stage 2 cystocele Vaginal vault prolapse after hysterectomy Wears dentures Upper Nutrition Rx: Carbohydrates: Meal:30-45g CHO Snack:15-30g CHO Nutrition Diagnosis: - Food and nutrition knowledge deficit r/t limited previous MNT for Dm or heart health aeb pt report - Predicted Excessive CHO intake r/t HS dessert choice and soda intake and stage of change precontemplative aeb diet recall and pt report Intervention: This participant was very receptive. Provided appropriate educational handouts. Discussed the following topics: Blood sugar review and trends. Impact of food and DM on results. Plate Method, impact of macronutrients on blood sugar Heart health nutrition: fats, fiber, and sodium Budget friendly fish options Ways to increase vegetable intake in a way she enjoys Physical activity plan and progress Created SMART goals for patient self-care and success. Goals: wash hands prior to SMBG- continue try some dinners without soda and check BG- met Aim for 1c carbs at meals- not met Add protein to snacks- not met Contact provider in the next week if BG continue to be elevated- new Consider budget friendly fish options- new Add vegetables to dinner daily- new Follow-up: [facility] follow-up prn per pt request. Marlene would benefit from follow-up however she is feeling stretched thin with multiple health care visits. Provided my contact information and encouraged her and Pepe to call or message with any follow-up questions or needs. June Urbano RDN, SASHA Certified Diabetes Care and Wrecking Mechanic P: [phone] Thank you for this referral
== END ==
PROVIDERS: Family Provider Family Medicine; PCP Family Medicine; Referring Provider Family Medicine; Visit Provider Family Medicine
DX: E11.9 Type 2 diabetes mellitus without complications (principal); Z71.3 Dietary counseling and surveillance; Z79.84 Long term (current) use of oral hypoglycemic drugs
CPT/HCPCS: 97803

== ENCOUNTER → 2023-10-26 14:40 | Outpatient (CLI) | payer MEDICARE, OTHER, SELFPAY ==
[2022-08-26 23:32] VITALS: BMI 21.9
== END ==
LOC: PHYS 14:43
PROVIDERS: Family Provider Family Medicine; PCP Family Medicine; Referring Provider Family Medicine; Visit Provider Family Medicine
DX: G56.02 Carpal tunnel syndrome, left upper limb (principal); M75.82 Other shoulder lesions, left shoulder
CPT/HCPCS: 95886; 95909

== ENCOUNTER → 2023-11-14 11:03 | Outpatient (RCR) | payer MEDICARE, OTHER, SELFPAY ==
[2022-08-26 23:32] VITALS: BMI 21.9
--- NOTE | 2022-09-08 17:18 | ST.OP.ACL ---
Visit Care Team Role Provider Type Hui Marin MD Attending Provider Physician Family Provider Primary Care Provider Referring Provider Specialty: Family Practice Address: [address] [place] [address], [facility] [place], [address] Email: [email or web address] Adult Cognitive Linguistic Evaluation ENGRAVER COPPERPLATE Adult Cognitive Linguistic Eval Start: 09/08/22 16:31 Freq: Status: Active Protocol: Document 09/08/22 16:52 CG (Rec: 09/08/22 16:55 CG [id number]) Adult Cognitive Linguistic Evaluation Session Time Visit Start Time 16:32 Visit Stop Time 16:51 Total Visit Minutes 19 Visit Information Visit Number 1 Referral Referring Provider Hui Marin Reason for Referral Dysarthria 2/ CVA Setting Assessment Location Outpatient Care Visit Type Note Type Initial evaluation Patient Information Identification Type Name,Wristband Patient History Pt is a 67-year-old female who was recently admitted to this hospital due to a stroke. She was discharged from the hospital just under two weeks from the present evaluation. Patient has a past medical history of hypertension, hyperlipidemia and type 2 diabetes on metformin. According to hospital records, on the date of admission the patient awakened about 9:00 a.m. and had some slurred speech and just thought that she was tired. In the evening she tooka nap and she awakened and had more significant slurred speech and difficulty finding words. She was then brought to the emergency department and was admitted due to suspected CVA. During her stay as an inpatient, she was seen by the current evaluating therapist for an inpatient evaluation. As of the previous evaluation on 08/27, she was oriented to all concepts and showed no difficulties with confrontation naming, following directions, or engaging in conversation. Pt was deemed to be 90-100% intelligible using slowed rate . Diadokokinetic task was moderately slowed/disorganized . No overt s/s dysphagia were present. At that time, ENGRAVER COPPERPLATE provided oral motor exercises as well as speech exercises and compensatory strategies for dysarthria, which the pt retained. At this present evaluation, pt and state that her speech continues to improve since discharge and she has become increasingly intelligible. Language(s) Spoken in the Home Micronesian Education Level High School Hearing Hearing Level Normal Previous Therapy Previous Speech-Language Therapy Yes: Pt was seen inpatient at this hospital by evaluating therapist History of Therapy Per inpatient report from inpatient stay at this facility, Pt presents with dysarthric speech characterized by imprecise articulation, innacurate articulation (phoneme substitutions), and hypernasality...Pt's language skills appear WFL for syntax, semantics, and pragmatics. She is able to hold a conversation and is 90-100% intelligible with slow rate. Confrontation naming was intact and pt was oriented to purpose, place, person, and time. ENGRAVER COPPERPLATE provided handout of exercises to improve speech intelligbility. Subjective Patient Report Pt did not report any pain. She stated I'm doing fine when asked if she was improved following her discharge. She stated people could undertstand her well and she did not have any concerns about her speech. Mental Status Alert,Responsive,Cooperative Assessment Oral Motor Examination Completed Yes Results Tongue: Lingual agility and strength were mostly WNL; however, mildly reduced strength and ROM on R side was observed in lingual press task, consistent with OME completed during inpatient stay. Jaw: Mandibular strength and ROM appeared WNL. Lips: Labial agility and ROM were WFL during pucker-smile task. DDK: Pt sucessfully completed diadokokinetic (/pataka/) exercise with mildly reduced rate. No errors in motor sequencing were observed. Overall, this is an improvement from her inpatient evaluation. This is consistent with spouse report that her speech intelligibility is improving. Informal Assessment Receptive Language Normal Yes Expressive Language Normal Yes Pragmatic Language Normal Yes Speech Normal No Speech Impairment(s) Imprecise articulation,Slow speech rate,Hypernasality Cognition Normal Yes Findings/Results Language Function Within functional limits Cognitive Function Within normal limits Findings Pt continues to present with dysarthria characterized by imprecise articulation, particularly for plosive consonants. However, she is intelligible and states she has no difficulty communicating. ENGRAVER COPPERPLATE reviewed exercises as provided during inpatient stay, which pt's spouse still has at home. Recommended continuing these exercises. Pt stated she had no questions about how to complete exercises. She states she does not want to come to speech therapy if she doesn't have to, and declines treatment at this time. ENGRAVER COPPERPLATE recommended continue with home exercise program and monitor for changes in speech/language /swallowing. Cognitive Communication Deficits Self-awareness of Cognitive- Predictive awareness (able to Communication Deficits predict problem; impact of impairments) Impact on Functioning Activity Limits/Particip.Rest. Mild: Interpersonal Interactions Community Safety Risks Mild: Reacting to Emergency Prognosis Prognosis Good Based on Cognitive status,Family support,Duration of symptoms/ severity Plan of Care Speech-Language Treatment No Patient/Caregiver Education Described results of evaluation,Patient expressed understanding of evaluation, Family/caregivers expressed understanding of evaluation Discharge Recommendations Home
== END | disposition home or self-care (01) ==
LOC: SP 09-08 16:13
PROVIDERS: Absent Provider Family Medicine; Family Provider Family Medicine; PCP Family Medicine; Referring Provider Family Medicine; Visit Provider Family Medicine
DX: I63.9 Cerebral infarction, unspecified (principal)
CPT/HCPCS: 92522

== ENCOUNTER 2024-01-11 19:09 | Emergency (ER) | payer MEDICARE, OTHER, SELFPAY ==
[2022-08-26 23:32] VITALS: BMI 21.9
[2024-01-11] VITALS (11 sets, daily range): BP systolic 153–210; BP diastolic 70–97; PULSE 81–99; RESP 16–18; TEMP 36.8–37.1; O2SAT 97–100; BMI 23.2
--- NOTE | 2024-01-11 19:21 | DI.RAD.S_ITS ---
PROCEDURE: XR HIP W PEL IF DONE RT 2V INDICATIONS: atraumatic R hip pain TECHNIQUE: AP pelvis with lateral view(s) of the right hip(s). COMPARISON: None. FINDINGS: Bones: No fractures or dislocations. Mild osteophytosis. Mild joint space narrowing. Pelvic ring appears intact. No suspicious bony lesions. Soft tissues: The visualized bowel gas pattern is normal. No suspicious soft tissue calcifications. IMPRESSION: No acute osseous abnormalities. Mild degenerative changes of the bilateral hips. Dictated by: Brian Osborn M.D. on 01/11/2024 at 19:45 Approved by: Brian Osborn M.D. on 01/11/2024 at 19:45
--- NOTE | 2024-01-11 19:44 | PC.NURSE ---
Pt c/o pain to right hip. BP 210/95. MD aware.
[2024-01-11] MEDS: TRAMADOL 50 MG TABLET PO (19:57)
--- NOTE | 2024-01-11 20:11 | ED_ITS ---
HPI - Extremity Problem General Chief complaint: Extremity Problem,Nontraumatic Stated complaint: hip px Time Seen by Provider: 01/11/24 19:10 Source: patient and family Mode of arrival: Wheelchair History of Present Illness HPI Narrative: 68-year-old female presents for atraumatic right hip pain. Patient states that she walks frequently without any issue on a normal basis. Today while walking she had severe right hip pain that began while she was walking approximately 4 hours prior to arrival. Pain is aching, constant, does not radiate. Movement makes it worse, nothing seems to make it better. Took several aspirin prior to presentation in the emergency department without improvement in pain. Denies numbness, weakness, tingling. Patient states that the pain is so bad that she thinks she may have broken her hip. Related Data Home Medications Medication Instructions Recorded Confirmed atorvastatin 40 mg tablet 40 mg PO DAILY 08/02/19 08/26/22 lisinopril 40 mg tablet 40 mg PO DAILY 08/02/19 08/26/22 metformin 500 mg tablet 1,000 mg PO BID 08/02/19 08/26/22 cholecalciferol (vitamin D3) 25 50 mcg PO DAILY 12/30/19 08/26/22 mcg (1,000 unit) capsule (Vitamin D3) multivitamin 1 tab PO DAILY 12/30/19 08/26/22 Previous Rx's Medication Instructions Recorded aspirin 325 mg tablet 325 mg PO DAILY #90 tabs 08/28/22 tramadol 50 mg tablet 50 mg PO Q8H PRN pain #10 tabs 01/11/24 Allergies Allergy/AdvReac Type Severity Reaction Status Date / Time garlic AdvReac Intermediate acid reflux Verified 01/11/24 19:16 Influenza Virus Vaccines AdvReac Mild Verified 01/11/24 19:16 acetaminophen [From Tylenol] AdvReac Itching Verified 01/11/24 19:16 Patient History Medical History 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 Wears dentures Bronchitis Acid reflux Allergies (~1962) Benign familial tremor (~1964) Mumps (~1958) Measles (~1963) Chicken pox (~1962) Anxiety (~2017) Asthma (~2018) H/O vaginal delivery Surgical History Anesthesia History of tonsillectomy (~1971) History of hernia repair (~1988) History of tubal ligation (~1978) Tumor (~1965) H/O vaginal hysterectomy Family History Father Bone cancer History of heart disease Hypertension Mother History of heart disease Hypertension Stroke Brother History of heart disease Hypertension Sister History of heart disease Grandfather Suicide Social History household members: spouse Smoking Status: Never smoker alcohol intake: never Smoking Status: Never smoker alcohol intake frequency: 0-2 drinks per day Substance Use Type: does not use Exam Initial Vital Signs Initial Vital Signs: Vital Signs Temperature 98.7 F 01/11/24 19:13 Pulse Rate 99 H 01/11/24 19:13 Respiratory Rate 16 01/11/24 19:13 Blood Pressure 207/95 H 01/11/24 19:13 Pulse Oximetry 100 01/11/24 19:13 Oxygen Delivery Method Room Air 01/11/24 19:13 Const: Awake, alert, in pain, nontoxic Cardiac: regular rate, regular rhythm RESP: unlabored, clear bilaterally, no wheezing MSK: No obvious trauma, no deformity, range of motion severely limited due to pain, palpable pulses, no edema Skin: Warm, Dry, intact, no rashes Neuro: AO x3, CN II-XII grossly intact, moves all extremities Course Orders Ordered: ED Orders 01/11/24 20:58 CBC Auto Diff [Complete Blood Count AUTO DIFF] Stat CMP [Comprehensive Metabolic Panel] Stat CRP [C-Reactive Protein Quant] Stat Erythrocyte Sedimentation Rate Stat Discontinued Medications Tramadol HCl (Tramadol 50 Mg Tablet) 50 mg PO NOW ONE Stop: 01/11/24 19:53 Last Admin: 01/11/24 19:57 Dose: 50 mg Documented By: Vital Signs Vital signs: Vital Signs - 8 hr 01/11/24 22:09 01/11/24 22:10 01/11/24 22:10 Temperature Pulse Rate 90 81 Respiratory Rate Blood Pressure 190/75 H Pulse Oximetry 100 100 Oxygen Delivery Method 01/11/24 22:30 01/11/24 22:32 01/11/24 22:32 Temperature Pulse Rate 90 87 Respiratory Rate Blood Pressure 153/70 H Pulse Oximetry 99 97 Oxygen Delivery Method 01/11/24 22:58 Temperature 98.2 F Pulse Rate 87 Respiratory Rate 18 Blood Pressure 160/97 H Pulse Oximetry 98 Oxygen Delivery Method Room Air MDM - Extremity (Nontraumatic) Lab Data 01/11/24 20:58 01/11/24 20:58 Labs: Lab Results 01/11/24 Range/Units 20:58 WBC 10.6 (4.5-11.0) X10^3/uL RBC 4.67 (4.0-5.2) X10^6/uL Hgb 14.6 (12.0-16.0) g/dL Hct 41.1 (36-46) % MCV 88.0 (80-100) fL MCH 31.3 (26-34) PG MCHC 35.5 (30-36) % RDW 11.6 (11.6-14.8) % Plt Count 285 (150-400) X10^3/uL Neut % (Auto) 78.7 H (50-75) % Lymph % (Auto) 12.9 L (25-40) % [place] % (Auto) 5.2 (3-14) % Eos % (Auto) 3.1 (2-4) % Baso % (Auto) 0.1 (0-2) % Neut # (Auto) 8300 H (9288-9509) /uL Lymph # (Auto) 1400 (7286-9221) /uL [place] # (Auto) 600 (0-900) /uL Eos # (Auto) 300 (0-450) /uL Baso # (Auto) 0 (0-100) /uL ESR 3 (0-20) MM/HR Sodium 132 L (137-145) mmol/L Potassium 3.5 (3.4-5.1) mmol/L Chloride 97 L (98-107) mmol/L Carbon Dioxide 23 (22-32) mmol/L BUN 9 (7-17) mg/dL Creatinine 0.55 (0.52-1.04) mg/dL Estimated GFR > 60 (>60) mL/min BUN/Creatinine Ratio 16.4 (6-22) Glucose 169 H (80-110) mg/dL Calcium 10.0 (8.4-10.2) mg/dL Total Bilirubin 0.6 (0.2-1.3) mg/dL AST 44 H (14-36) IU/L ALT 40 H (<35) IU/L Alkaline Phosphatase 133 H (38-126) U/L C-Reactive Protein < 0.5 (<1.0) mg/dL Total Protein 7.3 (6.3-8.2) g/dL Albumin 4.8 (3.5-5.0) g/dL Globulin 2.5 (1.7-4.1) g/dL Albumin/Globulin Ratio 1.9 (1.0-2.8) Imaging Data Extremity x-ray #1: Radiologist's Impression: PROCEDURE: XR HIP W PEL IF DONE RT 2V INDICATIONS: atraumatic R hip pain TECHNIQUE: AP pelvis with lateral view(s) of the right hip(s). COMPARISON: None. FINDINGS: Bones: No fractures or dislocations. Mild osteophytosis. Mild joint space narrowing. Pelvic ring appears intact. No suspicious bony lesions. Soft tissues: The visualized bowel gas pattern is normal. No suspicious soft tissue calcifications. IMPRESSION: No acute osseous abnormalities. Mild degenerative changes of the bilateral hips. Dictated by: Brian Osborn M.D. on 01/11/2024 at 19:45 Approved by: Brian Osborn M.D. on 01/11/2024 at 19:45 CT scan - abdomen/pelvis: Radiologist's Impression: PROCEDURE: CT ABDOMEN PELVIS W CON INDICATIONS: severe r atraumatic hip pain TECHNIQUE: After the administration of intravenous contrast, axial sections acquired from the lung bases to the pubic symphysis. Coronal and sagittal reformats were performed. For radiation dose reduction, the following was used: automated exposure control, adjustment of mA and/or kV according to patient size. COMPARISON: None. FINDINGS: Image quality: Diagnostic. Lower Chest: No significant findings. ABDOMEN: Liver: No solid mass. Liver is enlarged measuring 19.4 cm with steatosis. Gallbladder: No radiopaque gallstones or wall thickening. Biliary ducts: No biliary dilation. Pancreas: No ductal dilation. Spleen: Size is within normal limits. Adrenal Glands: No adrenal nodules. Kidneys and Ureters: No hydronephrosis. No solid mass. No complex renal cystic lesion which requires follow up. Bilateral simple renal cysts. Stomach and Bowel: Normal colonic caliber, without significant wall thickening. Appendix is normal. Scattered stool. Peritoneum: No abnormal intraperitoneal fluid. No free air. Ventral Wall: No significant ventral hernia. Abdominal Nodes: No retroperitoneal or mesenteric adenopathy by size criteria. Vessels: Aorta and inferior vena cava are normal in size. PELVIS: Pelvic Organs: Unremarkable. Bladder: No bladder wall thickening, accounting for underdistention. Pelvic Nodes: No enlarged lymph nodes. Miscellaneous: No inguinal hernias are seen. Bones: No aggressive osseous abnormality. IMPRESSION: No visualized cause of visceral or osseous etiology hip pain. Dictated by: Joellen Acosta M.D. on 01/11/2024 at 22:20 Approved by: Joellen Acosta M.D. on 01/11/2024 at 22:23 [facility] Narrative Medical decision making narrative: Patient reporting severe atraumatic right hip pain, states it was so bad that she was concerned she may have broken her hip. There was no trauma, when palpating the hip joint it is not remarkably tender to palpation, however patient has severe pain with any range of motion. No neurologic deficit. Tramadol ordered for pain. X-ray imaging negative for acute findings. Still complaining of significant hip pain. Based on the patient's reported severity of the pain as well as history of uut-[id number] diabetes a CT scan will be ordered to see if there is any occult lesions. Blood work ordered. Laboratory work negative for acute findings. Inflammatory markers are not elevated at all. CT does not show any additional findings that could explain right hip pain. Patient counseled on lab and imaging findings. A short course of pain medications sent to pharmacy of choice. Patient counseled to follow up with Orthopedics if she does not notice improvement Discharge Plan Departure Patient Disposition: Home Clinical Impression: Strain of right hip Instructions: DI for Hip Pain Activity Restrictions/Additional Instructions: Your laboratory work and CT imaging showed no fracture or evidence of infection. Take anti-inflammatories for pain at home. A short course of pain medication has been sent to your pharmacy. Follow up with Orthopedic surgery if you continue to experience pain. Prescriptions: New tramadol 50 mg tablet 50 mg PO Q8H PRN (Reason: pain) Qty: 10 0RF No Action metformin 500 mg tablet 1,000 mg PO BID lisinopril 40 mg tablet 40 mg PO DAILY atorvastatin 40 mg tablet 40 mg PO DAILY multivitamin Tablet 1 tab PO DAILY cholecalciferol (vitamin D3) [Vitamin D3] 25 mcg (1,000 unit) Capsule 50 mcg PO DAILY aspirin 325 mg Tablet 325 mg PO DAILY Qty: 90 0RF Referrals: Olu Tavarez MD [Physician] - Hui Marin MD [Primary Care Provider] - Stand Alone Forms: Patient Portal/API
--- NOTE | 2024-01-11 20:42 | DI.CT.S_ITS ---
PROCEDURE: CT ABDOMEN PELVIS W CON INDICATIONS: severe r atraumatic hip pain TECHNIQUE: After the administration of intravenous contrast, axial sections acquired from the lung bases to the pubic symphysis. Coronal and sagittal reformats were performed. For radiation dose reduction, the following was used: automated exposure control, adjustment of mA and/or kV according to patient size. COMPARISON: None. FINDINGS: Image quality: Diagnostic. Lower Chest: No significant findings. ABDOMEN: Liver: No solid mass. Liver is enlarged measuring 19.4 cm with steatosis. Gallbladder: No radiopaque gallstones or wall thickening. Biliary ducts: No biliary dilation. Pancreas: No ductal dilation. Spleen: Size is within normal limits. Adrenal Glands: No adrenal nodules. Kidneys and Ureters: No hydronephrosis. No solid mass. No complex renal cystic lesion which requires follow up. Bilateral simple renal cysts. Stomach and Bowel: Normal colonic caliber, without significant wall thickening. Appendix is normal. Scattered stool. Peritoneum: No abnormal intraperitoneal fluid. No free air. Ventral Wall: No significant ventral hernia. Abdominal Nodes: No retroperitoneal or mesenteric adenopathy by size criteria. Vessels: Aorta and inferior vena cava are normal in size. PELVIS: Pelvic Organs: Unremarkable. Bladder: No bladder wall thickening, accounting for underdistention. Pelvic Nodes: No enlarged lymph nodes. Miscellaneous: No inguinal hernias are seen. Bones: No aggressive osseous abnormality. IMPRESSION: No visualized cause of visceral or osseous etiology hip pain. Dictated by: Joellen Acosta M.D. on 01/11/2024 at 22:20 Approved by: oJellen Acosta M.D. on 01/11/2024 at 22:23
[2024-01-11 21:33] LABS: Add Manual Diff / Slide Review NO; Basophils Absolute Auto 0 /uL (0-100); Basophils Percent Auto 0.1 % (0-2); Eosinophils Absolute Auto 300 /uL (0-450); Eosinophils Percent Auto 3.1 % (2-4); Hematocrit 41.1 % (36-46); Hemoglobin 14.6 g/dL (12.0-16.0); Lymphocytes Absolute Auto 1400 /uL (1100-4500); Lymphocytes Percent Auto 12.9 % (25-40); Mean Corpuscular HGB Conc 35.5 % (30-36); Mean Corpuscular Hemoglobin 31.3 PG (26-34); Monocytes Absolute Auto 600 /uL (0-900); Monocytes Percent Auto 5.2 % (3-14); Neutrophils Absolute Auto 8300 /uL (1500-7000); Neutrophils Percent Auto 78.7 % (50-75); Platelet Count 285 X10^3/uL (150-400); Red Blood Cell Count 4.67 X10^6/uL (4.0-5.2); Red Cell Distribution Width 11.6 % (11.6-14.8); White Blood Cell Count 10.6 X10^3/uL (4.5-11.0)
[2024-01-11 21:38] LABS: Alanine Aminotransferase 40 IU/L (<35); Albumin 4.8 g/dL (3.5-5.0); Albumin Globulin Ratio 1.9 (1.0-2.8); Alkaline Phosphatase 133 U/L (38-126); Aspartate Aminotransferase 44 IU/L (14-36); BUN Creatinine Ratio 16.4 (6-22); Bilirubin Total 0.6 mg/dL (0.2-1.3); Blood Urea Nitrogen 9 mg/dL (7-17); C-Reactive Protein Quant < 0.5 mg/dL (<1.0); Carbon Dioxide 23 mmol/L (22-32); Chloride 97 mmol/L (98-107); Estimated Glomerular Filt Rate > 60 mL/min (>60); Globulin 2.5 g/dL (1.7-4.1); Glucose 169 mg/dL (80-110); HEMOLYSIS < 15 (0-50); Potassium 3.5 mmol/L (3.4-5.1); Sodium 132 mmol/L (137-145); Total Protein 7.3 g/dL (6.3-8.2)
[2024-01-11 21:52] LABS: Erythrocyte Sedimentation Rate 3 MM/HR (0-20)
== END 2024-01-11 23:03 | disposition home or self-care (01) ==
PROVIDERS: Emergency Provider Emergency Medicine; Family Provider Family Medicine; PCP Family Medicine
DX: S73.101A Unspecified sprain of right hip, initial encounter (principal); Z79.899 Other long term (current) drug therapy
CPT/HCPCS: 73502; 74177; 80053; 85025; 85651; 86140; 99283; 99284; Q9967

== ENCOUNTER → 2024-03-13 13:52 | Outpatient (CLI) | payer MEDICARE, OTHER, SELFPAY ==
[2022-08-26 23:32] VITALS: BMI 21.9
--- NOTE | 2024-03-13 13:53 | DI.MG.S_ITS ---
BILATERAL DIGITAL SCREENING MAMMOGRAM 3D/2D WITH CAD: 03/13/2024 CLINICAL: Baseline exam. Routine screening. No prior exams were available for comparison. There are scattered areas of fibroglandular density (category b / 25%-50% glandular tissue). Current study was also evaluated with a Computer Aided Detection (CAD) system. There are benign calcifications in both breasts. No significant masses, calcifications, or other findings are seen in either breast. IMPRESSION: BENIGN There is no mammographic evidence of malignancy. A 1 year screening mammogram is recommended. Based on the Tyrer Cuzick model (a risk assessment model) the patient's lifetime risk is 3.6% and her 10 year risk is 2.2%. According to the ACR, ACS, and NCCN guidelines, an annual breast MRI exam along with mammogram is recommended if the patient's lifetime risk is 20% or greater. This exam was interpreted at Station ID: [id number]. NOTE: For mammograms, a report in lay terms will be sent to the patient. Approximately 15% of breast malignancies will not be visualized mammographically. In the management of a palpable breast mass, a negative mammogram must not discourage biopsy of a clinically suspicious lesion. Electronically Signed By: Mirella hatch/foreign:03/13/2024 18:18:50 letter sent: Normal Exam ACR BI-RADS Category 2: Benign [id number]
--- NOTE | 2024-03-13 13:53 | DI.RAD.S_ITS ---
PROCEDURE: XR DEXA AXIAL SKELETON INDICATIONS: DISORDERS OF BONE DENSITY COMPARISON: None. FINDINGS: Lumbar Spine: Bone mineral density 0.941 g/cm2, T score -0.1, normal. Left Hip: Bone mineral density 0.83 g/cm2, T score -0.5, normal. Left Femoral Neck: Bone mineral density 0.781 g/cm2, T score -0.6, normal. Right Hip: Bone mineral density 0.815 g/cm2, T score -1, normal. Right Femoral Neck: Bone mineral density 0.731 g/cm2, T score -1.1, osteopenia. Fracture Risk Calculation (when applicable): 10-year fracture risk of a major osteoporotic fracture 8.8% and of a hip fracture 1.1%. (T score greater or equal to -1.0 to: NORMAL) (T score from -1.1 to -2.4: OSTEOPENIA) (T score less than or equal to -2.5: OSTEOPOROSIS) IMPRESSION: Osteopenia. Follow-up guidelines as follows: Osteoporosis: Consider a repeat DEXA and Vertebral Fracture Assessment (VFA) exam in 2 years or sooner if medically necessary, to reassess this patient's status. Osteopenia: Consider a repeat DEXA in 2-3 years to reassess this patient's status, or if there is a new clinical indication. Normal: Consider a repeat DEXA in 5 years or sooner, or if there is a new clinical indication. All treatment decisions require clinical judgment and consideration of individual patient factors, including patient preferences, comorbidities, previous drug use, risk factors not captured in the FRAX model (e.g., frailty, falls, vitamin D deficiency, increased bone turnover, interval significant decline in bone density ) and possible under- or over-estimation of fracture risk by FRAX. In addition, the NOF Guide recommends that FDA-approved medical therapies be considered in postmenopausal women and men age >= 50 years with a: * Hip or vertebral (clinical or morphometric) fracture * T-score of <=-2.5 at the spine or hip * Ten-year fracture probability by FRAX of >= 3% for hip fracture or >=20% for major osteoporotic fracture. People with diagnosed cases of osteoporosis or at high risk for fracture should have regular bone mineral density tests. For patients eligible for Medicare, routine testing is allowed once every 2 years. The testing frequency can be increased to one year for patients who have rapidly progressing disease, those who are receiving or discontinuing medical therapy to restore bone mass, or have additional risk factors. Dictated by: Jose Grimes M.D. on 03/13/2024 at 16:51 Approved by: Jose Grimes M.D. on 03/13/2024 at 16:51
== END ==
LOC: MAMMO 13:52
PROVIDERS: Family Provider Family Medicine; PCP Family Medicine; Referring Provider Family Medicine; Visit Provider Family Medicine
DX: Z12.31 Encounter for screening mammogram for malignant neoplasm of breast (principal); M85.89 Other specified disorders of bone density and structure, multiple sites
CPT/HCPCS: 77063; 77067; 77080

== ENCOUNTER 2024-11-27 02:51 | Emergency (ER) | payer MEDICARE, OTHER, SELFPAY ==
[2022-08-26 23:32] VITALS: BMI 21.9
[2024-11-27] VITALS (17 sets, daily range): BP systolic 137–177; BP diastolic 61–85; PULSE 66–135; RESP 17–26; TEMP 36.4; O2SAT 94–98; BMI 23.2
--- NOTE | 2024-11-27 02:53 | DI.RAD.S_ITS ---
PROCEDURE: XR CHEST 1V INDICATIONS: Chest Pain TECHNIQUE: One view of the chest was acquired. COMPARISON: [facility], CR, XR CHEST 1V, 08/26/2022, 20:44. [facility], CR, XR CHEST 1V, 02/26/2022, 19:30. FINDINGS: Surgical changes and devices: None. Lungs and pleura: Lungs are clear. No pleural effusions or pneumothorax. Mediastinum: Mediastinal contours appear normal. Heart size is normal. Bones and chest wall: No suspicious bony lesions. Overlying soft tissues appear unremarkable. IMPRESSION: No acute cardiopulmonary abnormality is seen. There is no significant discrepancy when compared to the overnight preliminary report. Approved by: Srinivas Skinner M.D. on 11/27/2024 at 7:43
--- NOTE | 2024-11-27 03:00 | ED.GENADULT ---
HPI - General Adult General Chief complaint: Arrhythmia/Palpitations Stated complaint: Palpitations Time Seen by Provider: 11/27/24 02:59 History of Present Illness HPI narrative: 69 year old female complains of palpitations racing heart like symptoms since yesterday. No syncope or presyncope, no chest pain, no dyspnea. Garrett fevers chills cough. Denies drug use. No changes in medications. Related Data Home Medications ?Medication ?Instructions ?Recorded ?Confirmed atorvastatin 40 mg tablet 40 mg PO DAILY 08/02/19 08/26/22 lisinopril 40 mg tablet 40 mg PO DAILY 08/02/19 08/26/22 metformin 500 mg tablet 1,000 mg PO BID 08/02/19 08/26/22 cholecalciferol (vitamin D3) 25 50 mcg PO DAILY 12/30/19 08/26/22 mcg (1,000 unit) capsule (Vitamin D3) multivitamin 1 tab PO DAILY 12/30/19 08/26/22 Previous Rx's ?Medication ?Instructions ?Recorded aspirin 325 mg tablet 325 mg PO DAILY #90 tabs 08/28/22 tramadol 50 mg tablet 50 mg PO Q8H PRN pain #10 tabs 01/11/24 metoprolol succinate 25 mg 25 mg PO DAILY #30 tabs 11/27/24 tablet,extended release 24 hr Allergies Allergy/AdvReac Type Severity Reaction Status Date / Time garlic AdvReac Intermediate acid reflux Verified 01/11/24 19:16 Influenza Virus Vaccines AdvReac Mild Verified 01/11/24 19:16 acetaminophen (From Tylenol) AdvReac Itching Verified 01/11/24 19:16 Patient History Medical History 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 Wears dentures Bronchitis Acid reflux Allergies (~1962) Benign familial tremor (~1964) Mumps (~1958) Measles (~1963) Chicken pox (~1962) Anxiety (~2017) Asthma (~2018) H/O vaginal delivery Surgical History Anesthesia History of tonsillectomy (~1971) History of hernia repair (~1988) History of tubal ligation (~1978) Tumor (~1965) H/O vaginal hysterectomy Family History Father Bone cancer History of heart disease Hypertension Mother History of heart disease Hypertension Stroke Brother History of heart disease Hypertension Sister History of heart disease Grandfather Suicide Social History household members: spouse Smoking Status: Never smoker alcohol intake: never alcohol intake frequency: 0-2 drinks per day Exam Narrative Exam Narrative: GENERAL: Well-developed patient, in mild distress. HEAD: Atraumatic. Normocephalic. EYES: Pupils equal round and reactive. Extraocular motions intact. No scleral icterus. No injection or drainage. ENT: Nose without bleeding, purulent drainage. Throat without erythema, tonsillar hypertrophy or exudate. Airway patent. NECK: Trachea midline. Non tender CARDIOVASCULAR: Fast rate and regular rhythm without murmurs, gallops, or rubs. RESPIRATORY: Clear to auscultation. Breath sounds equal bilaterally. No wheezes, rales, or rhonchi. GASTROINTESTINAL: Abdomen soft, non-tender, nondistended. EXTREMITIES: No edema or joint tenderness. BACK: Nontender without deformity or crepitance. No flank tenderness. NEURO: AOx3. Motor functions grossly nonfocal. SKIN: No rash or erythema of visible areas Initial Vital Signs Initial Vital Signs: Vital Signs Temperature 97.6 F 11/27/24 02:53 Pulse Rate 135 H 11/27/24 02:53 Respiratory Rate 18 11/27/24 02:53 Blood Pressure 177/85 H 11/27/24 02:53 Pulse Oximetry 98 11/27/24 02:53 Oxygen Delivery Method Room Air 11/27/24 02:53 Course Orders Ordered: ED Orders 11/27/24 02:53 XR chest 1V Stat EKG-12 Lead Stat 11/27/24 03:00 Complete Blood Count AUTO DIFF Stat Comprehensive Metabolic Panel Stat D Dimer Stat Free T4, Direct Thyroxine Stat Lactate (Lactic Acid) Stat Lipase Stat Magnesium Stat NT-proBNP (BNP-Adult 18+) Stat PTT Partial Thromboplastin Jerry Stat Prothrombin Time INR Stat TSH [Thyroid Stimulating Hormone] Stat Troponin & CK Cardiac Panel Stat 11/27/24 03:53 EKG-12 Lead Stat 11/27/24 04:55 Troponin I Stat Discontinued Medications Aspirin (Aspirin 81 Mg Chew Tab) 324 mg PO NOW ONE Stop: 11/27/24 02:54 Last Admin: 11/27/24 03:09 Dose: 324 mg Documented By: JAMEE Metoprolol Tartrate (Metoprolol Tartrate 5 Mg/5 Ml Inj) 5 mg IV NOW ONE Stop: 11/27/24 03:04 Last Admin: 11/27/24 03:09 Dose: 5 mg Documented By: JAMEE Vital Signs Vital signs: Vital Signs - 8 hr 11/27/24 02:53 11/27/24 03:32 11/27/24 03:35 Temperature 97.6 F Pulse Rate 135 H 75 73 Respiratory Rate 18 19 21 Blood Pressure 177/85 H Pulse Oximetry 98 94 97 Oxygen Delivery Method Room Air Room Air 11/27/24 03:35 11/27/24 03:41 11/27/24 03:41 Temperature Pulse Rate 73 Respiratory Rate 19 Blood Pressure 152/72 H 154/70 H Pulse Oximetry 96 Oxygen Delivery Method 11/27/24 03:45 11/27/24 03:45 11/27/24 03:50 Temperature Pulse Rate 70 Respiratory Rate 18 Blood Pressure 151/67 H 137/63 Pulse Oximetry 96 Oxygen Delivery Method 11/27/24 03:50 11/27/24 03:55 11/27/24 03:55 Temperature Pulse Rate 69 66 Respiratory Rate 18 18 Blood Pressure 144/65 H Pulse Oximetry 96 95 Oxygen Delivery Method 11/27/24 04:00 11/27/24 04:00 11/27/24 04:16 Temperature Pulse Rate 70 Respiratory Rate 20 Blood Pressure 140/69 166/70 H Pulse Oximetry 97 Oxygen Delivery Method 11/27/24 04:16 11/27/24 04:20 11/27/24 04:20 Temperature Pulse Rate 74 71 Respiratory Rate 18 Blood Pressure 156/72 H Pulse Oximetry 98 98 Oxygen Delivery Method 11/27/24 04:25 11/27/24 04:25 11/27/24 04:30 Temperature Pulse Rate 75 Respiratory Rate 26 H Blood Pressure 149/67 H 146/61 H Pulse Oximetry 97 Oxygen Delivery Method 11/27/24 04:30 11/27/24 04:35 11/27/24 04:35 Temperature Pulse Rate 80 73 Respiratory Rate 24 18 Blood Pressure 146/67 H Pulse Oximetry 97 97 Oxygen Delivery Method 11/27/24 04:40 11/27/24 04:40 11/27/24 04:45 Temperature Pulse Rate 72 71 Respiratory Rate 19 17 Blood Pressure 148/74 H Pulse Oximetry 97 96 Oxygen Delivery Method 11/27/24 04:45 11/27/24 04:50 11/27/24 04:50 Temperature Pulse Rate 72 Respiratory Rate 17 Blood Pressure 145/75 H 142/73 H Pulse Oximetry 97 Oxygen Delivery Method 11/27/24 05:00 11/27/24 05:00 Temperature Pulse Rate 72 Respiratory Rate 20 Blood Pressure 165/70 H Pulse Oximetry 97 Oxygen Delivery Method Medical Decision Making Lab Data Lab results reviewed: Yes I reviewed the patient's lab results. Lab results narrative: White blood cell count 5400, hemoglobin 13.8, platelets adequate. Sodium 129 mildly decreased, potassium 4.2, glucose 204. Normal renal function. Liver functions and lipase normal. Troponin negative/unmeasurable. 11/27/24 03:00 11/27/24 03:00 Labs: Lab Results 11/27/24 11/27/24 Range/Units 03:00 04:55 WBC 5.4 (4.5-11.0) X10^3/uL RBC 4.53 (4.0-5.2) X10^6/uL Hgb 13.8 (12.0-16.0) g/dL Hct 39.8 (36-46) % MCV 87.9 (80-100) fL MCH 30.5 (26-34) PG MCHC 34.7 (30-36) % RDW 12.2 (11.6-14.8) % Plt Count 206 (150-400) X10^3/uL Neut % (Auto) 48.5 L (50-75) % Lymph % (Auto) 36.0 (25-40) % [place] % (Auto) 9.4 (3-14) % Eos % (Auto) 5.6 H (2-4) % Baso % (Auto) 0.5 (0-2) % Neut # (Auto) 2600 (1769-1322) /uL Lymph # (Auto) 1900 (7585-8224) /uL [place] # (Auto) 500 (0-900) /uL Eos # (Auto) 300 (0-450) /uL Baso # (Auto) 0 (0-100) /uL PT 11.8 (9.4-12.5) SECONDS INR 1.0 (0.9-1.3) APTT 34 (25.1-36.5) SECONDS D-Dimer 298 (<500) ng/ml Sodium 129 L (137-145) mmol/L Potassium 4.2 (3.4-5.1) mmol/L Chloride 96 L (98-107) mmol/L Carbon Dioxide 23 (22-32) mmol/L BUN 16 (7-17) mg/dL Creatinine 0.53 (0.52-1.04) mg/dL Estimated GFR > 60 (>60) mL/min BUN/Creatinine Ratio 30.2 H (6-22) Glucose 204 H (70-99) mg/dL Lactate 1.1 (0.7-2.1) mmol/L Calcium 10.2 (8.4-10.2) mg/dL Magnesium 1.9 (1.6-2.3) mg/dL Total Bilirubin 0.9 (0.2-1.3) mg/dL AST 30 (14-36) IU/L ALT 32 (<35) IU/L Alkaline Phosphatase 105 (38-126) U/L Total Creatine Kinase 103 (30-135) U/L Troponin I < 0.012 0.012 (0.01-0.034) ng/mL NT-Pro-B Natriuret Pep 38 (<125) pg/mL Total Protein 7.0 (6.3-8.2) g/dL Albumin 5.0 (3.5-5.0) g/dL Globulin 2.0 (1.7-4.1) g/dL Albumin/Globulin Ratio 2.5 (1.0-2.8) Lipase 117 (23-300) U/L TSH 4.43 (0.47-4.68) uIU/mL Free T4 1.22 (0.78-2.19) ng/dL ECG Data Attestation: I personally reviewed and interpreted this ECG as follows: Interpretation: Sinus tachycardia with ventricular response rate 135, no obvious ST segment elevation or depression changes. CT 168, QRS 80, QTC 408 0404, normal sinus rhythm with rate of 71, no obvious ST segment elevation or depression changes. CT 178, QRS 84, QTC 395. MDM Narrative Medical decision making narrative: 69-year-old female with palpitations and fast heart rate sensation since yesterday morning, seemed worse early this morning, no syncope or presyncope, afebrile, sirs screen negative. Screening EKG shows sinus tachycardia 130s on monitor as well. No wide complex rhythms. IV metoprolol 5 mg. Heart rate improved to 70-90 sinus rhythm. Repeat EKG pending. Labs pending. Labs show mild hyponatremia, normal potassium, normal white blood cell count troponin negative. Free T4 negative. D-dimer pending. Chest x-ray no acute changes. See tele radiology report. D-dimer normal range. Repeat troponin pending, if negative or discharge patient on oral metoprolol with outpatient follow up. Troponin negative. DC home on Metoprolol XL, follow up with cardiology. Discharge Plan Departure Patient Disposition: Home Clinical Impression: Sinus tachycardia Activity Restrictions/Additional Instructions: Fast heart rate palpitation symptoms. Sinus tachycardia with rate 130-140 range noted. IV metoprolol was given, heart rate improved to normal range. Electrolyte blood tests unremarkable. No evidence for heart attack at this time. D-dimer blood test was normal range, which would not be expected if you had large clot to the lungs causing the tachycardia. Normal thyroid screening tests. You did not seem to be having any withdrawal state, no changes in medications. Consider continuing metoprolol as an outpatient. Follow up with your PCP for further workup as an outpatient for now. Return to this/nearest emergency department for any change worsening symptoms or any concerns prior. Could also consider follow up with Cardiology, contact information given for Cardiology on-call clinic information. Prescriptions: New metoprolol succinate 25 mg tablet extended release 24 hr 25 mg PO DAILY Qty: 30 0RF No Action metformin 500 mg tablet 1,000 mg PO BID lisinopril 40 mg tablet 40 mg PO DAILY atorvastatin 40 mg tablet 40 mg PO DAILY multivitamin Tablet 1 tab PO DAILY cholecalciferol (vitamin D3) [Vitamin D3] 25 mcg (1,000 unit) Capsule 50 mcg PO DAILY aspirin 325 mg Tablet 325 mg PO DAILY Qty: 90 0RF tramadol 50 mg tablet 50 mg PO Q8H PRN (Reason: pain) Qty: 10 0RF Referrals: Kye Dukes [Non-Staff, Cardiology] Hui Marin MD [Primary Care Provider, Family Practice] Stand Alone Forms: Patient Portal/API
--- NOTE | 2024-11-27 03:01 | EKG_ITS ---
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
[2024-11-27 03:09] LABS: Add Manual Diff / Slide Review NO; Basophils Absolute Auto 0 /uL (0-100); Basophils Percent Auto 0.5 % (0-2); Eosinophils Absolute Auto 300 /uL (0-450); Eosinophils Percent Auto 5.6 % (2-4); Hematocrit 39.8 % (36-46); Hemoglobin 13.8 g/dL (12.0-16.0); Lymphocytes Absolute Auto 1900 /uL (1100-4500); Mean Corpuscular HGB Conc 34.7 % (30-36); Mean Corpuscular Hemoglobin 30.5 PG (26-34); Mean Corpuscular Volume 87.9 fL (80-100); Monocytes Absolute Auto 500 /uL (0-900); Monocytes Percent Auto 9.4 % (3-14); Neutrophils Absolute Auto 2600 /uL (1500-7000); Neutrophils Percent Auto 48.5 % (50-75); Platelet Count 206 X10^3/uL (150-400); Red Blood Cell Count 4.53 X10^6/uL (4.0-5.2); Red Cell Distribution Width 12.2 % (11.6-14.8); White Blood Cell Count 5.4 X10^3/uL (4.5-11.0)
[2024-11-27] MEDS: METOPROLOL TARTRATE 5 MG/5 ML INJ IV (03:09)
[2024-11-27] MEDS: ASPIRIN 81 MG CHEW TAB 324 MG PO (03:09)
[2024-11-27 03:16] LABS: Prothrombin Time 11.8 SECONDS (9.4-12.5)
[2024-11-27 03:18] LABS: PTT Partial Thromboplastin Tim 34 SECONDS (25.1-36.5)
[2024-11-27 03:32] LABS: Lactate (Lactic Acid) 1.1 mmol/L (0.7-2.1)
[2024-11-27 03:33] LABS: Alanine Aminotransferase 32 IU/L (<35); Albumin Globulin Ratio 2.5 (1.0-2.8); Alkaline Phosphatase 105 U/L (38-126); Aspartate Aminotransferase 30 IU/L (14-36); BUN Creatinine Ratio 30.2 (6-22); Bilirubin Total 0.9 mg/dL (0.2-1.3); Blood Urea Nitrogen 16 mg/dL (7-17); Calcium 10.2 mg/dL (8.4-10.2); Carbon Dioxide 23 mmol/L (22-32); Chloride 96 mmol/L (98-107); Creatine Kinase 103 U/L (30-135); Estimated Glomerular Filt Rate > 60 mL/min (>60); Glucose 204 mg/dL (70-99); HEMOLYSIS < 15 (0-50); Lipase 117 U/L (23-300); Magnesium 1.9 mg/dL (1.6-2.3); Potassium 4.2 mmol/L (3.4-5.1); Sodium 129 mmol/L (137-145)
[2024-11-27 03:44] LABS: NT-proBNP (BNP-Adult 18+) 38 pg/mL (<125); Troponin I < 0.012 ng/mL (0.01-0.034)
--- NOTE | 2024-11-27 04:04 | EKG_ITS ---
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
[2024-11-27 04:13] LABS: D Dimer 298 ng/ml (<500)
[2024-11-27 04:32] LABS: Free T4, Direct Thyroxine 1.22 ng/dL (0.78-2.19)
[2024-11-27 04:46] LABS: Thyroid Stimulating Hormone 4.43 uIU/mL (0.47-4.68)
[2024-11-27 05:30] LABS: Troponin I 0.012 ng/mL (0.01-0.034)
== END 2024-11-27 05:56 | disposition home or self-care (01) ==
PROVIDERS: Emergency Provider Emergency Medicine; Family Provider Family Medicine; PCP Family Medicine
DX: R00.0 Tachycardia, unspecified (principal)
CPT/HCPCS: 36415; 71045; 80053; 82550; 83605; 83690; 83735; 83880; 84439; 84443; 84484; 85025; 85379; 85610; 85730; 93005; 96374; 99284

== ENCOUNTER 2025-01-30 13:43 | Emergency (ER) | payer MEDICARE, OTHER, SELFPAY ==
[2022-08-26 23:32] VITALS: BMI 21.9
[2025-01-30 13:48] VITALS: BP 147/72; PULSE 89; RESP 14; TEMP 36.8; O2SAT 98; BMI 23.2
--- NOTE | 2025-01-30 13:55 | ED_ITS ---
<Statement entered by Steve Lira, DO - 01/30/25 17:52> Co-sign statement: I was available for consultation during this patient's emergency department visit. This chart is being signed by myself for administrative purposes only. I do not have direct contact with this patient during this visit. They were seen independently by the APC. HPI - Female Genitourinary <Jeannine Michaels PA-C - Last Filed: 01/30/25 16:43> General Chief complaint: Urogenital-Female Stated complaint: possible UTI Time Seen by Provider: 01/30/25 13:47 Source: patient Mode of arrival: Ambulatory History of Present Illness HPI Narrative: Ms. Meadows is a pleasant 69-year-old female with a past medical history of hypertension, hyperlipidemia, diabetes, CVA, tremor, asthma, cystocele/vaginal v olivier prolapse who presents to the emergency department for concern of UTI symptoms since 11am. Patient states at 11:00 a.m. she was at the grocery store, went to the bathroom and had significant burning in her urethra. Since then she has had frequency of urination with significant burning each time. She has no pain at rest. Denies abdominal pain, flank pain, fevers, chills, nausea, vomiting, any other concerns. Related Data Home Medications ?Medication ?Instructions ?Recorded ?Confirmed atorvastatin 40 mg tablet 40 mg PO DAILY 08/02/1909/15 lisinopril 40 mg tablet 40 mg PO DAILY 08/02/1909/15 metformin 500 mg tablet 1,000 mg PO BID 08/02/1909/15 cholecalciferol (vitamin D3) 25 50 mcg PO DAILY 08/26/22 mcg (1,000 unit) capsule (Vitamin D3) multivitamin 1 tab PO DAILY 12/30/1909/15 Previous Rx's ?Medication ?Instructions ?Recorded aspirin 325 mg tablet 325 mg PO DAILY #90 tabs 11/15 tramadol 50 mg tablet 50 mg PO Q8H PRN pain #10 ta bs 01/11/24 metoprolol succinate 25 mg 25 mg PO DAILY #30 tabs 10/18 tablet,extended release 24 hr cephalexin 500 mg capsule 500 mg PO QID 7 days #28 cap s 01/30/25 phenazopyridine 200 mg tablet 200 mg PO TID PRN pain 6 doses #6 01/30/25 (Pyridium) tabs Allergies Allergy/AdvReac Type Severity Reaction Status Date / Time garlic AdvReac Intermediate acid reflux Verified 01/30/25 13:53 Influenza Virus Vaccines AdvReac Mild Verified 01/30/25 13:53 acetaminophen (From Tylenol) AdvReac Itching Verified 01/30/25 13:53 Review of Systems <Jeannine Michaels PA-C - Last Filed: 01/30/25 16:43> Review of Systems ROS Unobtainable: All systems reviewed & are unremarkable except as noted in HPI and below Patient History <Jeannine Michaels PA-C - Last Filed: 01/30/25 16:43> Medical History 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 Wears dentures Bronchitis Acid reflux Allergies (~1962) Benign familial tremor (~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) Mumps (~1958) Measles (~1963) Chicken pox (~1962) Anxiety (~2018) Asthma (~2019) H/O vaginal delivery Surgical History Anesthesia History of tonsillectomy (~1971) History of hernia repair (~1988) History of tubal ligation (~1978) Tumor (~1965) H/O vaginal hysterectomy Family History Father Bone cancer History of heart disease Hypertension Mother History of heart disease Hypertension Stroke Brother History of heart disease Hypertension Sister History of heart disease Grandfather Suicide Exam <Jeannine Michaels PA-C - Last Filed: 01/30/25 16:43> Narrative Exam Narrative: GENERAL: 69 year old patient appears stated age. Elderly patient, in no acute distress. HEAD: Atraumatic. Normocephalic. NECK: Trachea midline. Cervical ROM intact. CARDIOVASCULAR: Regular rate RESPIRATORY: ?Nonlabored respirations. ?Speaking in clear, full sentences. GASTROINTESTINAL: Abdomen soft, non-tender, nondistended. Bowel sounds present. EXTREMITIES: No edema or joint tenderness. BACK: No flank tenderness. NEURO: AOx3. ?Clear speech. ? SKIN: No rash or erythema of visible areas Initial Vital Signs Initial Vital Signs: Vital Signs Temperature 98.3 F 01/30/25 13:48 Pulse Rate 89 01/30/25 13:48 Respiratory Rate 14 01/30/25 13:48 Blood Pressure 147/72 H 01/30/25 13:48 Pulse Oximetry 98 01/30/25 13:48 Oxygen Delivery Method Room Air 01/30/25 13:48 <Steve Lira DO - Last Filed: 01/31/25 07:02> Initial Vital Signs Initial Vital Signs: Vital Signs Temperature 98.3 F 01/30/25 13:48 Pulse Rate 89 01/30/25 13:48 Respiratory Rate 14 01/30/25 13:48 Blood Pressure 147/72 H 01/30/25 13:48 Pulse Oximetry 98 01/30/25 13:48 Oxygen Delivery Method Room Air 01/30/25 13:48 Course <Jeannine Michaels PA-C - Last Filed: 01/30/25 16:43> Orders Ordered: Discontinued Medications Cephalexin HCl (Cephalexin 250 Mg Capsule) 500 mg PO NOW ONE Stop: 01/30/25 14:45 Last Admin: 01/30/25 15:11 Dose: 500 mg Documented By: GARLAND Phenazopyridine HCl (Phenazopyridine 100 Mg Tablet) 200 mg PO NOW ONE Stop: 01/30/25 14:18 Last Admin: 01/30/25 14:35 Dose: 200 mg Documented By: GARLAND Vital Signs Vital signs: Vital Signs - 8 hr 01/30/25 13:48 01/30/25 15:24 Temperature 98.3 F Pulse Rate 89 74 Respiratory Rate 14 18 Blood Pressure 147/72 H 159/67 H Pulse Oximetry 98 99 Oxygen Delivery Method Room Air Room Air <Steve Lira DO - Last Filed: 01/31/25 07:02> Orders Ordered: Discontinued Medications Cephalexin HCl (Cephalexin 250 Mg Capsule) 500 mg PO NOW ONE Stop: 01/30/25 14:45 Last Admin: 01/30/25 15:11 Dose: 500 mg Documented By: GARLAND Phenazopyridine HCl (Phenazopyridine 100 Mg Tablet) 200 mg PO NOW ONE Stop: 01/30/25 14:18 Last Admin: 01/30/25 14:35 Dose: 200 mg Documented By: GARLAND Vital Signs Vital signs: Vital Signs - 8 hr 01/30/25 13:48 01/30/25 15:24 Temperature 98.3 F Pulse Rate 89 74 Respiratory Rate 14 18 Blood Pressure 147/72 H 159/67 H Pulse Oximetry 98 99 Oxygen Delivery Method Room Air Room Air MDM - Female Genitourinary <Jeannine Michaels PA-C - Last Filed: 01/30/25 16:43> Medical Records Attestation: I reviewed the patient's medical records. Lab Data Labs: Lab Results 01/30/25 Range/Units 13:50 Urine Color Yellow Urine Appearance Clear Urine pH 7.0 (4.5-8.0) Ur Specific [place] <=1.005 (1.000-1.035) Urine Protein 1+ H (Negative) Urine Glucose (UA) Negative (Negative) g/dL Urine Ketones Negative (NEGATIVE) Urine Occult Blood 3+ H (Negative) Urine Nitrate Negative (Negative) Urine Bilirubin Negative (NEGATIVE) Urine Urobilinogen 0.2 (0.2) E.U./dL Ur Leukocyte Esterase 1+ H (NEGATIVE) Urine RBC 1-5/hpf (0-5/HPF) Urine WBC 0-1/hpf (0-5/HPF) Ur Squamous Epith Cells 0-1 /hpf (0-5/HPF) Ur Transition Epith Cell 0-1/hpf (0-5/HPF) Urine Bacteria Few (2-10) H (None) Urine Yeast 0-1/hpf (None) Ur Culture Indicated? Specimen cultured Vol Urine Centrifuged Low vol <10ml (spun) A MDM Narrative Medical decision making narrative: 69-year-old female with a past medical history of hypertension, hyperlipidemia, diabetes, CVA, tremor, asthma, cystocele/vaginal vault prolapse who presents to the emergency department for concern of UTI symptoms since 11am. Differential diagnosis includes but is not limited to UTI, vulvovaginitis, urethritis, etc. On exam the patient is in no acute distress, nontoxic appearing, vital signs appropriate. Abdomen is soft and nontender. She is having no flank pain or systemic symptoms however she has been having dysuria and frequency today. Urinalysis obtained. We will treat pain with AZO. EMR system did flag me that there is cross reactivity between azo and acetaminophen. I asked patient her al lergic response to Tylenol/acetaminophen, she states that she actually has no allergic reaction to this. She is okay to proceed with AZO. Urinalysis reveals few bacteria, WBC, leuk esterase in addition to RBC, occult blood. Given patient's significant burning only with urination, we will treat as early UTI with Keflex q.i.d. x7 days, urine culture is pending. I also prescribed patient Pyridium to help with her symptoms. I did inform patient that due to her hematuria and history of cystocele she should follow up with Urology if she finds herself with persistent symptoms however if she gets much worse or has no improvement she should return to the ER. Discussed strict ED return precautions. Patient verbalized understanding of all information and is happy with this plan. Prescription sent to pharmacy of choice. She is stable for discharge home. <Steve Lira, DO - Last Filed: 01/31/25 07:02> Lab Data Labs: Lab Results 01/30/25 Range/Units 13:50 Urine Color Yellow Urine Appearance Clear Urine pH 7.0 (4.5-8.0) Ur Specific [place] <=1.005 (1.000-1.035) Urine Protein 1+ H (Negative) Urine Glucose (UA) Negative (Negative) g/dL Urine Ketones Negative (NEGATIVE) Urine Occult Blood 3+ H (Negative) Urine Nitrate Negative (Negative) Urine Bilirubin Negative (NEGATIVE) Urine Urobilinogen 0.2 (0.2) E.U./dL Ur Leukocyte Esterase 1+ H (NEGATIVE) Urine RBC 1-5/hpf (0-5/HPF) Urine WBC 0-1/hpf (0-5/HPF) Ur Squamous Epith Cells 0-1 /hpf (0-5/HPF) Ur Transition Epith Cell 0-1/hpf (0-5/HPF) Urine Bacteria Few (2-10) H (None) Urine Yeast 0-1/hpf (None) Ur Culture Indicated? Specimen cultured Vol Urine Centrifuged Low vol <10ml (spun) A MDM Narrative Medical decision making narrative: 69-year-old female with a past medical history of hypertension, hyperlipidemia, diabetes, CVA, tremor, asthma, cystocele/vaginal vault prolapse who presents to the emergency department for concern of UTI symptoms since 11am. Differential diagnosis includes but is not limited to UTI, vulvovaginitis, urethritis, etc. On exam the patient is in no acute distress, nontoxic appearing, vital signs appropriate. Abdomen is soft and nontender. She is having no flank pain or systemic symptoms however she has been having dysuria and frequency today. Urinalysis obtained. We will treat pain with AZO. EMR system did flag me that there is cross reactivity between azo and acetaminophen. I asked patient her allergic response to Tylenol/acetaminophen, she states that she actually has no allergic reaction to this. She is okay to proceed with AZO. Urinalysis reveals few bacteria, WBC, leuk esterase in addition to RBC, occult blood. Given patient's significant burning only with urination, we will treat as early UTI with Keflex q.i.d. x7 days, urine culture is pending. I also prescribed patient Pyridium to help with her symptoms. I did inform patient that due to her hematuria and history of cystocele she should follow up with Urology if she finds herself with persistent symptoms however if she gets much worse or has no improvement she should return to the ER. Discussed strict ED return precautions. Patient verbalized understanding of all information and is happy with this plan. Prescription sent to pharmacy of choice. She is stable for discharge home. Co-sign statement: I was available for consultation during this patient's emergency department visit. This chart is being signed by myself for administrative purposes only. I do not have direct contact with this patient during this visit. They were seen independently by the APC. Discharge Plan Departure Patient Disposition: Home Clinical Impression: Dysuria, Acute UTI Instructions: DI for Urinary Tract Infection (UTI), DI for Dysuria -- Adult Activity Restrictions/Additional Instructions: Dear Ms. Meadows, Thank you for coming to the emergency department. Today you were evaluated for potential urinary tract infection in your urine test did reveal some bacteria and signs of infection. This urine test has been sent to the lab for urine culture which will show if bacteria grow or do not grow. If this urine culture determined that you need a different antibiotic, you will be called. You have been prescribed an antibiotic in addition to a urinary tract pain reliever. Please take these medications as prescribed. If you have persistent symptoms please follow up with the urologist given your history of cystocele. However if the symptoms get worse, you develop severe pain, fevers, vomiting or any other concerns please return to the ER immediately. Please follow up with your primary care doctor within the next 2-3 days for ER follow-up. (If you do not have a PCP you can call [phone]. ?to schedule an appointment with an [facility] Primary Care Provider) IF YOU DEVELOP ANY NEW OR WORSENING SYMPTOMS, RETURN TO THE ER! Please read the attached instructions, they highlight more specific treatments and interventions for you at home. Thank you for letting me participate in your care, Jeannine Michaels PA-C Prescriptions: New cephalexin 500 mg capsule 500 mg PO QID 7 Days Qty: 28 0RF phenazopyridine [Pyridium] 200 mg tablet 200 mg PO TID PRN (Reason: pain) Qty: 6 0RF No Action metformin 500 mg tablet 1,000 mg PO BID lisinopril 40 mg tablet 40 mg PO DAILY atorvastatin 40 mg tablet 40 mg PO DAILY multivitamin Tablet 1 tab PO DAILY cholecalciferol (vitamin D3) [Vitamin D3] 25 mcg (1,000 unit) Capsule 50 mcg PO DAILY aspirin 325 mg Tablet 325 mg PO DAILY Qty: 90 0RF tramadol 50 mg tablet 50 mg PO Q8H PRN (Reason: pain) Qty: 10 0RF metoprolol succinate 25 mg tablet extended release 24 hr 25 mg PO DAILY Qty: 30 0RF Referrals: Buddy Sifuentes DO [Physician, Urology] Referral Note: uti, hematuria, cystocele Hui Marin MD [Primary Care Provider, Family Practice] Stand Alone Forms: Patient Portal/API
[2025-01-30 14:22] LABS: Appearance Urine UA CLEAR; Bilirubin Urine UA NEGATIVE (NEGATIVE); Color Urine UA YELLOW; Glucose Urine UA NEGATIVE (Negative); Ketones Urine UA NEGATIVE (NEGATIVE); Leukocyte Esterase Urine UA 1+ (NEGATIVE); Nitrite Urine UA NEGATIVE (Negative); Occult Blood Urine UA 3+ (Negative); Protein Urine UA 1+ (Negative); Specific Gravity Urine UA <=1.005 (1.000-1.035); Urobilinogen Urine UA 0.2 E.U./dL (0.2)
[2025-01-30 14:28] LABS: pH Urine UA 7.0 (4.5-8.0)
[2025-01-30 14:30] LABS: Culture Indicated Urine Specimen Cultured
[2025-01-30] MEDS: PHENAZOPYRIDINE 100 MG TABLET 200 MG PO (14:35)
[2025-01-30 15:24] VITALS: BP 159/67; PULSE 74; RESP 18; O2SAT 99
== END 2025-01-30 15:26 | disposition home or self-care (01) ==
PROVIDERS: Emergency Provider Physician Assistant; Family Provider Family Medicine; PCP Family Medicine
DX: N39.0 Urinary tract infection, site not specified (principal); R30.0 Dysuria; Z87.448 Personal history of other diseases of urinary system
CPT/HCPCS: 81001; 87086; 99283

== ENCOUNTER 2025-06-11 18:36 | Observation (INO) | payer MEDICARE, OTHER, SELFPAY ==
[2022-08-26 23:32] VITALS: BMI 21.9
[2025-06-11] VITALS (22 sets, daily range): BP systolic 165–234; BP diastolic 75–108; PULSE 60–105; RESP 17–24; TEMP 36.5; O2SAT 97–100; BMI 22.2
--- NOTE | 2025-06-11 18:51 | DI.RAD.S_ITS ---
PROCEDURE: XR CHEST 1V INDICATIONS: ams TECHNIQUE: One view of the chest was acquired. COMPARISON: [facility], , XR CHEST 1V, 11/27/2024, 2:49. [facility], CR, XR CHEST 1V, 08/26/2022, 20:44. FINDINGS: Surgical changes and devices: None. Lungs and pleura: Lungs are clear. No pleural effusions or pneumothorax. Mediastinum: Mediastinal contours appear normal. Heart size is normal. Bones and chest wall: No suspicious bony lesions. Overlying soft tissues appear unremarkable. IMPRESSION: No acute cardiopulmonary abnormality is seen. Dictated by: Jose Grimes M.D. on 06/11/2025 at 19:14 Approved by: Jose Grimes M.D. on 06/11/2025 at 19:14
--- NOTE | 2025-06-11 18:52 | ED.AMS ---
HPI - Altered Mental Status General Chief Complaint: Neuro Symptoms/Deficit Stated Complaint: Possible stroke Time Seen by Provider: 06/11/25 18:45 History of Present Illness HPI narrative: 69-year-old female past medical history hypertension dyslipidemia is diabetes CVA tremor at asthma cystocele and vaginal vault prolapse presents with altered mental status difficulty concentrating form words and concentrate at 6:15 p.m. brought in for further evaluation. Other than what is stated 14 point ROS is negative. Related Data Home Medications ?Medication ?Instructions ?Recorded ?Confirmed atorvastatin 40 mg tablet 40 mg PO DAILY 08/02/19 02/12/25 lisinopril 40 mg tablet 40 mg PO DAILY 08/02/19 02/12/25 metformin 500 mg tablet 1,000 mg PO BID 08/02/19 02/12/25 cholecalciferol (vitamin D3) 25 50 mcg PO DAILY 12/30/19 02/12/25 mcg (1,000 unit) capsule (Vitamin D3) multivitamin 1 tab PO DAILY 12/30/19 02/12/25 Previous Rx's ?Medication ?Instructions ?Recorded aspirin 325 mg tablet 325 mg PO DAILY #90 tabs 08/28/22 tramadol 50 mg tablet 50 mg PO Q8H PRN pain #10 tabs 01/11/24 metoprolol succinate 25 mg 25 mg PO DAILY #30 tabs 11/27/24 tablet,extended release 24 hr phenazopyridine 200 mg tablet 200 mg PO TID PRN pain 6 doses #6 01/30/25 (Pyridium) tabs phenazopyridine 100 mg tablet 100 mg PO TID PRN pain 6 doses #6 02/12/25 (Pyridium) tabs Allergies Allergy/AdvReac Type Severity Reaction Status Date / Time garlic AdvReac Intermediate acid reflux Verified 06/11/25 18:53 Influenza Virus Vaccines AdvReac Mild Verified 06/11/25 18:53 acetaminophen (From Tylenol) AdvReac Itching Verified 06/11/25 18:53 Review of Systems Review of Systems ROS Unobtainable: All systems reviewed & are unremarkable except as noted in HPI and below Patient History Medical History 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 Wears dentures Bronchitis Acid reflux Allergies (~1962) Benign familial tremor (~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) Mumps (~1958) Measles (~1963) Chicken pox (~1962) Anxiety (~2018) Asthma (~2019) H/O vaginal delivery Surgical History Anesthesia History of tonsillectomy (~1971) History of hernia repair (~1988) History of tubal ligation (~1978) Tumor (~1965) H/O vaginal hysterectomy Family History Father Bone cancer History of heart disease Hypertension Mother History of heart disease Hypertension Stroke Brother History of heart disease Hypertension Sister History of heart disease Grandfather Suicide Social History household members: spouse alcohol intake: never alcohol intake frequency: 0-2 drinks per day Exam Narrative Exam Narrative: GENERAL: [69] year old patient appears stated age. Well-developed patient, in mild distress. HEAD: Atraumatic. Normocephalic. EYES: Pupils equal round and reactive. Extraocular motions intact. No scleral icterus. No injection or drainage. ENT: Nose without bleeding, purulent drainage. Throat without erythema, tonsillar hypertrophy or exudate. Airway patent. NECK: Trachea midline. Non tender CARDIOVASCULAR: Regular rate and rhythm without murmurs, gallops, or rubs. RESPIRATORY: Clear to auscultation. Breath sounds equal bilaterally. No wheezes, rales, or rhonchi. GASTROINTESTINAL: Abdomen soft, non-tender, nondistended. EXTREMITIES: No edema or joint tenderness. BACK: Nontender without deformity or crepitance. No flank tenderness. NEURO: AOx3. SKIN: No rash or erythema of visible areas Initial Vital Signs Initial Vital Signs: Vital Signs Temperature 97.7 F 06/11/25 18:53 Pulse Rate 105 H 06/11/25 18:53 Respiratory Rate 20 06/11/25 18:53 Blood Pressure 234/107 H 06/11/25 18:53 Pulse Oximetry 100 06/11/25 18:53 Oxygen Delivery Method Room Air 06/11/25 18:53 Scores NIH Stroke Scale Level of Conciousness: Alert, keenly responsive Ask month/age: Answers both questions correctly. Open/close eyes, close hand: Performs both tasks correctly Best gaze horizontal: Normal Visual george: No visual loss Facial palsy: Normal symetrical movement Left arm drift: No drift for full 10 sec Right arm drift: No drift for full 10 sec Left leg drift: No drift for full 5 sec Right leg drift: No drift for full 5 sec Limb ataxia: Absent Sensory on face/arms/legs: Normal, no sensory loss Best language: No aphasia, normal Dysarthria: Normal Extinction or inattention: No abnormality Total NIH Stroke scale score: 0 Course Orders Ordered: ED Orders 06/11/25 18:51 CT angio head and neck Stat CT head/brain wo con Stat XR chest 1V Stat EKG-12 Lead Stat 06/11/25 18:55 Complete Blood Count AUTO DIFF Stat Comprehensive Metabolic Panel Stat Lipase Stat Magnesium Stat NT-proBNP (BNP-Adult 18+) Stat Troponin I Stat 06/11/25 22:08 Troponin I Stat Vital Signs Vital signs: Vital Signs - 8 hr 06/11/25 18:53 06/11/25 18:54 06/11/25 18:54 Temperature 97.7 F Pulse Rate 105 H 91 H Respiratory Rate 20 Blood Pressure 234/107 H 198/95 H Pulse Oximetry 100 100 Oxygen Delivery Method Room Air 06/11/25 19:10 06/11/25 19:21 06/11/25 19:21 Temperature Pulse Rate 78 81 Respiratory Rate Blood Pressure 184/80 H Pulse Oximetry 100 100 Oxygen Delivery Method 06/11/25 19:30 06/11/25 19:30 06/11/25 19:45 Temperature Pulse Rate 86 Respiratory Rate Blood Pressure 206/97 H 181/79 H Pulse Oximetry 100 Oxygen Delivery Method 06/11/25 19:45 06/11/25 20:00 06/11/25 20:00 Temperature Pulse Rate 76 78 Respiratory Rate 22 Blood Pressure 192/108 H Pulse Oximetry 99 100 Oxygen Delivery Method Room Air 06/11/25 20:15 06/11/25 20:15 06/11/25 20:30 Temperature Pulse Rate 74 65 Respiratory Rate 18 Blood Pressure 193/90 H Pulse Oximetry 99 99 Oxygen Delivery Method 06/11/25 20:30 06/11/25 20:45 06/11/25 20:45 Temperature Pulse Rate 63 Respiratory Rate 22 Blood Pressure 173/87 H 171/83 H Pulse Oximetry 98 Oxygen Delivery Method 06/11/25 21:00 06/11/25 21:00 06/11/25 21:15 Temperature Pulse Rate 64 Respiratory Rate 19 Blood Pressure 168/84 H 165/82 H Pulse Oximetry 98 Oxygen Delivery Method 06/11/25 21:15 06/11/25 21:30 06/11/25 21:30 Temperature Pulse Rate 64 65 Respiratory Rate 18 22 Blood Pressure 178/77 H Pulse Oximetry 98 99 Oxygen Delivery Method Room Air 06/11/25 21:45 06/11/25 21:45 06/11/25 22:00 Temperature Pulse Rate 65 64 Respiratory Rate 19 24 Blood Pressure 174/87 H Pulse Oximetry 99 99 Oxygen Delivery Method Room Air 06/11/25 22:00 06/11/25 22:30 06/11/25 22:31 Temperature Pulse Rate 76 69 Respiratory Rate 21 Blood Pressure 170/85 H Pulse Oximetry 98 99 Oxygen Delivery Method Room Air 06/11/25 22:31 Temperature Pulse Rate Respiratory Rate 20 Blood Pressure 183/86 H Pulse Oximetry Oxygen Delivery Method MDM - Altered Mental Status Lab Data 06/11/25 18:55 06/11/25 18:55 Labs: Lab Results 06/11/25 06/11/25 06/11/25 Range/Units 18:48 18:55 19:27 WBC 8.6 (4.5-11.0) X10^3/uL RBC 4.50 (4.0-5.2) X10^6/uL Hgb 13.9 (12.0-16.0) g/dL Hct 39.3 (36-46) % MCV 87.4 (80-100) fL MCH 31.0 (26-34) PG MCHC 35.5 (30-36) % RDW 11.6 (11.6-14.8) % Plt Count 256 (150-400) X10^3/uL Neut % (Auto) 72.2 (50-75) % Lymph % (Auto) 19.5 L (25-40) % [place] % (Auto) 6.2 (3-14) % Eos % (Auto) 1.5 L (2-4) % Baso % (Auto) 0.6 (0-2) % Neut # (Auto) 6200 (5095-0526) /uL Lymph # (Auto) 1700 (0581-0477) /uL [place] # (Auto) 500 (0-900) /uL Eos # (Auto) 100 (0-450) /uL Baso # (Auto) 100 (0-100) /uL Sodium 132 L (137-145) mmol/L Potassium 3.5 (3.4-5.1) mmol/L Chloride 99 (98-107) mmol/L Carbon Dioxide 18 L (22-32) mmol/L BUN 13 (7-17) mg/dL Creatinine 0.57 (0.52-1.04) mg/dL Estimated GFR > 60 (>60) mL/min BUN/Creatinine Ratio 22.8 H (6-22) Glucose 231 H (70-99) mg/dL POC Whole Bld Glucose 245 H 220 H (70-99) mg/dL Calcium 9.8 (8.4-10.2) mg/dL Magnesium 1.4 L (1.6-2.3) mg/dL Total Bilirubin 0.6 (0.2-1.3) mg/dL AST 40 H (14-36) IU/L ALT 32 (<35) IU/L Alkaline Phosphatase 95 (38-126) U/L Troponin I < 0.012 (0.01-0.034) ng/mL NT-Pro-B Natriuret Pep 96 (<125) pg/mL Total Protein 7.2 (6.3-8.2) g/dL Albumin 4.8 (3.5-5.0) g/dL Globulin 2.4 (1.7-4.1) g/dL Albumin/Globulin Ratio 2.0 (1.0-2.8) Lipase 103 (23-300) U/L // Range/Units 22:08 WBC (4.5-11.0) X10^3/uL RBC (4.0-5.2) X10^6/uL Hgb (12.0-16.0) g/dL Hct (36-46) % MCV (80-100) fL MCH (26-34) PG MCHC (30-36) % RDW (11.6-14.8) % Plt Count (150-400) X10^3/uL Neut % (Auto) (50-75) % Lymph % (Auto) (25-40) % [place] % (Auto) (3-14) % Eos % (Auto) (2-4) % Baso % (Auto) (0-2) % Neut # (Auto) (6868-1087) /uL Lymph # (Auto) (0512-2040) /uL [place] # (Auto) (0-900) /uL Eos # (Auto) (0-450) /uL Baso # (Auto) (0-100) /uL Sodium (137-145) mmol/L Potassium (3.4-5.1) mmol/L Chloride (98-107) mmol/L Carbon Dioxide (22-32) mmol/L BUN (7-17) mg/dL Creatinine (0.52-1.04) mg/dL Estimated GFR (>60) mL/min BUN/Creatinine Ratio (6-22) Glucose (70-99) mg/dL POC Whole Bld Glucose (70-99) mg/dL Calcium (8.4-10.2) mg/dL Magnesium (1.6-2.3) mg/dL Total Bilirubin (0.2-1.3) mg/dL AST (14-36) IU/L ALT (<35) IU/L Alkaline Phosphatase (38-126) U/L Troponin I < 0.012 (0.01-0.034) ng/mL NT-Pro-B Natriuret Pep (<125) pg/mL Total Protein (6.3-8.2) g/dL Albumin (3.5-5.0) g/dL Globulin (1.7-4.1) g/dL Albumin/Globulin Ratio (1.0-2.8) Lipase (23-300) U/L Urine Dip Bedside Urine Glucose 250 mg/dl Bedside Urine Bilirubin - Negative Bedside Urine Ketone - Negative Urine Specific [place] 1.005 Bedside Urine Occult Blood - Negative Bedside Urine pH 6.0 Bedside Urine Protein - Negative Bedside Urine Urobilinogen - Negative Bedside Urine Nitrite - Negative Bedside Urine Leukocytes - Negative Esterase Imaging Data CT scan - head: Radiologist's Impression: [address] [address] [address] Scan Report Signed Patient: Marlene Meadows MR#: [id number] : 1955 Acct:[id number] Age/Sex: 69 / F Date of Service: 06/11/25 Loc: ED Accession Number: [id number] Procedure: CT head/brain wo con Ordering Provider: Steve Lira D.O. PROCEDURE: CT HEAD/BRAIN WO CON INDICATIONS: ams previous tia TECHNIQUE: Noncontrast 4.5 mm thick angled axial sections acquired from the foramen magnum to the vertex, with coronal and sagittal reformats. For radiation dose reduction, the following was used: automated exposure control, adjustment of mA and/or kV according to patient size. COMPARISON: [facility], CT, CT HEAD/BRAIN WO CON, 02/26/2022, 19:35. FINDINGS: Image quality: Diagnostic. CSF spaces: Basal cisterns are patent. No extra-axial fluid collections. The ventricles are symmetric in size and shape. Brain: No intracranial bleeds or mass effect. There is cerebral volume loss, with resultant ventricular and sulcal prominence. There are periventricular and deep white matter chronic small vessel ischemic changes. There is intracranial internal carotid artery atherosclerosis. Skull and face: Calvarium and visualized facial bones appear intact, without suspicious lesions. Sinuses: Visualized sinuses and mastoids are clear. IMPRESSION: No acute intracranial pathology. Dictated by: Jose Grimes M.D. on 06/11/2025 at 19:14 Approved by: Jose Grimes M.D. on 06/11/2025 at 19:15 CTA - brain/neck: Radiologist's Impression: [place] [address] CT Scan Report Signed Patient: Marlene Meadows MR#: [id number] : 1955 Acct:[id number] Age/Sex: 69 / F Date of Service: 06/11/25 Loc: ED Accession Number: [id number] Procedure: CT angio head and neck Ordering Provider: Steve Lira D.O. PROCEDURE: CT ANGIO HEAD AND NECK INDICATIONS: ams previous tia TECHNIQUE: After the administration of intravenous contrast, 1 mm thick sections acquired from the aortic arch through the [place] of [place]. 3-dimensional ooqoxcm-otcobvnqj-gbcdulsrpl (MIP) and/or volume rendering reformats were acquired of the central intracranial vasculature and neck separately. For radiation dose reduction, the following was used: automated exposure control, adjustment of mA and/or kV according to patient size. COMPARISON: [facility], CT, CT ANGIO HEAD AND NECK, 08/26/2022, 20:40. FINDINGS: Image quality: Diagnostic. Cerebral CT Angiogram: Internal carotid arteries: No acute findings. Intracranial ICA are patent with no significant stenosis. No occlusion. No aneurysm. Anterior cerebral arteries: Unremarkable. No significant stenosis. No occlusion. No aneurysm. Middle cerebral arteries: Dominant right MCA. No large vessel occlusion. Posterior cerebral arteries: Unremarkable. No significant stenosis. No occlusion. No aneurysm. Basilar artery: Unremarkable. No significant stenosis. No occlusion. No aneurysm. Vertebral arteries: Unremarkable as visualized. Dural venous sinuses: Unremarkable given phase of enhancement. Other: Arterial phase appearance of the brain parenchyma is unremarkable. Neck CT Angiogram: Internal carotid arteries: Unremarkable. No significant stenosis. No dissection or occlusion. Common carotid arteries: Unremarkable. No significant stenosis. No dissection or occlusion. External carotid arteries: Unremarkable. No occlusion. Vertebral arteries: Unremarkable. No significant stenosis. No dissection or occlusion. Aortic Arch and Mediastinum: Partially visualized aortic arch unremarkable without evidence of aneurysm. Origins of the great vessels unremarkable. Other: Arterial phase soft tissues of the neck and chest are unremarkable. IMPRESSION: No significant intracranial arterial abnormality is seen. No significant abnormality is seen within the arteries of the neck. Any quantitative measurements of stenosis were performed using NASCET criteria. Dictated by: Jose Grimes M.D. on 06/11/2025 at 19:22 Approved by: Jose Grimes M.D. on 06/11/2025 at 19:24 ECG Data Interpretation: Sinus Rhythm with PVC HR 75 VA 144 QRS [address]-t wave change Change from 11/27/24 [facility] Narrative Medical decision making narrative: All lab work, vital signs, nurse triage note, medication list, previous ER visits, and all imaging studies reviewed. CT head showed no acute process. CT head and neck showed no significant intracranial arterial abnormality. chest x-ray showed no acute process. blood glucose 220 from 245. 2 sets troponin negative. sodium 132 potassium 3 point chloride 99 CO2 18 BUN 13 creatinine 0.57 mag 1.4 started on Mag rider IV here. BNP 96. Differential dx cva, tia, hemorrhage, sepsis, uti, pneumonia, stemi, nstemi Discharge Plan Departure Patient Disposition: Admitted as Observation Clinical Impression: Acute confusion Admit Date/Time: 06/11/25 23:01 Admit Provider: Bi Zaman
[2025-06-11 19:13] LABS: Add Manual Diff / Slide Review NO; Hematocrit 39.3 % (36-46); Hemoglobin 13.9 g/dL (12.0-16.0); Lymphocytes Absolute Auto 1700 /uL (1100-4500); Mean Corpuscular HGB Conc 35.5 % (30-36); Mean Corpuscular Hemoglobin 31.0 PG (26-34); Mean Corpuscular Volume 87.4 fL (80-100); Platelet Count 256 X10^3/uL (150-400)
[2025-06-11 19:16] LABS: Alanine Aminotransferase 32 IU/L (<35); Albumin 4.8 g/dL (3.5-5.0); Albumin Globulin Ratio 2.0 (1.0-2.8); Alkaline Phosphatase 95 U/L (38-126); Blood Urea Nitrogen 13 mg/dL (7-17); Calcium 9.8 mg/dL (8.4-10.2); Carbon Dioxide 18 mmol/L (22-32); Chloride 99 mmol/L (98-107); Estimated Glomerular Filt Rate > 60 mL/min (>60); Globulin 2.4 g/dL (1.7-4.1); Glucose 231 mg/dL (70-99); HEMOLYSIS < 15 (0-50); Lipase 103 U/L (23-300); Magnesium 1.4 mg/dL (1.6-2.3); Potassium 3.5 mmol/L (3.4-5.1); Sodium 132 mmol/L (137-145); Total Protein 7.2 g/dL (6.3-8.2)
[2025-06-11 19:28] LABS: NT-proBNP (BNP-Adult 18+) 96 pg/mL (<125); Troponin I < 0.012 ng/mL (0.01-0.034)
--- NOTE | 2025-06-11 19:34 | EKG_ITS ---
[address] [address] Test Date: 2025-06-11 Pat Name: Marlene Meadows Department: [facility] Room: Gender: Female Delivery Room Supervisor: RYAN : 1955 Requested By: Order Number: [id number] Reading MD: Steve Harmon MD Measurements Intervals [place] Rate: 75 P: 55 AK: 144 QRS: 41 QRSD: 78 T: 56 QT: 360 QTc: 402 Interpretive Statements Sinus rhythm with premature supraventricular complexes Electronically Signed On 06-12-2025 7:18:12 PST by Steve Harmon MD
--- NOTE | 2025-06-11 19:45 | PC.NURSE ---
Patient has persistent lip smacking. Provider made aware of that and NIH score.
[2025-06-11 22:39] LABS: Troponin I < 0.012 ng/mL (0.01-0.034)
[2025-06-11] MEDS: MAGNESIUM SULFATE 2 GM/50 ML PIGGYBACK IV (23:49)
[2025-06-11] MEDS: SODIUM CHLORIDE 0.9% 1,000 ML 84 ML IV (23:49)
[2025-06-11 23:50] LABS: Thyroid Stimulating Hormone 1.63 uIU/mL (0.47-4.68)
[2025-06-12] VITALS (9 sets, daily range): BP systolic 153–185; BP diastolic 67–81; PULSE 55–84; RESP 16–24; TEMP 36.1–36.2; O2SAT 97–99; BMI 22.2
--- NOTE | 2025-06-12 06:37 | PM.HP.1 ---
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 Per the patient's 's report, the patient does have a history of CVA with some chronic left-sided weakness. However around 6:15 PM tonight the patient had some altered mental status with word difficulty. There is also some possible right leg weakness which is new. Otherwise there is no report of any fever, chills, nausea, vomiting, diarrhea, chest pain or shortness of breath. In the emergency room, the patient was hemodynamically stable. CT scan and CT angio of the head and neck shows no acute sign of stroke. Labs shows a sodium 132 and glucose of 231. WBC is normal. Trope is negative. Magnesium is 1.4. Magnesium replacement was started. By the time the patient was seen in the ER by me the symptoms has resolved though speech has improved but not resolved. ER Physician requested admission to monitor patient overnight and to consider an MRI in the morning to rule out stroke. Aspirin was given. 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) Mumps (~1958) Measles (~1963) Chicken pox (~1962) Anxiety (~2018) Asthma (~2019) H/O vaginal delivery Surgical History Anesthesia History of tonsillectomy (~1971) History of hernia repair (~1988) History of tubal ligation (~1978) Tumor (~1965) H/O vaginal hysterectomy Family History Father Bone cancer History of heart disease Hypertension Mother History of heart disease Hypertension Stroke Brother History of heart disease Hypertension Sister History of heart disease Grandfather Suicide Social History household members: spouse alcohol intake: never Meds Home Medications and Allergies Home Medications ?Medication ?Instructions ?Recorded ?Confirmed ?Type atorvastatin 40 mg tablet 40 mg PO DAILY 08/02/19 02/12/25 History lisinopril 40 mg tablet 40 mg PO DAILY 08/02/19 02/12/25 History metformin 500 mg tablet 1,000 mg PO BID 08/02/19 02/12/25 History cholecalciferol (vitamin D3) 25 50 mcg PO DAILY 12/30/19 02/12/25 History mcg (1,000 unit) capsule (Vitamin D3) multivitamin 1 tab PO DAILY 12/30/19 02/12/25 History aspirin 325 mg tablet 325 mg PO DAILY #90 tabs 08/28/22 02/12/25 Rx tramadol 50 mg tablet 50 mg PO Q8H PRN pain #10 tabs 01/11/24 02/12/25 Rx metoprolol succinate 25 mg 25 mg PO DAILY #30 tabs 11/27/24 02/12/25 Rx tablet,extended release 24 hr phenazopyridine 200 mg tablet 200 mg PO TID PRN pain 6 doses #6 01/30/25 02/12/25 Rx (Pyridium) tabs phenazopyridine 100 mg tablet 100 mg PO TID PRN pain 6 doses #6 02/12/25 02/12/25 Rx (Pyridium) tabs Allergies Allergy/AdvReac Type Severity Reaction Status Date / Time garlic AdvReac Intermediate acid reflux Verified 06/11/25 18:53 Influenza Virus Vaccines AdvReac Mild Verified 06/11/25 18:53 acetaminophen (From Tylenol) AdvReac Itching Verified 06/11/25 18:53 Exam Vital Signs (past 8 hours): - 06/11/25 22:45 06/11/25 22:45 06/11/25 23:00 Temperature Pulse Rate 62 60 Respiratory Rate 20 17 Blood Pressure 172/77 H Pulse Oximetry 99 98 Oxygen Delivery Method Room Air Oxygen Flow Rate 06/11/25 23:00 06/11/25 23:16 06/11/25 23:16 Temperature Pulse Rate 63 Respiratory Rate 24 Blood Pressure 171/80 H 198/90 H Pulse Oximetry 100 Oxygen Delivery Method Room Air Oxygen Flow Rate 06/11/25 23:30 06/11/25 23:30 06/11/25 23:45 Temperature Pulse Rate 65 62 Respiratory Rate 24 22 Blood Pressure 174/75 H Pulse Oximetry 99 97 Oxygen Delivery Method Room Air Oxygen Flow Rate 06/11/25 23:45 06/12/25 00:00 06/12/25 00:00 Temperature Pulse Rate 62 Respiratory Rate 23 Blood Pressure 173/82 H 172/77 H Pulse Oximetry 97 Oxygen Delivery Method Oxygen Flow Rate 06/12/25 00:15 06/12/25 00:15 06/12/25 00:30 Temperature Pulse Rate 58 L 58 L Respiratory Rate 24 21 Blood Pressure 157/74 H Pulse Oximetry 98 97 Oxygen Delivery Method Room Air Oxygen Flow Rate 06/12/25 00:30 06/12/25 00:45 06/12/25 00:45 Temperature Pulse Rate 55 L Respiratory Rate 21 Blood Pressure 156/74 H 153/74 H Pulse Oximetry 98 Oxygen Delivery Method Oxygen Flow Rate 06/12/25 01:00 06/12/25 01:00 06/12/25 02:02 Temperature 97.1 F L Pulse Rate 62 62 Respiratory Rate 21 16 Blood Pressure 178/81 H 185/72 H Pulse Oximetry 99 99 Oxygen Delivery Method Room Air Oxygen Flow Rate 0 Oxygen Delivery Method Room Air Oxygen Flow Rate 0 Narrative Exam Narrative: Physical Exam: GENERAL: The patient is not in any acute distressed. Awake and alert. HEENT: Nonicteric sclerae, PERRLA, EOMI. Oropharynx clear. Moist mucous membranes. Conjunctivae appear well perfused. HEART: Regular rate and rhythm without murmurs. No lower extremities edema. LUNGS: Clear to auscultation bilaterally. No wheezing, crackles or rhonchi ABDOMEN: Soft, positive bowel sounds, nontender. SKIN: No rash, no excessive bruising, petechiae, or purpura. NEUROLOGIC: Slightly sluggish speech. Bilateral leg weakness 4/5. Othrewise AxO x 2. Cranial nerves II-XII intact without motor/sensory deficit. Objective Labs 06/11/25 18:55 06/11/25 18:55 Labs: Laboratory Results - last 24 hr 06/11/25 06/11/25 06/11/25 18:48 18:55 19:27 WBC 8.6 RBC 4.50 Hgb 13.9 Hct 39.3 MCV 87.4 MCH 31.0 MCHC 35.5 RDW 11.6 Plt Count 256 Neut % (Auto) 72.2 Lymph % (Auto) 19.5 L [place] % (Auto) 6.2 Eos % (Auto) 1.5 L Baso % (Auto) 0.6 Neut # (Auto) 6200 Lymph # (Auto) 1700 [place] # (Auto) 500 Eos # (Auto) 100 Baso # (Auto) 100 Sodium 132 L Potassium 3.5 Chloride 99 Carbon Dioxide 18 L BUN 13 Creatinine 0.57 Estimated GFR > 60 BUN/Creatinine Ratio 22.8 H Glucose 231 H POC Whole Bld Glucose 245 H 220 H Calcium 9.8 Magnesium 1.4 L Total Bilirubin 0.6 AST 40 H ALT 32 Alkaline Phosphatase 95 Troponin I < 0.012 NT-Pro-B Natriuret Pep 96 Total Protein 7.2 Albumin 4.8 Globulin 2.4 Albumin/Globulin Ratio 2.0 Lipase 103 TSH 1.63 06/11/25 22:08 WBC RBC Hgb Hct MCV MCH MCHC RDW Plt Count Neut % (Auto) Lymph % (Auto) [place] % (Auto) Eos % (Auto) Baso % (Auto) Neut # (Auto) Lymph # (Auto) [place] # (Auto) Eos # (Auto) Baso # (Auto) Sodium Potassium Chloride Carbon Dioxide BUN Creatinine Estimated GFR BUN/Creatinine Ratio Glucose POC Whole Bld Glucose Calcium Magnesium Total Bilirubin AST ALT Alkaline Phosphatase Troponin I < 0.012 NT-Pro-B Natriuret Pep Total Protein Albumin Globulin Albumin/Globulin Ratio Lipase TSH Assessment & Plan Assessment & Plan narrative: Concern for new stroke. The patient's medical telemetry as observation. Although patient is reports symptoms is some confusion, speech and OT and right leg weakness. The patient does have history of stroke x 5 with residual left-sided weakness per the patient's report. CTA CT angiogram head and neck shows no acute finding for stroke. Will monitor patient's neurostatus overnight. Will get brain MRI in the morning to rule out stroke. Continue aspirin. PT OT and ST. Hypertension. Monitor blood pressure and treat accordingly. Non Insulin-dependent diabetes. Monitor glucose and treat with subcu stone. Hyperlipidemia. Resume home statin. DVT prophylaxis SCDs due to observation status. CODE STATUS DNR/DNI Disposition likely home in 1 to 2 days - As the provider of this telehealth evaluation, requested by the patient's evaluating physician, I attest that I introduced myself to the patient, provided my credentials and determined that telemedicine via a real-time, 2 way interactive audio and video platform is an appropriate and effective means of providing this service. - I reviewed the patient's chart and had a discussion with the member of the patient's treatment team. - The patient and I mutually agreed with continuation of this evaluation via telemedicine. The patient consented for the telemedicine evaluation. - This virtual encounter was taken place from [place] by Dr. Bi Zaman. The patient was evaluated at [facility]. The encounter was approximately 35 minutes. The nurse was present during the entire time of the encounter and was able assists with the stethoscope to listen to the patients. Time-Based Coding :: [TOTAL MINUTES] spent with patient and on the chart (including review of chart, obtaining history, exam, reviewing outside data, placing orders, documenting exam and treatment plan, and counseling patient) on [DATE].
--- NOTE | 2025-06-12 06:41 | DI.MRI.S_ITS ---
PROCEDURE: MR HEAD/BRAIN WO CON INDICATIONS: Rule out stroke TECHNIQUE: Noncontrast axial T1 spin echo, axial T2 fast spin echo, sagittal and axial FLAIR, coronal T2 fast spin echo, axial gradient echo, axial diffusion and ADC through the brain. COMPARISON: [facility], MR, MR HEAD/BRAIN WO CON, 08/27/2022, 13:00. FINDINGS: Image quality: Excellent. CSF Spaces: Basal cisterns are patent. No extra-axial fluid collections. Ventricles are normal in size and shape. Brain: No intracranial masses or hemorrhage. Chronic left globus pallidus infarct. Brainstem appears normal. Diffusion-weighted images demonstrate no acute infarct. Punctate subcortical FLAIR hyperintense foci consistent with small vessel ischemic change. Normal intravascular flow voids are present. Diffuse cerebral volume loss. Skull and face: Calvarium has normal marrow signal. Orbits appear normal. Sinuses: Sinuses and mastoids are clear. IMPRESSION: No acute abnormality. Dictated by: Bo Allen M.D. on 06/12/2025 at 10:41 Approved by: Bo Allen M.D. on 06/12/2025 at 10:47
[2025-06-12 07:13] LABS: Add Manual Diff / Slide Review NO; Hematocrit 37.8 % (36-46); Hemoglobin 13.4 g/dL (12.0-16.0); Lymphocytes Absolute Auto 1400 /uL (1100-4500); Mean Corpuscular HGB Conc 35.4 % (30-36); Mean Corpuscular Hemoglobin 30.6 PG (26-34); Mean Corpuscular Volume 86.5 fL (80-100); Platelet Count 239 X10^3/uL (150-400)
[2025-06-12 07:27] LABS: Blood Urea Nitrogen 8 mg/dL (7-17); Calcium 8.7 mg/dL (8.4-10.2); Carbon Dioxide 22 mmol/L (22-32); Chloride 104 mmol/L (98-107); Estimated Glomerular Filt Rate > 60 mL/min (>60); Glucose 153 mg/dL (70-99); HEMOLYSIS < 15 (0-50); Potassium 3.9 mmol/L (3.4-5.1); Sodium 135 mmol/L (137-145)
--- NOTE | 2025-06-12 08:19 | P.PN_ITS ---
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 Per the patient's 's report, the patient does have a history of CVA with some chronic left-sided weakness. However around 6:15 PM tonight the patient had some altered mental status with word difficulty. There is also some possible right leg weakness which is new. Otherwise there is no report of any fever, chills, nausea, vomiting, diarrhea, chest pain or shortness of breath. In the emergency room, the patient was hemodynamically stable. CT scan and CT angio of the head and neck shows no acute sign of stroke. Labs shows a sodium 132 and glucose of 231. WBC is normal. Trope is negative. Magnesium is 1.4. Magnesium replacement was started. By the time the patient was seen in the ER by me the symptoms has resolved though speech has improved but not resolved. ER Physician requested admission to monitor patient overnight and to consider an MRI in the morning to rule out stroke. Aspirin was given. Assessment & Plan Assessment & Plan narrative: Concern for new stroke. The patient's medical telemetry as observation. Although patient is reports symptoms is some confusion, speech and OT and right leg weakness. The patient does have history of stroke x 5 with residual left- sided weakness per the patient's report. CTA CT angiogram head and neck shows no acute finding for stroke. Will monitor patient's neurostatus overnight. Will get brain MRI in the morning to rule out stroke. Continue aspirin. PT OT and ST. Hypertension. Monitor blood pressure and treat accordingly. Non Insulin-dependent diabetes. Monitor glucose and treat with subcu stone. Hyperlipidemia. Resume home statin. DVT prophylaxis SCDs due to observation status. CODE STATUS DNR/DNI Disposition likely home in 1 to 2 days Exam Vital Signs (past 8 hours): - 06/12/25 00:30 06/12/25 00:30 06/12/25 00:45 Temperature Pulse Rate 58 L Respiratory Rate 21 Blood Pressure 156/74 H 153/74 H Pulse Oximetry 97 Oxygen Delivery Method Room Air Oxygen Flow Rate 06/12/25 00:45 06/12/25 01:00 06/12/25 01:00 Temperature Pulse Rate 55 L 62 Respiratory Rate 21 21 Blood Pressure 178/81 H Pulse Oximetry 98 99 Oxygen Delivery Method Room Air Oxygen Flow Rate 06/12/25 02:02 Temperature 97.1 F L Pulse Rate 62 Respiratory Rate 16 Blood Pressure 185/72 H Pulse Oximetry 99 Oxygen Delivery Method Oxygen Flow Rate 0 Oxygen Delivery Method Room Air Oxygen Flow Rate 0 Objective Labs 06/12/25 06:55 06/12/25 06:55 Labs: Laboratory Results - last 24 hr 06/11/25 06/11/25 06/11/25 18:48 18:55 19:27 WBC 8.6 RBC 4.50 Hgb 13.9 Hct 39.3 MCV 87.4 MCH 31.0 MCHC 35.5 RDW 11.6 Plt Count 256 Neut % (Auto) 72.2 Lymph % (Auto) 19.5 L [place] % (Auto) 6.2 Eos % (Auto) 1.5 L Baso % (Auto) 0.6 Neut # (Auto) 6200 Lymph # (Auto) 1700 [place] # (Auto) 500 Eos # (Auto) 100 Baso # (Auto) 100 Sodium 132 L Potassium 3.5 Chloride 99 Carbon Dioxide 18 L BUN 13 Creatinine 0.57 Estimated GFR > 60 BUN/Creatinine Ratio 22.8 H Glucose 231 H POC Whole Bld Glucose 245 H 220 H Calcium 9.8 Magnesium 1.4 L Total Bilirubin 0.6 AST 40 H ALT 32 Alkaline Phosphatase 95 Troponin I < 0.012 NT-Pro-B Natriuret Pep 96 Total Protein 7.2 Albumin 4.8 Globulin 2.4 Albumin/Globulin Ratio 2.0 Lipase 103 TSH 1.63 06/11/25 06/12/25 06/12/25 22:08 06:55 07:42 WBC 7.0 RBC 4.37 Hgb 13.4 Hct 37.8 MCV 86.5 MCH 30.6 MCHC 35.4 RDW 12.1 Plt Count 239 Neut % (Auto) 68.2 Lymph % (Auto) 20.5 L [place] % (Auto) 8.2 Eos % (Auto) 2.6 Baso % (Auto) 0.5 Neut # (Auto) 4800 Lymph # (Auto) 1400 [place] # (Auto) 600 Eos # (Auto) 200 Baso # (Auto) 0 Sodium 135 L Potassium 3.9 Chloride 104 Carbon Dioxide 22 BUN 8 Creatinine 0.50 L Estimated GFR > 60 BUN/Creatinine Ratio 16.0 Glucose 153 H POC Whole Bld Glucose 156 H Calcium 8.7 Magnesium Total Bilirubin AST ALT Alkaline Phosphatase Troponin I < 0.012 NT-Pro-B Natriuret Pep Total Protein Albumin Globulin Albumin/Globulin Ratio Lipase TSH PFSH Medical History 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 Wears dentures Bronchitis Acid reflux Allergies (~1962) Benign familial tremor (~1964) Mumps (~1958) Measles (~1963) Chicken pox (~1962) Anxiety (~2017) Asthma (~2018) H/O vaginal delivery Surgical History Anesthesia History of tonsillectomy (~1971) History of hernia repair (~1988) History of tubal ligation (~1978) Tumor (~1965) H/O vaginal hysterectomy Family History Father Bone cancer History of heart disease Hypertension Mother History of heart disease Hypertension Stroke Brother History of heart disease Hypertension Sister History of heart disease Grandfather Suicide Social History household members: spouse alcohol intake: never Assessment & Plan Time-Based Coding :: [TOTAL MINUTES] spent with patient and on the chart (including review of chart, obtaining history, exam, reviewing outside data, placing orders, documenting exam and treatment plan, and counseling patient) on [DATE].
--- NOTE | 2025-06-12 08:34 | PT.IIE ---
Surgical History (Last Reviewed 02/12/25 @ 13:32 by Hui Nguyen PA-C) Anesthesia H/O vaginal hysterectomy History of hernia repair (~1988) History of tonsillectomy (~1971) History of tubal ligation (~1978) Tumor (~1965) Medical History (Last Reviewed 02/12/25 @ 13:32 by Hui Nguyen PA-C) Acid reflux Allergies (~1962) Anxiety (~2017) Asthma (~2018) Benign familial tremor (~1964) Bronchitis Chicken pox (~1962) H/O vaginal delivery Measles (~1963) Mumps (~1958) POP-Q stage 2 cystocele Vaginal vault prolapse after hysterectomy Wears dentures Physical Therapy Inpatient Evaluation/Re-Eval M1 PT IP Prior Functional Status Start: 06/12/25 13:19 Freq: Status: Active Protocol: Document 06/12/25 13:19 NW (Rec: 06/12/25 13:32 NW [id number]) Medical Review Prior Functional Status Communication I, per pt's has difficulty to get her works out on occasion. Mobility and Gait I Activities of Daily I with ADL's, and pt's assist with IADL needs. Living and IADL's Social History Household Members spouse Living Arrangements Apartment/Condo Number of Stairs To 12 Enter/Railing? Home Environment Standard Height Toilet,Tub/Shower Additional Social Spouse helps with ascend for stairs. History Comment M2 PT-IP Current Condition Start: 06/12/25 13:19 Freq: Status: Active Protocol: Document 06/12/25 13:19 NW (Rec: 06/12/25 13:32 NW [id number]) Physical Therapy Current Condition Current Condition Evaluation Date 06/12/25 Treatment Diagnosis Possible CVA Onset Date 06/11/25 M3 PT-IP Subjective Start: 06/12/25 13:19 Freq: Status: Active Protocol: Document 06/12/25 13:19 NW (Rec: 06/12/25 13:32 NW [id number]) Subjective Physical Therapy Visit Type Type Initial Evaluation Visit Start Time 08:05 Visit Stop Time 08:34 Number of RIBBON BLOCKMAKER Visits 0 Physical Therapy Visit Comments Patient Comments Pt is found standing trying to untangle lines. Patient Goals Return home. M4 PT-IP Mobility and Gait Start: 06/12/25 13:19 Freq: Status: Active Protocol: Document 06/12/25 13:19 NW (Rec: 06/12/25 13:32 NW [id number]) PT-Transfer Assessment Sit to and From Stand Sit to and from Contact Guard Assistance Stand Equipment Transfer Assistive Gait Belt Device Transfers Transfer Destination Chair,Toilet Transfer Technique Stand Step Pivot Transfer Ability Level of Assist Contact Guard Assistance Comments Mobility Comments Pt is able to maintain stance upon standing with WBOS. BP when assessed was 198/78, retook to 168/78 mmHg. Gait Assessment Gait Gait Assistance Contact Guard Assist Required: Distance (Feet) 15 Assistive Devices Assistive Device Gait Belt Gait Deviations General Gait Pattern Decreased Stride Length,Wide Based Gait Comments Gait Comments Ambulates with irregular unsteady yuri. Adequate foot clearance and utilized leblanc for stability. PT-Balance Assessment Sitting Balance and Reactions Static Sitting Normal Balance Ability Dynamic Sitting Good Balance Ability Standing Balance and Reactions Static Standing Fair Balance Ability Dynamic Standing Fair Balance Ability Device Used none Functional Assessments Other Functional Tests did not perform secondary to elevated BP. Performed M5 PT-IP Objective Assessments Start: 06/12/25 13:19 Freq: Status: Active Protocol: Document 06/12/25 13:19 NW (Rec: 06/12/25 13:32 NW [id number]) Orientation Orientation/Cognition Level of Alertness Alert Orientation Name,Month Safety Awareness Decreased Safety Awareness Gross Range of Motion Upper Extremity ROM Assessment Within Functional Limits Lower Extremity ROM Assessment Within Functional Limits Strength Lower Extremity Strength Assessment Within Functional Limits Comments Strength Comments No appreciable strength deficits when assessed. Coordination Assessment Assessment Finger to Nose Test Moderate Impairment Foot Tapping Test Moderate Impairment Coordination L impaired Comments Sensation Assessment Sensation Gross Sensation WNL Light Touch Intact Muscle Tone Muscle Tone WNL Yes M6 PT-IP Treatment Start: 06/12/25 13:19 Freq: Status: Active Protocol: Document 06/12/25 13:19 NW (Rec: 06/12/25 13:32 NW [id number]) Physical Therapy Treatment Education Education Provided Safety Other Treatments Other Treatment Only getting up with staff present. Education to RN Performed about chair alarm. M7 PT-IP Assessment and Plan Start: 06/12/25 13:19 Freq: Status: Active Protocol: Document 06/12/25 13:19 NW (Rec: 06/12/25 13:32 NW [id number]) PT Summary Assessment and Plan Potential Rehabilitation Good Potential Status of Condition Evolving at Evaluation Summary Impairments Balance,Coordination,Gait Progress Towards Progressing Toward Goals Goals Assessment Summary Marlene is a 69 yr old female admitted for possible CVA with concurrent old BG CVA. Pt is a poor historian and is not orientated to anything other than name and month. Unable to determine prior level of function because of this. Pt is able to perform transfers and gait to and from the bathroom at [facility] with notable gait abnormalities secondary to utilizing leblanc occasionally for support with WBOS. Pt demonstrates poor safety awareness and RN notified to place chair alarm on pt. Currently recommending home health upon discharge for a home safety set up and address mobility concerns in home environment. Goals Bed Mobility Goal Independent Transfer Goal Independent Gait Goal Independent Gait Distance 50 Other Goals Navigate sideways on stairs with unilateral railing for 12 steps. Days to Meet Goals 2 Treatment Plan Physical Therapy Bed Mobility Training,Transfer Training,Gait Training, Treatment Plan Balance Retraining,Discharge Planning,Neuromuscular Re- ed,Coordination Retraining Other Trial stairs with regular BP Recommendations and Next Treatment Focus Precautions Other Precautions falls risk Recommendations To Nursing Amount of Assist 1 Person Assist Needed Discharge Recommendations PT Discharge Home with Assistance,Home Health Recommendations Other Discharge States lives with who is able to assist. Recommendations Transportation Needs Private Vehicle at Discharge - PT assist 1
[2025-06-12] MEDS: METOPROLOL ER 25 MG TABLET PO (09:03)
[2025-06-12] MEDS: ATORVASTATIN 20 MG TABLET 40 MG PO (09:03)
[2025-06-12] MEDS: ASPIRIN EC 325 MG TABLET PO (09:03)
--- NOTE | 2025-06-12 11:55 | OT.IP.EVAL ---
Past Medical History (Last Reviewed 02/12/25 @ 13:32 by Hui Nguyen PA-C) Acid reflux Allergies (~1962) Anxiety (~2018) Asthma (~2019) Benign familial tremor (~1964) Bronchitis Chicken pox (~1962) H/O vaginal delivery Measles (~1963) Mumps (~1958) POP-Q stage 2 cystocele Vaginal vault prolapse after hysterectomy Wears dentures Surgical History (Last Reviewed 02/12/25 @ 13:32 by Hui Nguyen PA-C) Anesthesia H/O vaginal hysterectomy History of hernia repair (~1988) History of tonsillectomy (~1971) History of tubal ligation (~1978) Tumor (~1965) Occupational Therapy Inpatient Evaluation/Re-Eval M1 OT IP Prior Functional Status Start: 06/12/25 11:38 Freq: Status: Active Protocol: Document 06/12/25 11:39 [facility] (Rec: 06/12/25 11:55 [facility] Desktop) Medical Review Prior Functional Status Communication I, per pt's has difficulty to get her works out on occasion. Mobility and Gait I Activities of Daily I with ADL's, and pt's assist with IADL needs. Living and IADL's Social History Household Members spouse Living Arrangements Apartment/Condo Number of Stairs To 15 steps with right rail Enter/Railing? Home Environment High Toilet,Tub/Shower M2 OT-IP Current Condition Start: 06/12/25 11:38 Freq: Status: Active Protocol: Document 06/12/25 11:39 [facility] (Rec: 06/12/25 11:55 [facility] Desktop) Occupational Therapy Current Condition Current Condition Evaluation Date 06/12/25 Treatment Diagnosis AMS/TIA Diagnosis Onset Date 06/11/25 M3 OT- IP Subjective and Pain Start: 06/12/25 11:38 Freq: Status: Active Protocol: Document 06/12/25 11:39 [facility] (Rec: 06/12/25 11:55 [facility] Desktop) OT- Subjective Occupational Therapy Visit Type Type Initial Evaluation Visit Start Time 10:55 Visit Stop Time 11:30 Occupational Therapy Visit Comments Patient Comments Pt agreed to do OT eval and pt's present at the end of the session. Patient/Caregiver To go home. Goals OT Pain Assessment Pain When Pain Assessed At Rest Pain Present Pain Present Denied Pain M4 OT- IP ADL's Start: 06/12/25 11:38 Freq: Status: Active Protocol: Document 06/12/25 11:39 [facility] (Rec: 06/12/25 11:55 [facility] Desktop) OT [id number] Comments OT Self-Feeding not at meal time Comments OT ADL-Grooming General Evaluation Areas Needing Retrieving/Set-up of Grooming Items Assistance Comments OT Grooming Comments vc for completeness OT ADL-Oral Care General Eval Oral Care Ability Standby Assistance Areas of Assistance Retrieving/Set-Up of Items Comments Oral Care Comments VC for completeness and sequence OT ADL-Dressing General Eval Lower Body Dressing Standby Assistance Ability OT ADL-Toileting General Evaluation Toileting Ability Standby Assistance Comments OT Toileting VC for completeness and safety Comments OT ADL-Bathing Comments OT Bathing Comments Pt will benefit from at least supervision and shower chair M5 OT- IP IADL's Start: 06/12/25 11:38 Freq: Status: Active Protocol: Document 06/12/25 11:39 [facility] (Rec: 06/12/25 11:55 [facility] Desktop) OT-Instrumental Activities of Daily Living Home Safety Awareness Awareness of Need Decreased Awareness for Assistance at Home Ability to Problem Unable to Problem Solve Solve Emergency Situations Home Safety Comments Pt states, I do not know, to home safety questions. Medication Management Medication Caregiver Administers Management Money Management Money Management Caregiver Provides Assistance Meal Preparation Meal Preparation Caregiver Provides Assist Cad Design Engineer Cad Design Engineer Caregiver Provides Assist M6 OT- IP Functional Cognition Start: 06/12/25 11:38 Freq: Status: Active Protocol: Document 06/12/25 11:39 [facility] (Rec: 06/12/25 11:55 [facility] Desktop) Cognitive Factors Limiting Selfcare Function Cognitive Ability Level of Alertness Confusional State Patient Orientation Name Attention Span Capable of Focused Attention,Unable to Sustain Ability Attention Ability to Follow Able to Follow One Step Commands with Increased Time, Commands Able to Follow One Step Commands with Repetition Memory Description Short Term Impaired,Working Impaired Safety Awareness Underestimates Need for Assistance Problem Solving Unable to Identify Errors,Needs Assist to Identify Ability Solutions Executive Function Unable to Make Plans,Unable to Organize Plans,Unable to Ability Remember Details Cognitive Tests SLUMS Pt not able to complete SLUMS as just able to complete 6 items and only scoring 2. Pt would repeat, I don't know. Pt agrees that she is not about to think well at this time. Cognitive Comments Cognitive Assessment Pt having difficulty with word finding, initiation, and Comments needing concrete cues to follow.Went over ways for pt to help pt get her words out, spoke of following a routine, etc. OT- Vision and Hearing OT- Vision Assessment Vision History Cataracts Visual Acuity Glasses All The Time Visual Attentiveness WFL Occular Pursuits WFL Visual Convergence WFL Visual [place] WFL M7 OT- IP Mobility and Balance Start: 06/12/25 11:38 Freq: Status: Active Protocol: Document 06/12/25 11:39 [facility] (Rec: 06/12/25 11:55 [facility] Desktop) OT- Bed Mobility Assessment Supine to Sit Supine to Sit Assist Standby Assistance Sit to Supine Sit to Supine Assist Standby Assistance OT-Transfer Assessment Sit to and From Stand Sit to and from Standby Assistance Stand Transfers Transfer Ability Standby Assistance Technique Transfer Destination Bed,Toilet Transfer Technique Stand Step Pivot Devices Transfer Assistive Gait Belt Devices Comments Mobility Comments SBA vc for safety. OT- Balance Assessment Sitting Balance and Reactions Static Sitting Normal Balance Ability Dynamic Sitting Normal Balance Ability Standing Balance and Reactions Static Standing Good Balance Ability Dynamic Standing Fair Balance Ability M8 OT- IP Objective Assessments Start: 06/12/25 11:38 Freq: Status: Active Protocol: Document 06/12/25 11:39 [facility] (Rec: 06/12/25 11:55 [facility] Desktop) OT Gross Range of Motion Upper Extremity Range of Motion Assessment Within Functional Limits OT Strength Upper Extremity Strength Assessment Within Functional Limits Comments Strength Comments Pt slight ataxic with right hand while doing finger to thumb. M9 OT- IP Assessment and Plan Start: 06/12/25 11:38 Freq: Status: Active Protocol: Document 06/12/25 11:39 [facility] (Rec: 06/12/25 11:55 [facility] Desktop) OT Summary Assessment and Plan Potential Rehabilitation Fair Potential Analytic Complexity Low at Evaluation Summary OT Impairments Balance,Functional Cognition,Functional Mobility, Grooming,Dressing,Toileting,Bathing,Toilet Transfers, Shower Transfers,Activity Tolerance Progress Towards Progressing Toward Goals,Slow Progress due to Cognition Goals Assessment Summary Pt MOD complexity and here with TIA. Pt needing increased time for problem solving, getting her words out and to initiate movements. Pt at this time will benefit from 24/7 assist from her and have home health PT,OT, and NUT PROCESS HELPER. Goals Self-Feeding Goal Standby Assistance Grooming Goal Standby Assistance Dressing Goal Standby Assistance Toileting Goal Standby Assistance Bathing Goal Minimal Assistance Toilet Transfer Goal Standby Assistance Shower Transfer Goal Standby Assistance Days to Meet Goals 7 Frequency of Treatment Other frequency 5x/week Treatment Plan OT Treatment Plan ADL Training,Functional Cognition Training,Functional Mobility,Patient/Family Education,Discharge Planning Discharge Recommendations OT Discharge Home with 16/01 Assist Available,Home Health Recommendations Home Equipment Needs shower chair Transportation Needs Private Vehicle at Discharge
--- NOTE | 2025-06-12 12:18 | CM.DANOTE ---
Patient is a 69 yo female who was admitted OBS Status on 06/11/25 for TIA vs CVA r/o. Pt has [facility] and [employer] for insurance and her PCP is Dr. Hui Marin. EMR was reviewed. Per MD, pt with hx of prior CVA x5 with chronic left side weakness. Pt to have MRI today and some bp issues. Per MD, pending imaging results may be stable for discharge home today. Per PT/OT, pt ambulating well but impulsive and safety awareness issues and main deficit is her cognition/aphagia. Recommending outpt ST. SW met bedside with pt and spouse as OT finishing up and spouse confirms they lives at home in [place] and pt is typically independent with mobility and seems close to baseline currently but confirms increased difficulty with getting her words out. Pt does not use DME for ambulation at baseline and no longer drives and spouse provides transport. They deny any hx of HH or SNF and confirm they do not meet homebound criteria for HH. SW discussed outpt ST and spouse confirms that he has used outpt PT for himself in the past and they will work to try to get seen by outpt ST there and work with their PCP office. They confirm preference is home when stable and do not anticipate any further needs at this time. Plan: SW to follow for plan of discharge home with spouse today vs tomorrow when medically stable and outpt ST follow up. CÉSAR Young Discharge Planning/Care Management CM Discharge Assessment Start: 06/12/25 00:05 Freq: Status: Active Protocol: Document 06/12/25 12:16 BF (Rec: 06/12/25 12:18 BF [id number]) Discharge Planning Assessment Assigned Discharge CÉSAR Cortes Photolithographic Stripper Provider Dr. Hui Marin Insurance Medicare DPOA/Assigned spouse Designee Name Advance Directives? No Advance Directives No on File History Provided By Patient,Significant Other,Medical Record Has Patient been No admitted in last 30 days? Comment last admit in August 2022 home with spouse and no needs Prior Living Apartment/Condo Arrangements Household Members spouse Type of Relies on Others transporation used prior to admit Comment Spouse provides transport Independent with ADL Yes: somewhat 's Is patient alert and Yes: somewhat, some ongoing cog impairment from CVAs oriented? 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 Arrangement Referrals Initiated None needed Whiteboard Updated Yes in Patient Room with name and ext. # of Rail Operations Controller Review Status In Process Please Provide Date 06/12/25 Initial DC Assessment Was Performed Next Review Type Continued Stay Review
[2025-06-12 12:43] LABS: Appearance Urine UA CLEAR; Bilirubin Urine UA NEGATIVE (NEGATIVE); Color Urine UA YELLOW; Glucose Urine UA 3+ g/dL (Negative); Ketones Urine UA NEGATIVE (NEGATIVE); Leukocyte Esterase Urine UA NEGATIVE (NEGATIVE); Nitrite Urine UA NEGATIVE (Negative); Occult Blood Urine UA NEGATIVE (Negative); Protein Urine UA NEGATIVE (Negative); Specific Gravity Urine UA 1.010 (1.000-1.035); Urobilinogen Urine UA 0.2 E.U./dL (0.2)
[2025-06-12 12:56] LABS: pH Urine UA 6.0 (4.5-8.0)
[2025-06-12 13:00] LABS: Culture Indicated Urine Cult Not Indicated
--- NOTE | 2025-06-12 14:22 | PM.DS.1 ---
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 Per the patient's 's report, the patient does have a history of CVA with some chronic left-sided weakness. However around 6:15 PM tonight the patient had some altered mental status with word difficulty. There is also some possible right leg weakness which is new. Otherwise there is no report of any fever, chills, nausea, vomiting, diarrhea, chest pain or shortness of breath. In the emergency room, the patient was hemodynamically stable. CT scan and CT angio of the head and neck shows no acute sign of stroke. Labs shows a sodium 132 and glucose of 231. WBC is normal. Trope is negative. Magnesium is 1.4. Magnesium replacement was started. By the time the patient was seen in the ER by me the symptoms has resolved though speech has improved but not resolved. ER Physician requested admission to monitor patient overnight and to consider an MRI in the morning to rule out stroke. Aspirin was given. Discharge Providers Provider Date of admission: 06/11/25 23:01 Discharge Date: 06/12/25 Primary care physician: Hui Marin MD Consults: 06/11/25 23:00 Consult to Occupational Therapy Evaluate & Treat Comment: Physician Instructions: Evaluate and treat Consult to Physical Therapy Evaluate & Treat Comment: Physician Instructions: Evaluate and Treat Discharge provider: Lázaro Estevez MD Summary Hospital Course Hospital Course: Ruled out new Stroke: -Telemetry, neurologic nursing observation, brain MRI all reassuring. No acute or new stroke on MRI. -occupational therapy and speech therapy note continued confusion consistent with probable vascular dementia. -MRI shows the old left globus pallidus stroke accounting for the chronic left-sided weakness per the patient's report. -CTA CT angiogram head and neck shows no acute finding for stroke. -Continue aspirin. Encephalopathy/Probable new diagnosis of vascular dementia: -her describes approximately 2 episodes per month of difficulty finding words to express herself. She remains quite confused and is unable to participate in a slums evaluation. The appearance of the MRI is consistent with previous small areas of ischemia potentially causing vascular dementia. -no other UA or metabolic causes of encephalopathy identified. Hypertension. Continue metoprolol and lisinopril. Non Insulin-dependent diabetes. Continue metformin Hyperlipidemia. Continue atorvastatin Hypomagnesemia. Magnesium level 1.4. 2 g IV magnesium given. Follow up with PCP CODE STATUS DNR/DNI Patient of Dr. Marin. In any future admissions she would preferably be admitted to that hospital rounding service. Status at Discharge Cognitive/behavioral status at discharge: at baseline, confused Functional status at discharge: uses cane/walker Overall status at discharge: patient is progressing back to baseline Time Spent with Patient Time spent: Greater than 30 minutes Exam Vital Signs (past 8 hours): - 06/12/25 08:00 06/12/25 09:03 06/12/25 09:03 Temperature 96.9 F L Pulse Rate 62 77 77 Respiratory Rate 16 Blood Pressure 163/75 H 160/67 H 160/67 H Pulse Oximetry 99 Oxygen Flow Rate 0 06/12/25 12:06 Temperature Pulse Rate 84 Respiratory Rate Blood Pressure 180/70 H Pulse Oximetry Oxygen Flow Rate Oxygen Delivery Method Room Air Oxygen Flow Rate 0 Narrative Exam Narrative: Alert and oriented to her name. Very limited question answering ability. Her speaks for her. Heart is regular rate and rhythm without murmur. Lungs are clear to auscultation bilaterally. Extremities have no ankle edema. No significant lateralizing deficits or cranial nerve abnormality identified. Objective Labs 06/12/25 06:55 06/12/25 06:55 Labs: Laboratory Results - last 24 hr 06/11/25 06/11/25 06/11/25 18:48 18:55 19:27 WBC 8.6 RBC 4.50 Hgb 13.9 Hct 39.3 MCV 87.4 MCH 31.0 MCHC 35.5 RDW 11.6 Plt Count 256 Neut % (Auto) 72.2 Lymph % (Auto) 19.5 L [place] % (Auto) 6.2 Eos % (Auto) 1.5 L Baso % (Auto) 0.6 Neut # (Auto) 6200 Lymph # (Auto) 1700 [place] # (Auto) 500 Eos # (Auto) 100 Baso # (Auto) 100 Sodium 132 L Potassium 3.5 Chloride 99 Carbon Dioxide 18 L BUN 13 Creatinine 0.57 Estimated GFR > 60 BUN/Creatinine Ratio 22.8 H Glucose 231 H POC Whole Bld Glucose 245 H 220 H Calcium 9.8 Magnesium 1.4 L Total Bilirubin 0.6 AST 40 H ALT 32 Alkaline Phosphatase 95 Troponin I < 0.012 NT-Pro-B Natriuret Pep 96 Total Protein 7.2 Albumin 4.8 Globulin 2.4 Albumin/Globulin Ratio 2.0 Lipase 103 TSH 1.63 Urine Color Urine Appearance Urine pH Ur Specific [place] Urine Protein Urine Glucose (UA) Urine Ketones Urine Occult Blood Urine Nitrate Urine Bilirubin Urine Urobilinogen Ur Leukocyte Esterase Urine RBC Urine WBC Ur Squamous Epith Cells Urine Bacteria Ur Culture Indicated? Vol Urine Centrifuged 06/11/25 06/12/25 06/12/25 22:08 06:55 07:42 WBC 7.0 RBC 4.37 Hgb 13.4 Hct 37.8 MCV 86.5 MCH 30.6 MCHC 35.4 RDW 12.1 Plt Count 239 Neut % (Auto) 68.2 Lymph % (Auto) 20.5 L [place] % (Auto) 8.2 Eos % (Auto) 2.6 Baso % (Auto) 0.5 Neut # (Auto) 4800 Lymph # (Auto) 1400 [place] # (Auto) 600 Eos # (Auto) 200 Baso # (Auto) 0 Sodium 135 L Potassium 3.9 Chloride 104 Carbon Dioxide 22 BUN 8 Creatinine 0.50 L Estimated GFR > 60 BUN/Creatinine Ratio 16.0 Glucose 153 H POC Whole Bld Glucose 156 H Calcium 8.7 Magnesium Total Bilirubin AST ALT Alkaline Phosphatase Troponin I < 0.012 NT-Pro-B Natriuret Pep Total Protein Albumin Globulin Albumin/Globulin Ratio Lipase TSH Urine Color Urine Appearance Urine pH Ur Specific [place] Urine Protein Urine Glucose (UA) Urine Ketones Urine Occult Blood Urine Nitrate Urine Bilirubin Urine Urobilinogen Ur Leukocyte Esterase Urine RBC Urine WBC Ur Squamous Epith Cells Urine Bacteria Ur Culture Indicated? Vol Urine Centrifuged 06/12/25 12:11 WBC RBC Hgb Hct MCV MCH MCHC RDW Plt Count Neut % (Auto) Lymph % (Auto) [place] % (Auto) Eos % (Auto) Baso % (Auto) Neut # (Auto) Lymph # (Auto) [place] # (Auto) Eos # (Auto) Baso # (Auto) Sodium Potassium Chloride Carbon Dioxide BUN Creatinine Estimated GFR BUN/Creatinine Ratio Glucose POC Whole Bld Glucose Calcium Magnesium Total Bilirubin AST ALT Alkaline Phosphatase Troponin I NT-Pro-B Natriuret Pep Total Protein Albumin Globulin Albumin/Globulin Ratio Lipase TSH Urine Color Yellow Urine Appearance Clear Urine pH 6.0 Ur Specific [place] 1.010 Urine Protein Negative Urine Glucose (UA) 3+ H Urine Ketones Negative Urine Occult Blood Negative Urine Nitrate Negative Urine Bilirubin Negative Urine Urobilinogen 0.2 Ur Leukocyte Esterase Negative Urine RBC None seen Urine WBC None seen Ur Squamous Epith Cells 0-1 /hpf Urine Bacteria None seen Ur Culture Indicated? Cult not indicated Vol Urine Centrifuged 10ml (spun) PFSH Medical History 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 Wears dentures Bronchitis Acid reflux Allergies (~1962) Benign familial tremor (~1964) Mumps (~1958) Measles (~1963) Chicken pox (~1962) Anxiety (~2017) Asthma (~2018) H/O vaginal delivery Surgical History Anesthesia History of tonsillectomy (~1971) History of hernia repair (~1988) History of tubal ligation (~1978) Tumor (~1965) H/O vaginal hysterectomy Family History Father Bone cancer History of heart disease Hypertension Mother History of heart disease Hypertension Stroke Brother History of heart disease Hypertension Sister History of heart disease Grandfather Suicide Social History household members: spouse alcohol intake: never Discharge Plan Discharge Plan Patient Disposition: Home Provider Discharge Comment: Follow up with Dr. Marin in 1-2 weeks. Discharge orders & Medications Prescriptions: New aspirin 81 mg tablet 81 mg PO DAILY Qty: 30 0RF Continued metformin 500 mg tablet 1,000 mg PO BID lisinopril 40 mg tablet 40 mg PO DAILY atorvastatin 40 mg tablet 40 mg PO DAILY multivitamin Tablet 1 tab PO DAILY cholecalciferol (vitamin D3) [Vitamin D3] 25 mcg (1,000 unit) Capsule 50 mcg PO DAILY tramadol 50 mg tablet 50 mg PO Q8H PRN (Reason: pain) Qty: 10 0RF metoprolol succinate 25 mg tablet extended release 24 hr 25 mg PO DAILY Qty: 30 0RF Follow up/Referrals: Hui Marin MD [Primary Care Provider, Family Practice] Diet/Activity/Treatments Diet: Low-cholesterol Other treatments: Outpatient referral for speech therapy Visit Report/Discharge Packet Stand Alone Forms: [employer], Patient Portal/API, Stroke Signs & Symptoms, Influenza Vaccine Info, Notice of Privacy Practices, Inpatient vs Outpatient, Pneumococcal Vaccine Info, Pt. Rights & Responsibilities Discharge Data Primary Care Provider: Hui Marin Attending Provider: Bi Zaman Admchucho Date/Time: 06/11/25 23:01
--- NOTE | 2025-06-12 14:51 | PC.NURSE ---
Discharge instructions given and understood. PIV and telemetry removed. PT discharged with pt's family via private vehicle, escorted to the entrance via wheelchair
== END 2025-06-12 14:40 | disposition home or self-care (01) ==
LOC: ED 23:01 → AC 23:02
PROVIDERS: Family Medicine; Admitting Provider Internal Medicine; Emergency Provider Family Medicine; Family Provider Family Medicine; PCP Family Medicine; Referring Provider Family Medicine; Visit Provider Internal Medicine
DX: G93.40 Encephalopathy, unspecified (principal); R41.0 Disorientation, unspecified; E83.42 Hypomagnesemia; I10 Essential (primary) hypertension; E78.5 Hyperlipidemia, unspecified; E11.9 Type 2 diabetes mellitus without complications; J45.909 Unspecified asthma, uncomplicated; I69.354 Hemiplegia and hemiparesis following cerebral infarction affecting left non-dominant side; R29.700 NIHSS score 0; Z66 Do not resuscitate
CPT/HCPCS: 36415; 70450; 70496; 70498; 70551; 71045; 80048; 80053; 81001; 81003; 82962; 83690; 83735; 83880; 84443; 84484; 85025; 93005; 93010; 96365; 96366; 97129; 97166; 97530; 99284; G0378; J3475; J7030; Q9967